=== PATIENT | male | born 1965 | race Two or more races ===

== ENCOUNTER → 2017-02-18 | Outpatient (CLI) | payer BC ==
--- NOTE | 2017-02-18 15:11 | RAD ---
Indication right anterior shoulder pain no known injury. Internally and externally rotated views of the right shoulder as well as a Y view were obtained. No bony abnormality is seen
== END | disposition home or self-care (01) ==
LOC: RAD 14:39
PROVIDERS: ATTEND Family Medicine
DX: M25.511 Pain in right shoulder (principal)
CPT/HCPCS: 73030

== ENCOUNTER 2017-05-27 19:50 | Inpatient (IN) | payer BC ==
[~2017-05-27] VITALS: Ht 170.2 cm; Wt 94.9 kg
--- NOTE | 2017-05-27 21:22 | PHYS DOC ---
Past Medical History Past Medical History: Diabetes-Type I, Hypertension, Other Additional Past Medical Histor: rheumatic fever Past Surgical History: Cholecystectomy Alcohol Use: Rarely Drug Use: None Adult General Chief Complaint Chief Complaint: MULTIPLE COMPLAINTS HPI HPI Patient is a 51 year old male who presents with complaint of abdominal pain and body aches. Patient states his symptoms have been present over the past 2-3 days. Patient states that he has been having fever off and on at home. Patient denies any associated nausea or vomiting and has denied any diarrhea. Patient states that the pain is generalized throughout his abdomen. Patient rates his pain currently as 5 out of 10. Patient denies any known exacerbating or alleviating factors at this time. Patient has history of hypertension and diabetes mellitus. The patient states that he has not been taking any medications for several weeks. Patient states that he followed previously with Dr. Maddox, however he is switching over to see Dr. Quezada. Patient states that he took ibuprofen earlier today at approximate 1400 for treatment of fever. Patient states that this does not help significantly with his abdominal pain. Review of Systems Review of Systems Constitutional: Fever, chills, bodyaches[] Eyes: Denies change in visual acuity, redness, or eye pain [] HENT: Denies nasal congestion or sore throat [] Respiratory: Denies cough or shortness of breath [] Cardiovascular: Denies chest pain or edema[] GI: Abdominal pain, denies nausea, vomiting, bloody stools or diarrhea [] : Denies dysuria or hematuria [] Musculoskeletal: Denies back pain or joint pain [] Integument: Denies rash or skin lesions [] Neurologic: Denies headache, focal weakness or sensory changes [] Current Medications Current Medications Current Medications Medications (Trade) Dose Ordered Sig/[facility] Start Time Stop Time Status Last Admin Dose Admin Fentanyl Citrate (Fentanyl 2ml Vial) 50 mcg PRN Q15MIN PRN 05/27/17 21:30 05/28/17 21:29 05/27/17 22:31 50 MCG Info (Do NOT chart on this entry -- for MONITORING) 1 each PRN DAILY PRN 05/27/17 21:45 05/29/17 21:44 Iohexol (Omnipaque 300 Mg/ml) 60 ml 1X ONCE 05/27/17 21:45 05/27/17 21:46 DC 05/27/17 22:40 60 ML Ondansetron HCl (Zofran) 4 mg 1X ONCE 05/27/17 21:30 05/27/17 21:31 DC 05/27/17 21:33 4 MG Sodium Chloride 1,000 ml @ 720 mls/hr Q1H24M 05/27/17 21:30 05/28/17 01:30 05/27/17 21:30 720 MLS/HR Allergies Allergies Allergies Coded Allergies Type Severity Reaction Last Updated Verified tetanus and diphtheria toxoids Allergy Unknown Anaphylaxis 05/27/17 Yes Physical Exam Physical Exam Constitutional: Alert, afebrile, hypertensive, appears in moderate discomfort. [ ] HENT: Normocephalic, atraumatic, bilateral external ears normal, oropharynx moist, no oral exudates, nose normal. [] Eyes: PERRLA, EOMI, conjunctiva normal, no discharge. [] Neck: Normal range of motion, no tenderness, supple, no stridor. [] Cardiovascular: Tachycardia, regular rhythm, no murmur [] Lungs & Thorax: Bilateral breath sounds clear to auscultation [] Abdomen: Bowel sounds normal, soft, diffusely tender in all 4 quadrants, minimal guarding, no rebound tenderness, no masses, no pulsatile masses. [] Skin: Warm, dry, no erythema, hyperpigmentation of the bilateral lower extremities. [] Back: No tenderness, no CVA tenderness. [] Extremities: No tenderness, no cyanosis, no clubbing, ROM intact, no edema. [] Neurologic: Alert and oriented X 3, normal motor function, normal sensory function, no focal deficits noted. [] Current Patient Data Vital Signs Vital Signs Date Time Temp Pulse Resp B/P (MAP) Pulse Ox O2 Delivery O2 Flow Rate FiO2 05/27/17 22:31 20 96 Room Air 05/27/17 20:20 98.2 110 209/105 (139) 98.2 Lab Values Laboratory Tests Test 05/27/17 20:36 05/27/17 20:45 05/27/17 22:00 White Blood Count 5.4 x10^3/uL (4.0-11.0) Red Blood Count 4.71 x10^6/uL (4.30-5.70) Hemoglobin 13.9 g/dL (13.0-17.5) Hematocrit 39.9 % (39.0-53.0) Mean Corpuscular Volume 85 fL (79-100) Mean Corpuscular Hemoglobin 30 pg (25-35) Mean Corpuscular Hemoglobin Concent 35 g/dL (31-37) Red Cell Distribution Width 12.8 % (11.5-14.5) Platelet Count 125 x10^3/uL (140-400) L Neutrophils (%) (Auto) 78 % (31-73) H Lymphocytes (%) (Auto) 13 % (24-48) L Monocytes (%) (Auto) 9 % (0-9) Eosinophils (%) (Auto) 0 % (0-3) Basophils (%) (Auto) 1 % (0-3) Neutrophils # (Auto) 4.2 x10^3uL (1.8-7.7) Lymphocytes # (Auto) 0.7 x10^3/uL (1.0-4.8) L Monocytes # (Auto) 0.5 x10^3/uL (0.0-1.1) Eosinophils # (Auto) 0.0 x10^3/uL (0.0-0.7) Basophils # (Auto) 0.0 x10^3/uL (0.0-0.2) Prothrombin Time 13.2 SEC (11.7-14.0) Prothrombin Time INR 1.1 (0.8-1.1) PTT 32 SEC (24-38) Sodium Level 134 mmol/L (136-145) L Potassium Level 4.5 mmol/L (3.5-5.1) Chloride Level 100 mmol/L (98-107) Carbon Dioxide Level 25 mmol/L (21-32) Anion Gap 9 (6-14) Blood Urea Nitrogen 18 mg/dL (8-26) Creatinine 1.4 mg/dL (0.7-1.3) H Estimated GFR (Cockcroft-Gault) 53.2 BUN/Creatinine Ratio 13 (6-20) Glucose Level 288 mg/dL (70-99) H Calcium Level 8.4 mg/dL (8.5-10.1) L Total Bilirubin 0.6 mg/dL (0.2-1.0) Aspartate Amino Transferase (AST) 67 U/L (15-37) H Alanine Aminotransferase (ALT) 87 U/L (16-63) H Alkaline Phosphatase 97 U/L (46-116) Creatine Kinase 166 U/L (39-308) Creatine Kinase MB (Mass) < 0.5 ng/mL (0.0-3.6) Creatine Kinase MB Relative Index 0.3 % (0-4) Troponin I Quantitative < 0.017 ng/mL (0.000-0.055) Total Protein 7.2 g/dL (6.4-8.2) Albumin 3.1 g/dL (3.4-5.0) L Albumin/Globulin Ratio 0.8 (1.0-1.7) L Lipase 180 U/L (73-393) Urine Collection Type Unknown Urine Color Yellow Urine Clarity Clear Urine pH 6.0 Urine Specific [place] >=1.030 Urine Protein >=300 mg/dL (NEG-TRACE) Urine Glucose (UA) >=1000 mg/dL (NEG) Urine Ketones (Stick) Trace mg/dL (NEG) Urine Blood Moderate (NEG) Urine Nitrite Negative (NEG) Urine Bilirubin Negative (NEG) Urine Urobilinogen Dipstick 1.0 mg/dL (0.2 mg/dL) Urine Leukocyte Esterase Negative (NEG) Urine RBC 6-10 /HPF (0-2) Urine WBC 0 /HPF (0-4) Urine Squamous Epithelial Cells Occ /LPF Urine Amorphous Sediment Present /HPF Urine Bacteria 0 /HPF (0-FEW) Urine Mucus Slight /LPF Lactic Acid Level 1.1 mmol/L (0.4-2.0) Laboratory Tests 05/27/17 20:36 Laboratory Tests 05/27/17 20:36 EKG EKG Interpreted by me: Heart rate 107, sinus tachycardia, leftward axis, ST elevations in V1 and V2, no contiguous reciprocal changes noted[] Radiology/Procedures Radiology/Procedures One view chest x-ray interpreted by me: No infiltrates, no effusions, normal cardiac silhouette [facility] [address] [place] [address] IMAGING REPORT Signed PATIENT: GAGAN ZARATE ACCOUNT: [id number] : 1965 LOCATION: ER AGE: 51 SEX: M EXAM STATUS: REG ER ORD. PHYSICIAN: ERIC PATEL MD REASON: abdominal pain, fever PROCEDURE: CT ABD PELV W/ IV CONTRST ONLY CT ABD PELV W/ IV CONTRST ONLY dated 05/27/2017 10:38 PM Indication: Generalized abdominal pain, pain for 2 daysGENERAL ABD PAIN X2DAYS
OMNI 300 60ML
PRIOR SENT, HX OF FELIPA SX. Comparison: 07/27/2008 Technique: Contiguous axial imaging of the abdomen and pelvis performed after the intravenous administration of 60 cc Omnipaque 300. One or more of the following individualized dose reduction techniques were utilized for this examination: 1. Automated exposure control 2. Adjustment of the mA and/or kV according to patient size 3. Use of iterative reconstruction technique Findings: Limited images of lung bases are clear. Heart size mildly enlarged. No pleural or pericardial effusion. Liver, spleen, pancreas, adrenal glands are unremarkable. The gallbladder is surgically absent. There is a 7 mm calcific stone at the left kidney midpole. No calcific stone on the right. Mild nonspecific inflammatory changes in the bilateral perinephric fat. No apparent ureteral stone or hydronephrosis. Unopacified GI tract normal in caliber and contour. No focal bowel wall thickening. No inflammatory stranding in the mesentery. The appendix is normal in caliber. No ascites or lymphadenopathy. Images of pelvis show nondistended urinary bladder. Prostate gland normal in size. No free pelvic fluid or pelvic lymphadenopathy. Bone windows show no acute findings. Mild multilevel spondylosis. IMPRESSION: 1. No acute abnormality of abdomen or pelvis. Normal appendix. 2. Left-sided nephrolithiasis, nonobstructive. 3. Nonspecific inflammatory stranding the bilateral perinephric fat. Consider pyelonephritis. 4. Status post cholecystectomy. Electronically signed by: Mundo Zarate MD (05/27/2017 10:58 PM) [facility] DICTATED and SIGNED BY: MUNDO ZARATE MD DATE: 05/27/17 5839 CC: ERIC PATEL MD; MUNDO QUEZADA MD ~ [] Course & Med Decision Making Course & Med Decision Making Pertinent Labs and Imaging studies reviewed. (See chart for details) The patient's EKG showed ST elevations in V1 and V2. I spoke with Dr. Lindquist who came and evaluated the patient and reviewed the patient's EKG in the emergency department. He stated that this did not appear consistent with acute STEMI but noted that it could be due to demand ischemia from patient's current illness. Patient was noted to be severely hypertensive. The patient will be started on labetalol and hydralazine for treatment. Patient's CT of the abdomen did not show acute abnormalities. Of note the patient had stranding around his kidneys which may not represent an acute process as patient does have history of rheumatic fever. The patient's urinalysis shows high glucose and protein representing a possible chronic nephropathy. Due to unclear etiology for patient 's symptoms, the patient will require admission to the hospital for further evaluation and treatment. I contacted Dr. Quezada at the request of the patient, however he states he has not seen the patient in clinic and stated that he would like the patient to be admitted to the hospitalist. I spoke with Dr. Cesar who accepted care patient in hospital. Dragon Disclaimer Dragon Disclaimer This electronic medical record was generated, in whole or in part, using a voice recognition dictation system. Departure Departure Impression: Primary Impression: Malignant hypertension Additional Impressions: SIRS (systemic inflammatory response syndrome) Uncontrolled diabetes mellitus Abdominal pain Abnormal EKG Disposition: ADMITTED INPATIENT Admitting Physician: Sravani Cesar Condition: GUARDED Referrals: MUNDO QUEZADA MD (PCP) Problem Qualifiers Additional Impressions: Uncontrolled diabetes mellitus Diabetes mellitus type: other specified (including IVETH) Diabetes mellitus complication status: with hyperglycemia Diabetes mellitus bed bug exterminator insulin use: unspecified alf insulin use status Qualified Codes: E13.65 - Other specified diabetes mellitus with hyperglycemia Abdominal pain Abdominal location: generalized Qualified Codes: R10.84 - Generalized abdominal pain ERIC PATEL MD May 27, 2017 21:22
[2017-05-27 21:28] LABS: BILIRUBIN,URINE NEGATIVE (NEG); GLUCOSE,URINE >=1000 mg/dL (NEG); NITRITE,URINE NEGATIVE (NEG); PROTEIN,URINE >=300 mg/dL (NEG-TRACE)
[2017-05-27 21:29] LABS: BASO % 1 % (0-3); EOS % 0 % (0-3); HEMATOCRIT 39.9 % (39.0-53.0); HEMOGLOBIN 13.9 g/dL (13.0-17.5); LYMPH # 0.7 x10^3/uL (1.0-4.8); LYMPH % 13 % (24-48); MEAN CORPUSCULAR HEMOGLOBIN 30 pg (25-35); MEAN CORPUSCULAR HGB CONC 35 g/dL (31-37); MEAN CORPUSCULAR VOLUME 85 fL (79-100); MONO % 9 % (0-9); NEUT % 78 % (31-73); PLATELET COUNT 125 x10^3/uL (140-400); RED BLOOD COUNT 4.71 x10^6/uL (4.30-5.70); RED CELL DISTRIBUTION WIDTH 12.8 % (11.5-14.5); WHITE BLOOD COUNT 5.4 x10^3/uL (4.0-11.0)
[2017-05-27] MEDS ORDERED: ONDANSETRON PF 4 MG/2 ML VIAL. IV ONE (21:30)
[2017-05-27] MEDS: IV NORMAL SALINE 1000ML BAG 1,000 ML IV SCH ×2 (21:30→22:54)
[2017-05-27] MEDS: fentaNYL PF VIAL 100 MCG/2 ML VIAL IV PRN ×3 (21:34→23:58)
[2017-05-27 21:36] LABS: BACTERIA,URINE 0 /HPF (0-FEW); SQUAMOUS EPITHELIAL CELL,UR OCC /LPF; WBC,URINE 0 /HPF (0-4)
[2017-05-27 21:38] LABS: CALCIUM 8.4 mg/dL (8.5-10.1); CREATININE 1.4 mg/dL (0.7-1.3); GFR 53.2; POTASSIUM 4.5 mmol/L (3.5-5.1)
[2017-05-27 21:40] LABS: INR 1.1 (0.8-1.1); PROTHROMBIN TIME PATIENT 13.2 SEC (11.7-14.0)
[2017-05-27 21:44] LABS: ALBUMIN 3.1 g/dL (3.4-5.0); ALBUMIN/GLOBULIN RATIO 0.8 (1.0-1.7); TOTAL BILIRUBIN 0.6 mg/dL (0.2-1.0); TOTAL PROTEIN 7.2 g/dL (6.4-8.2)
[2017-05-27] MEDS ORDERED: CONTRAST GIVEN MC PRN (21:45)
[2017-05-27] MEDS ORDERED: IOHEXOL 300 MG/ML 75 ML VIAL IV ONE (21:45)
[2017-05-27 22:48] LABS: CREATINE KINASE 166 U/L (39-308)
[2017-05-27 22:49] LABS: CKMB MASS < 0.5 ng/mL (0.0-3.6)
--- NOTE | 2017-05-27 23:01 | RAD ---
CT ABD PELV W/ IV CONTRST ONLY dated 05/27/2017 10:38 PM Indication: Generalized abdominal pain, pain for 2 daysGENERAL ABD PAIN X2DAYS
OMNI 300 60ML
PRIOR SENT, HX OF FELIPA SX. Comparison: 07/27/2008 Technique: Contiguous axial imaging of the abdomen and pelvis performed after the intravenous administration of 60 cc Omnipaque 300. One or more of the following individualized dose reduction techniques were utilized for this examination: 1. Automated exposure control 2. Adjustment of the mA and/or kV according to patient size 3. Use of iterative reconstruction technique Findings: Limited images of lung bases are clear. Heart size mildly enlarged. No pleural or pericardial effusion. Liver, spleen, pancreas, adrenal glands are unremarkable. The gallbladder is surgically absent. There is a 7 mm calcific stone at the left kidney midpole. No calcific stone on the right. Mild nonspecific inflammatory changes in the bilateral perinephric fat. No apparent ureteral stone or hydronephrosis. Unopacified GI tract normal in caliber and contour. No focal bowel wall thickening. No inflammatory stranding in the mesentery. The appendix is normal in caliber. No ascites or lymphadenopathy. Images of pelvis show nondistended urinary bladder. Prostate gland normal in size. No free pelvic fluid or pelvic lymphadenopathy. Bone windows show no acute findings. Mild multilevel spondylosis. IMPRESSION: 1. No acute abnormality of abdomen or pelvis. Normal appendix. 2. Left-sided nephrolithiasis, nonobstructive. 3. Nonspecific inflammatory stranding the bilateral perinephric fat. Consider pyelonephritis. 4. Status post cholecystectomy. Electronically signed by: Mundo Zarate MD (05/27/2017 10:58 PM) [facility]
[2017-05-27 23:43] LABS: OBC FLU VALID
[2017-05-28] VITALS (8 sets, daily range): BP systolic 104–191; BP diastolic 51–94
[2017-05-28] MEDS ORDERED: ONDANSETRON PF 4 MG/2 ML VIAL. IV PRN (00:15)
[2017-05-28] MEDS: IV NORMAL SALINE 1000ML BAG 1,000 ML IV SCH ×3 (00:18→02:05)
[2017-05-28] MEDS: hydrALAZINE 20 MG/ML VIAL. IVP PRN ×2 (00:21→04:07)
[2017-05-28] MEDS ORDERED: AMLO1CAP15 PO (01:53)
[2017-05-28] MEDS ORDERED: ACET500T68 PO (01:53)
[2017-05-28] MEDS ORDERED: TERB250T8 PO (01:53)
[2017-05-28] MEDS ORDERED: BISO1TAB4 PO (01:53)
[2017-05-28] MEDS ORDERED: EMPA25TA PO (01:53)
[2017-05-28] MEDS ORDERED: GLIM4TAB2 PO (01:53)
[2017-05-28] MEDS ORDERED: METF100010 PO (01:53)
[2017-05-28] MEDS ORDERED: DIPH50CA PO (01:53)
[2017-05-28] MEDS ORDERED: INSU100I32 SQ (01:53)
[2017-05-28] MEDS ORDERED: IBUP-1027 PO (01:53)
[2017-05-28] MEDS ORDERED: HYDR25TA9 PO (01:53)
[2017-05-28] MEDS: fentaNYL PF VIAL 100 MCG/2 ML VIAL IV PRN ×3 (02:04→06:49)
--- NOTE | 2017-05-28 07:04 | EKG ---
[facility] [address] [place] [address] Test Date: 2017-05-27 Test Time: 21:57:26 Pat Name: GAGAN ZARATE Department: Room: 210 1 Gender: M Roaster Operator: : 1965 Requested By: ERIC PATEL Order Number: [id number] Reading MD: Addie Diane Measurements Intervals [place] Rate: 107 P: 22 NM: 168 QRS: -18 QRSD: 94 T: 11 QT: 308 QTc: 416 Interpretive Statements SINUS TACHYCARDIA LEFT ATRIAL ABNORMALITY ABNORMAL ECG Electronically Signed On 05-28-2017 19:56:33 CDT by Addie Diane
[2017-05-28] MEDS: ACETAMINOPHEN 325 MG TABLET. PO PRN ×2 (08:47→21:15)
[2017-05-28] MEDS: LABETALOL 20 MG/4 ML DISP.SYRIN. IVP PRN ×2 (08:48→21:31)
--- NOTE | 2017-05-28 08:49 | RAD ---
Chest radiograph 05/27/2017 11:18 PM Indication: Fever Comparison: Chest radiograph 07/20/2008 Technique: Single portable upright frontal view of the chest is provided. Findings: Cardiomediastinal silhouette is within normal limits. No pleural effusions, pulmonary vascular congestion or pneumothorax. There is a 14 mm nodular opacity in the left upper lobe. There is subsegmental atelectasis of the left lung base. Osseous structures are normal. Impression: There is a 14 mm nodular opacity in the left upper lobe. This finding appears stable dating back to 2007 and is favored to represent a benign granuloma. There is subsegmental atelectasis and/or scarring at the left lung base.
[2017-05-28] MEDS ORDERED: FLU VACC QS2017-18 (36MOS+)/PF 0.5 ML SYRINGE. VAX IM ONE (09:00)
[2017-05-28] MEDS ORDERED: PNEUMOC CONJ VACC 23-VALENT 0.5 ML VIAL. VAX IM ONE (09:00)
[2017-05-28] MEDS ORDERED: INFLUENZA VAX SCREEN BY RX. MC ONE (09:00)
[2017-05-28] MEDS ORDERED: PNEUMOCOCCAL VAX SCREEN BY RX. MC ONE (09:00)
--- NOTE | 2017-05-28 09:48 | PDOC2 ---
DANE BABCOCK STAFF WEAPONS OFFICER 05/28/17 0948: CARDIAC CONSULT DATE OF CONSULT Date of Consult DATE: 05/28/17 TIME: 09:23 REASON FOR CONSULT Reason for Consult: Malignant HTN, abnormal EKG REFERRING PHYSICIAN Referring Physician: Eliceo SOURCE Source: Chart review, Patient HISTORY OF PRESENT ILLNESS HISTORY OF PRESENT ILLNESS This is a 51 yo male admitted for complains of abdominal pain and malaise. Reports of 3 days not taking meds due to not feeling good and tends to become hypoglycemic when sick. reports of some some nausea and VALLE mainly due to pain when taking deep breaths. No PND, orthopnea. . Positive for fever and chills and body aches mainly diffuse then localized to right side. Denies any CAD, VTE, falls or any injury or syncope. Denies CP, palpitations. PAST MEDICAL HISTORY Cardiovascular: HTN Pulmonary: No pertinent hx CENTRAL NERVOUS SYSTEM: Other (No pertinent history) GI: No pertinent hx Heme/Onc: No pertinent hx Hepatobiliary: No pertinent hx Psych: No pertinent hx Musculoskeletal: Osteoarthritis Rheumatologic: No pertinent hx Infectious disease: No pertinent hx ENT: Sincusitis, Allergic Rhinitis Renal/: Other (nephrolithiasis 10 yrs ago) Endocrine: Diabetes (2) Dermatology: Other (toe fungal infection) PAST SURGICAL HISTORY Past Surgical History: Cholecystectomy, Other (nasal surgery) FAMILY HISTORY Family History noncontributory to CV SOCIAL HISTORY Smoke: No (3 times a week cigar) ALCOHOL: none Drugs: None Lives: with Family CURRENT MEDICATIONS CURRENT MEDICATIONS Current Medications Medications (Trade) Dose Ordered Sig/Zeyad Route PRN Reason Start Time Stop Time Status Last Admin Dose Admin Sodium Chloride 1,000 ml @ 720 mls/hr Q1H24M IV 05/27/17 21:30 05/28/17 01:30 DC 05/27/17 21:30 Fentanyl Citrate (Fentanyl 2ml Vial) 50 mcg PRN Q15MIN PRN IV PAIN GREATER THAN 3/10 05/27/17 21:30 05/28/17 21:29 05/28/17 02:04 Ondansetron HCl (Zofran) 4 mg 1X ONCE IV 05/27/17 21:30 05/27/17 21:31 DC 05/27/17 21:33 Iohexol (Omnipaque 300 Mg/ml) 60 ml 1X ONCE IV 05/27/17 21:45 05/27/17 21:46 DC 05/27/17 22:40 Ondansetron HCl (Zofran) 4 mg PRN Q8HRS PRN IV NAUSEA/VOMITING 05/28/17 00:15 05/29/17 00:14 05/28/17 02:04 Fentanyl Citrate (Fentanyl 2ml Vial) 50 mcg PRN Q2HR PRN IV PAIN 05/28/17 00:15 05/29/17 00:14 05/28/17 06:49 Sodium Chloride 1,000 ml @ 75 mls/hr [id number] IV 05/28/17 00:15 05/29/17 00:14 05/28/17 02:05 Acetaminophen (Tylenol) 650 mg PRN Q4HRS PRN PO FEVER 05/28/17 00:15 05/29/17 00:14 05/28/17 08:47 Labetalol HCl (Normodyne) 20 mg PRN Q2HR PRN IVP HYPERTENSION, SEE COMMENTS 05/28/17 00:15 05/28/17 08:48 Hydralazine HCl (Apresoline Inj) 10 mg PRN Q4HRS PRN IVP ELEVATED BP, SEE COMMENTS 05/28/17 00:15 05/28/17 04:07 ALLERGIES ALLERGIES: Coded Allergies: tetanus and diphtheria toxoids (Verified Allergy, Unknown, Anaphylaxis, ) ROS Review of System 14 point ROS evaluated with pertinent positives noted per HPI PHYSICAL EXAM General: Alert, Oriented X3, Cooperative, No acute distress HEENT: Atraumatic, Mucous membr. moist/pink Lungs: Normal air movement, Other (faint basilar crackles) Abdomen: Soft, No tenderness Extremities: No cyanosis, No edema Skin: No breakdown, No significant lesion Neuro: Normal speech, Sensation intact Psych/Mental Status: Mental status NL, Mood NL MUSCULOSKELETAL: Osteoarthritic changes both hands VITALS VITALS Vital Signs Date Time Temp Pulse Resp B/P (MAP) Pulse Ox O2 Delivery O2 Flow Rate FiO2 05/28/17 08:48 118 187/88 05/28/17 07:00 101.2 20 93 Room Air 101.2 LABS Lab: Laboratory Tests Test 05/27/17 20:36 05/27/17 20:45 05/27/17 22:00 05/27/17 23:17 White Blood Count 5.4 x10^3/uL (4.0-11.0) Red Blood Count 4.71 x10^6/uL (4.30-5.70) Hemoglobin 13.9 g/dL (13.0-17.5) Hematocrit 39.9 % (39.0-53.0) Mean Corpuscular Volume 85 fL (79-100) Mean Corpuscular Hemoglobin 30 pg (25-35) Mean Corpuscular Hemoglobin Concent 35 g/dL (31-37) Red Cell Distribution Width 12.8 % (11.5-14.5) Platelet Count 125 x10^3/uL (140-400) Neutrophils (%) (Auto) 78 % (31-73) Lymphocytes (%) (Auto) 13 % (24-48) Monocytes (%) (Auto) 9 % (0-9) Eosinophils (%) (Auto) 0 % (0-3) Basophils (%) (Auto) 1 % (0-3) Neutrophils # (Auto) 4.2 x10^3uL (1.8-7.7) Lymphocytes # (Auto) 0.7 x10^3/uL (1.0-4.8) Monocytes # (Auto) 0.5 x10^3/uL (0.0-1.1) Eosinophils # (Auto) 0.0 x10^3/uL (0.0-0.7) Basophils # (Auto) 0.0 x10^3/uL (0.0-0.2) Prothrombin Time 13.2 SEC (11.7-14.0) Prothromb Time International Ratio 1.1 (0.8-1.1) Activated Partial Thromboplast Time 32 SEC (24-38) Sodium Level 134 mmol/L (136-145) Potassium Level 4.5 mmol/L (3.5-5.1) Chloride Level 100 mmol/L (98-107) Carbon Dioxide Level 25 mmol/L (21-32) Anion Gap 9 (6-14) Blood Urea Nitrogen 18 mg/dL (8-26) Creatinine 1.4 mg/dL (0.7-1.3) Estimated GFR (Cockcroft-Gault) 53.2 BUN/Creatinine Ratio 13 (6-20) Glucose Level 288 mg/dL (70-99) Calcium Level 8.4 mg/dL (8.5-10.1) Total Bilirubin 0.6 mg/dL (0.2-1.0) Aspartate Amino Transf (AST/SGOT) 67 U/L (15-37) Alanine Aminotransferase (ALT/SGPT) 87 U/L (16-63) Alkaline Phosphatase 97 U/L (46-116) Creatine Kinase 166 U/L (39-308) Creatine Kinase MB (Mass) < 0.5 ng/mL (0.0-3.6) Creatine Kinase MB Relative Index 0.3 % (0-4) Troponin I Quantitative < 0.017 ng/mL (0.000-0.055) Total Protein 7.2 g/dL (6.4-8.2) Albumin 3.1 g/dL (3.4-5.0) Albumin/Globulin Ratio 0.8 (1.0-1.7) Lipase 180 U/L (73-393) Urine Collection Type Unknown Urine Color Yellow Urine Clarity Clear Urine pH 6.0 Urine Specific [place] >=1.030 Urine Protein >=300 mg/dL (NEG-TRACE) Urine Glucose (UA) >=1000 mg/dL (NEG) Urine Ketones (Stick) Trace mg/dL (NEG) Urine Blood Moderate (NEG) Urine Nitrite Negative (NEG) Urine Bilirubin Negative (NEG) Urine Urobilinogen Dipstick 1.0 mg/dL (0.2 mg/dL) Urine Leukocyte Esterase Negative (NEG) Urine RBC 6-10 /HPF (0-2) Urine WBC 0 /HPF (0-4) Urine Squamous Epithelial Cells Occ /LPF Urine Amorphous Sediment Present /HPF Urine Bacteria 0 /HPF (0-FEW) Urine Mucus Slight /LPF Lactic Acid Level 1.1 mmol/L (0.4-2.0) Influenza Type A Antigen Negative (NEGATIVE) Influenza Type B Antigen Negative (NEGATIVE) Test 05/28/17 05:50 05/28/17 08:25 Troponin I Quantitative < 0.017 ng/mL (0.000-0.055) Lactic Acid Level 1.0 mmol/L (0.4-2.0) ASSESSMENT/PLAN ASSESSMENT/PLAN 1. Abdominal pain with fever: Tmax overnight 101.2. Possible pyelonephritis/ nephrolithiasis based on CT. Defer to PCP 2. Accelerated HTN: due to noncompliance, has not been taking BP meds for 3 days. 3. DM2: uncontrolled, has not taken meds for 3 days due to #1. 4. Suspecting CKD: unknown baseline with macroalbuminuria 5. Abnormal EKG: Nonspecific ST changes likely from uncontrolled HTN. Troponin series normal and no CP. Recommendations 1. TTE today 2. TSH, lipids. Will need to get started on statin per level with noted DM 3. Antibiotic coverage per PCP. 4. Resume home BP meds. Hold HCTZ for now since pt has not been hydrating self well. Problems: JUAN MANUEL OLGUIN MD 05/28/17 1034: CARDIAC CONSULT ALLERGIES ALLERGIES: Coded Allergies: tetanus and diphtheria toxoids (Verified Allergy, Unknown, Anaphylaxis, ) ASSESSMENT/PLAN ASSESSMENT/PLAN Pt. seen and examined. Agree with above [address]RE[address] REPORTER note. Recs as above. Will f/u on TTE and determine need for any further testing. Thanks for consultation. Problems: DANE BABCOCK APRN May 28, 2017 09:48 JUAN MANUEL OLGUIN MD May 28, 2017 10:34
[2017-05-28] MEDS ORDERED: amLODIPine BESYLATE 10 MG TABLET PO SCH ×2 (10:00→17:00)
[2017-05-28 10:19] LABS: CALCIUM 7.8 mg/dL (8.5-10.1); CREATININE 1.3 mg/dL (0.7-1.3); MAGNESIUM 1.8 mg/dL (1.8-2.4)
[2017-05-28 10:20] LABS: CHOLESTEROL/HDL RATIO 5.6
[2017-05-28] MEDS: CARVEDILOL 6.25 MG TABLET. PO SCH ×2 (10:41→17:10)
[2017-05-28] MEDS: LOSARTAN POTASSIUM 50 MG TABLET. PO SCH (10:42)
--- NOTE | 2017-05-28 11:09 | CARD ---
APPROVED REPORT EXAM: Two-dimensional and M-mode echocardiogram with Doppler and color Doppler. Other Information Quality : Good INDICATION Hypertension/HCVD 2D DIMENSIONS RVDd2.4 (2.9-3.5cm)Left Atrium(2D)4.4 (1.6-4.0cm) IVSd1.6 (0.7-1.1cm)Aortic Root(2D)3.1 (2.0-3.7cm) LVDd4.6 (3.9-5.9cm)LVOT Diameter2.1 (1.8-2.4cm) PWd1.2 (0.7-1.1cm)LVDs2.8 (2.5-4.0cm) FS (%) 30.0 %SV68.0 ml LVEF(%)60.0 (>50%) Aortic Valve AoV Peak Tu.150.2cm/sAoV VTI22.9cm AO Peak GR.9.0mmHgLVOT VTI 18.32cm AO Mean GR.5mmHgAVA (VTI)2.80cm2 Mitral Valve MV E Rgnikqhi228.6cm/sMV DECEL [id number] MV A Oubpwuhs575.9cm/sE/A Ratio0.9 Pulmonary Vein S1 Pbbphngn92.7cm/sS2 Eqnlafvr51.22cm/s D2 Korphbpr69.2cm/s LEFT VENTRICLE The left ventricle is normal size. There is mild to moderate concentric left ventricular hypertrophy. The left ventricular systolic function is normal and the ejection fraction is within normal range. T he Ejection Fraction is 60-65%. There is normal LV segmental wall motion. The left ventricular diasto lic function and filling is normal for age. RIGHT VENTRICLE The right ventricle is normal size. The right ventricular systolic function is normal. ATRIA The left atrium is mildly dilated. The right atrium size is normal. The interatrial septum is intact with no evidence for an atrial septal defect or patent foramen ovale as noted on 2-D or Doppler imagi ng. AORTIC VALVE The aortic valve is normal in structure and function. Doppler and Color Flow revealed no significant aortic regurgitation. There is no significant aortic valvular stenosis. MITRAL VALVE The mitral valve is normal in structure and function. There is no evidence of mitral valve prolapse. There is no mitral valve stenosis. Doppler and Color-flow revealed trace mitral regurgitation. TRICUSPID VALVE The tricuspid valve is normal in structure and function. Doppler and Color Flow revealed no tricuspid valve regurgitation noted. There is no tricuspid valve stenosis. PULMONIC VALVE Doppler and Color Flow revealed trace to mild pulmonic valvular regurgitation. There is no pulmonic v alvular stenosis. GREAT VESSELS The aortic root is normal in size. The ascending aorta is normal in size. The IVC was not visualized. PERICARDIAL EFFUSION There is no evidence of significant pericardial effusion. Critical Notification Critical Value: No <Conclusion> The left ventricular systolic function is normal and the ejection fraction is within normal range. Th e Ejection Fraction is 60-65%. There is normal LV segmental wall motion. There is mild to moderate concentric left ventricular hypertrophy.
--- NOTE | 2017-05-28 14:24 | PDOC2 ---
GI CONSULT Reason For Consult: RUQ pain HPI: HPI: 51 y/o male who has been ill w/ myalgias and fever since 05/25/17. Generally when he gets sick, he has hypoglycemia and doesn't take his regular medications because it makes him feel worse. Admitted w/ accelerated HTN w/ EKG changes, has seen cardiology. We were asked to see re: RUQ pain which has been bothersome for a day or so. Currently feeling much better. No similar pain previously. No n/v, reflux/heartburn, dysphagia/odynophagia, diarrhea, constipation, hematochezia, melena, or weight loss. Decreased appetite since has been ill, tolerating clear liquids today. No previous EGD or colonoscopy. S/p cholecystectomy. No liver or pancreas history. FH significant for pancreatic and stomach cancer, however. H/o IDDM, says last A1c 8.4. PMH: PMH: HTN, IDDM, rheumatic fever, OA, nephrolithiasis, cholecystectomy, nasal surgery (as a baby) FH: Family History: Cancer (father - pancreatic cancer, brother - stomach cancer) Social History: Smoke: <1 pack per day (cigars when golfing) ALCOHOL: occassional (golfing) Drugs: None ROS: GEN: +fever HEENT: Denies blurred vision, sore throat CV: Denies chest pain RESP: Denies shortness of air, cough GI: Per HPI : Denies hematuria, dysuria ENDO: Denies weight changes NEURO: Denies confusion, dizziness MSK: right shoulder pain occasionally, bodyaches SKIN: Denies jaundice, pruritus Vitals: Vitals: Vital Signs Date Time Temp Pulse Resp B/P (MAP) Pulse Ox O2 Delivery O2 Flow Rate FiO2 05/28/17 11:00 98.7 94 18 147/83 (104) 97 Room Air 98.7 Labs: Labs: Laboratory Tests Test 05/27/17 20:36 05/27/17 20:45 05/27/17 22:00 05/27/17 23:17 White Blood Count 5.4 x10^3/uL (4.0-11.0) Red Blood Count 4.71 x10^6/uL (4.30-5.70) Hemoglobin 13.9 g/dL (13.0-17.5) Hematocrit 39.9 % (39.0-53.0) Mean Corpuscular Volume 85 fL (79-100) Mean Corpuscular Hemoglobin 30 pg (25-35) Mean Corpuscular Hemoglobin Concent 35 g/dL (31-37) Red Cell Distribution Width 12.8 % (11.5-14.5) Platelet Count 125 x10^3/uL (140-400) Neutrophils (%) (Auto) 78 % (31-73) Lymphocytes (%) (Auto) 13 % (24-48) Monocytes (%) (Auto) 9 % (0-9) Eosinophils (%) (Auto) 0 % (0-3) Basophils (%) (Auto) 1 % (0-3) Neutrophils # (Auto) 4.2 x10^3uL (1.8-7.7) Lymphocytes # (Auto) 0.7 x10^3/uL (1.0-4.8) Monocytes # (Auto) 0.5 x10^3/uL (0.0-1.1) Eosinophils # (Auto) 0.0 x10^3/uL (0.0-0.7) Basophils # (Auto) 0.0 x10^3/uL (0.0-0.2) Prothrombin Time 13.2 SEC (11.7-14.0) Prothromb Time International Ratio 1.1 (0.8-1.1) Activated Partial Thromboplast Time 32 SEC (24-38) Sodium Level 134 mmol/L (136-145) Potassium Level 4.5 mmol/L (3.5-5.1) Chloride Level 100 mmol/L (98-107) Carbon Dioxide Level 25 mmol/L (21-32) Anion Gap 9 (6-14) Blood Urea Nitrogen 18 mg/dL (8-26) Creatinine 1.4 mg/dL (0.7-1.3) Estimated GFR (Cockcroft-Gault) 53.2 BUN/Creatinine Ratio 13 (6-20) Glucose Level 288 mg/dL (70-99) Calcium Level 8.4 mg/dL (8.5-10.1) Total Bilirubin 0.6 mg/dL (0.2-1.0) Aspartate Amino Transf (AST/SGOT) 67 U/L (15-37) Alanine Aminotransferase (ALT/SGPT) 87 U/L (16-63) Alkaline Phosphatase 97 U/L (46-116) Creatine Kinase 166 U/L (39-308) Creatine Kinase MB (Mass) < 0.5 ng/mL (0.0-3.6) Creatine Kinase MB Relative Index 0.3 % (0-4) Troponin I Quantitative < 0.017 ng/mL (0.000-0.055) Total Protein 7.2 g/dL (6.4-8.2) Albumin 3.1 g/dL (3.4-5.0) Albumin/Globulin Ratio 0.8 (1.0-1.7) Lipase 180 U/L (73-393) Urine Collection Type Unknown Urine Color Yellow Urine Clarity Clear Urine pH 6.0 Urine Specific [place] >=1.030 Urine Protein >=300 mg/dL (NEG-TRACE) Urine Glucose (UA) >=1000 mg/dL (NEG) Urine Ketones (Stick) Trace mg/dL (NEG) Urine Blood Moderate (NEG) Urine Nitrite Negative (NEG) Urine Bilirubin Negative (NEG) Urine Urobilinogen Dipstick 1.0 mg/dL (0.2 mg/dL) Urine Leukocyte Esterase Negative (NEG) Urine RBC 6-10 /HPF (0-2) Urine WBC 0 /HPF (0-4) Urine Squamous Epithelial Cells Occ /LPF Urine Amorphous Sediment Present /HPF Urine Bacteria 0 /HPF (0-FEW) Urine Mucus Slight /LPF Lactic Acid Level 1.1 mmol/L (0.4-2.0) Influenza Type A Antigen Negative (NEGATIVE) Influenza Type B Antigen Negative (NEGATIVE) Test 05/28/17 05:50 05/28/17 08:25 05/28/17 12:05 Sodium Level 134 mmol/L (136-145) Potassium Level 4.0 mmol/L (3.5-5.1) Chloride Level 101 mmol/L (98-107) Carbon Dioxide Level 23 mmol/L (21-32) Anion Gap 10 (6-14) Blood Urea Nitrogen 16 mg/dL (8-26) Creatinine 1.3 mg/dL (0.7-1.3) Estimated GFR (Cockcroft-Gault) 58.0 Glucose Level 246 mg/dL (70-99) Calcium Level 7.8 mg/dL (8.5-10.1) Magnesium Level 1.8 mg/dL (1.8-2.4) Troponin I Quantitative < 0.017 ng/mL (0.000-0.055) < 0.017 ng/mL (0.000-0.055) Triglycerides Level 130 mg/dL (0-150) Cholesterol Level 123 mg/dL (0-200) LDL Cholesterol, Calculated 75 mg/dL (0-100) VLDL Cholesterol, Calculated 26 mg/dL (0-40) Non-HDL Cholesterol Calculated 101 mg/dL (0-129) HDL Cholesterol 22 mg/dL (40-60) Cholesterol/HDL Ratio 5.6 Thyroid Stimulating Hormone (TSH) 0.731 uIU/mL (0.358-3.74) Lactic Acid Level 1.0 mmol/L (0.4-2.0) Allergies: Coded Allergies: tetanus and diphtheria toxoids (Verified Allergy, Unknown, Anaphylaxis, ) Medications: Current Medications Medications (Trade) Dose Ordered Sig/Zeyad Route PRN Reason Start Time Stop Time Status Last Admin Dose Admin Sodium Chloride 1,000 ml @ 720 mls/hr Q1H24M IV 05/27/17 21:30 05/28/17 01:30 DC 05/27/17 21:30 Fentanyl Citrate (Fentanyl 2ml Vial) 50 mcg PRN Q15MIN PRN IV PAIN GREATER THAN 3/10 05/27/17 21:30 05/28/17 11:26 DC 05/28/17 02:04 Ondansetron HCl (Zofran) 4 mg 1X ONCE IV 05/27/17 21:30 05/27/17 21:31 DC 05/27/17 21:33 Iohexol (Omnipaque 300 Mg/ml) 60 ml 1X ONCE IV 05/27/17 21:45 05/27/17 21:46 DC 05/27/17 22:40 Ondansetron HCl (Zofran) 4 mg PRN Q8HRS PRN IV NAUSEA/VOMITING 05/28/17 00:15 05/29/17 00:14 05/28/17 02:04 Fentanyl Citrate (Fentanyl 2ml Vial) 50 mcg PRN Q2HR PRN IV PAIN 05/28/17 00:15 05/29/17 00:14 05/28/17 06:49 Sodium Chloride 1,000 ml @ 75 mls/hr [id number] IV 05/28/17 00:15 05/29/17 00:14 05/28/17 02:05 Acetaminophen (Tylenol) 650 mg PRN Q4HRS PRN PO FEVER 05/28/17 00:15 05/29/17 00:14 05/28/17 08:47 Labetalol HCl (Normodyne) 20 mg PRN Q2HR PRN IVP HYPERTENSION, SEE COMMENTS 05/28/17 00:15 05/28/17 08:48 Hydralazine HCl (Apresoline Inj) 10 mg PRN Q4HRS PRN IVP ELEVATED BP, SEE COMMENTS 05/28/17 00:15 05/28/17 04:07 Amlodipine Besylate (Norvasc) 10 mg DAILY PO 05/28/17 10:00 05/28/17 10:40 Carvedilol (Coreg) 6.25 mg BIDWMEALS PO 05/28/17 10:00 05/28/17 10:41 Losartan Potassium (Cozaar) 50 mg DAILY PO 05/28/17 10:00 05/28/17 10:42 Imaging: Imaging: CXR Impression: There is a 14 mm nodular opacity in the left upper lobe. This finding appears stable dating back to 2007 and is favored to represent a benign granuloma. There is subsegmental atelectasis and/or scarring at the left lung base. CT A/P Findings: Limited images of lung bases are clear. Heart size mildly enlarged. No pleural or pericardial effusion. Liver, spleen, pancreas, adrenal glands are unremarkable. The gallbladder is surgically absent. There is a 7 mm calcific stone at the left kidney midpole. No calcific stone on the right. Mild nonspecific inflammatory changes in the bilateral perinephric fat. No apparent ureteral stone or hydronephrosis. Unopacified GI tract normal in caliber and contour. No focal bowel wall thickening. No inflammatory stranding in the mesentery. The appendix is normal in caliber. No ascites or lymphadenopathy. Images of pelvis show nondistended urinary bladder. Prostate gland normal in size. No free pelvic fluid or pelvic lymphadenopathy. Bone windows show no acute findings. Mild multilevel spondylosis. IMPRESSION: 1. No acute abnormality of abdomen or pelvis. Normal appendix. 2. Left-sided nephrolithiasis, nonobstructive. 3. Nonspecific inflammatory stranding the bilateral perinephric fat. Consider pyelonephritis. 4. Status post cholecystectomy. Echocardiogram <Conclusion> The left ventricular systolic function is normal and the ejection fraction is within normal range. The Ejection Fraction is 60-65%. There is normal LV segmental wall motion. There is mild to moderate concentric left ventricular hypertrophy. PE: GEN: NAD HEENT: Atraumatic, PERRL LUNGS: CTAB anteriorly HEART: RRR ABD: NABS, S/ND, RUQ pain under ribs EXTREMITY: No edema SKIN: No rashes, no jaundice NEURO/PSYCH: A & O 3 A/P: A/P: Myalgias, fever HTN -per cardiology RUQ pain - improved -associated w/ bodyaches Nephrolithiasis ADRIENNE, thrombocytopenia, mild transaminitis IDDM CRC screen -no previous colonoscopy FH pancreatic and stomach cancer -- ?viral syndrome Check H. pylori stool antigen (unable to order serology). GAIL WALSH May 28, 2017 14:24
[2017-05-28] MEDS ORDERED: IBUPROFEN 400 MG TABLET. PO PRN (15:45)
[2017-05-28] MEDS ORDERED: hydroCHLOROthiazide 25 MG TABLET PO SCH (16:00)
--- NOTE | 2017-05-28 16:13 | HP ---
ADMIT DATE: 05/28/2017 CHIEF COMPLAINT: Right upper quadrant pain. HISTORY OF PRESENT ILLNESS: The patient is a 51-year-old gentleman with history of diabetes mellitus, hypertension, cholecystectomy, who presented to the Emergency Room with right-sided upper quadrant pain, worse with deep breathing. He relates that it has been going on for a day or so. Never had any symptoms like this before. Denies any recent fevers or chills. Denies any upper respiratory symptoms or cough. Denies nausea, vomiting, reflux or other symptoms. He did have a gallbladder removed several years ago and has been doing fine since. He has been feeling ill for a couple of days just in general without any specific local findings other than his right-sided pain. In the Emergency Room, CT showed empty gallbladder fossa. Both kidneys had mild fat stranding, raising the possibility of pyelonephritis, urine, however, was completely negative. He did have a nonobstructing stone in the right renal pelvis. He was therefore admitted for further workup. PAST MEDICAL HISTORY: Diabetes mellitus, hypertension, hyperlipidemia, rheumatic fever, osteoarthritis. PAST SURGICAL HISTORY: He is status post cholecystectomy. FAMILY HISTORY: Positive for pancreatic cancer in father, stomach cancer in brother. SOCIAL HISTORY: Lives with his family, smokes cigars only when golfing. Denies significant alcohol use, typically only when golfing and no other drugs. ALLERGIES: TETANUS AND DIPHTHERIA TOXOIDS. MEDICATIONS: MAR reconciled with home medications. REVIEW OF SYSTEMS: Positive as per HPI. Rest of organ system review is negative. PHYSICAL EXAMINATION: VITAL SIGNS: From today show blood pressure of 147/83, heart rate of 96, respiratory rate at 18. He is afebrile. GENERAL: This is an obese 51-year-old , who is alert and oriented, in no acute distress. HEENT: Shows no scleral icterus. NECK: Supple, without any lymphadenopathy. LUNGS: Clear to auscultation bilaterally. HEART: Has regular rate and rhythm. ABDOMEN: Has positive bowel sounds, soft, moderate tenderness to palpation right after the rib margin, mainly on the right, some on the left as well. Mild pain with compression of ribs on the right. EXTREMITIES: Show no edema. SKIN: Warm, soft and dry without any rash. LABORATORY DATA: CBC with a WBC of 5.4, hemoglobin 13.9, platelets of 125, percent neutrophils of 78, lymphs 13. Chemistries with a BUN and creatinine of 16 and 1.3, essentially normal electrolytes, glucose at 246, calcium at 7.8, with an albumin of 3.1. ASSESSMENT AND PLAN: 1. The patient is a 51-year-old gentleman with right-sided rib pain. I doubt that this is related to anything going on his kidneys. The stone is currently not obstructing. There is no sign of passed stone or stone in the ureter. The pain is located too high. His liver function tests, however, are negative as well, and the gallbladder has been removed already. We will obtain consult from Gastroenterology. Hopefully, we can rule out any issues from that standpoint. On the differential also is a potential subclinical viral infection with pleuritis, costochondritis. This should be treated with nonsteroidal antiinflammatory drugs. We will await Gastroenterology input. 2. On his other medical issues including diabetes, we will continue home medications at insulin sliding scale. Value so far has been fairly high, but he did not get this morning meds, although he is n.p.o. at this time. We will obtain hemoglobin A1c as well. Blood pressures are borderline, but once again did not get his a.m. meds. We will restart those TR[place]. MARY DONALD MD DR: KALEIGH/nts JOB#: [id number] / [id number] BALWINDER
[2017-05-28] MEDS ORDERED: LISINOPRIL 40 MG TABLET. PO SCH (17:00)
[2017-05-28] MEDS: GLIMEPIRIDE 2 MG TABLET. PO SCH (17:07)
[2017-05-28] MEDS: ACETAMINOPHEN 500 MG TABLET PO PRN (17:11)
[2017-05-28] MEDS ORDERED: DEXTROSE 50% 25 GM / 50ML DISP.SYRIN. IV PRN (17:45)
[2017-05-28] MEDS: diphenhydrAMINE HCL 25 MG CAPSULE PO PRN (20:38)
[2017-05-29] MEDS: ACETAMINOPHEN 500 MG TABLET PO PRN ×3 (02:43→20:16)
[2017-05-29 02:47] VITALS: BP 143/53
[2017-05-29 05:13] LABS: BASO % 0 % (0-3); EOS % 0 % (0-3); HEMATOCRIT 35.3 % (39.0-53.0); HEMOGLOBIN 12.3 g/dL (13.0-17.5); LYMPH # 1.3 x10^3/uL (1.0-4.8); LYMPH % 15 % (24-48); MEAN CORPUSCULAR HEMOGLOBIN 29 pg (25-35); MEAN CORPUSCULAR HGB CONC 35 g/dL (31-37); MEAN CORPUSCULAR VOLUME 84 fL (79-100); MONO % 11 % (0-9); NEUT % 73 % (31-73); PLATELET COUNT 121 x10^3/uL (140-400); RED BLOOD COUNT 4.19 x10^6/uL (4.30-5.70); RED CELL DISTRIBUTION WIDTH 12.6 % (11.5-14.5); WHITE BLOOD COUNT 8.2 x10^3/uL (4.0-11.0)
[2017-05-29 05:31] LABS: CREATININE 1.5 mg/dL (0.7-1.3); GFR 49.1; POTASSIUM 3.9 mmol/L (3.5-5.1)
[2017-05-29 07:00] VITALS: BP 148/80
[2017-05-29] MEDS: CARVEDILOL 6.25 MG TABLET. PO SCH (08:00)
[2017-05-29] MEDS: ATENOLOL 50 MG TABLET. PO SCH (08:47)
[2017-05-29] MEDS: GLIMEPIRIDE 2 MG TABLET. PO SCH (08:47)
[2017-05-29] MEDS: LOSARTAN POTASSIUM 50 MG TABLET. PO SCH (08:48)
[2017-05-29] MEDS: TERBINAFINE 250 MG TABLET. PO SCH (08:48)
[2017-05-29] MEDS: JARDIANCE 25 MG PO SCH (08:49)
[2017-05-29] MEDS ORDERED: INSULIN DETEMIR 300 UNITS/3 ML INSULN.PEN. SQ SCH (09:00)
[2017-05-29] MEDS ORDERED: hydroCHLOROthiazide 25 MG TABLET PO SCH (09:00)
[2017-05-29] MEDS: INSULIN ASPART 300 UNITS/3 ML INSULN.PEN SQ SCH ×3 (09:04→17:00)
--- NOTE | 2017-05-29 09:46 | PDOC ---
Objective: Vital Signs: Vital Signs Date Time Temp Pulse Resp B/P (MAP) Pulse Ox O2 Delivery O2 Flow Rate FiO2 05/29/17 08:48 87 147/80 05/29/17 07:00 98.0 21 96 Room Air 98.0 Labs: Laboratory Tests Test 05/28/17 12:05 05/28/17 17:27 05/28/17 20:33 05/29/17 04:35 Troponin I Quantitative < 0.017 ng/mL Glucose (Fingerstick) 239 mg/dL 258 mg/dL White Blood Count 8.2 x10^3/uL Red Blood Count 4.19 x10^6/uL Hemoglobin 12.3 g/dL Hematocrit 35.3 % Mean Corpuscular Volume 84 fL Mean Corpuscular Hemoglobin 29 pg Mean Corpuscular Hemoglobin Concent 35 g/dL Red Cell Distribution Width 12.6 % Platelet Count 121 x10^3/uL Neutrophils (%) (Auto) 73 % Lymphocytes (%) (Auto) 15 % Monocytes (%) (Auto) 11 % Eosinophils (%) (Auto) 0 % Basophils (%) (Auto) 0 % Neutrophils # (Auto) 5.9 x10^3uL Lymphocytes # (Auto) 1.3 x10^3/uL Monocytes # (Auto) 0.9 x10^3/uL Eosinophils # (Auto) 0.0 x10^3/uL Basophils # (Auto) 0.0 x10^3/uL Sodium Level 134 mmol/L Potassium Level 3.9 mmol/L Chloride Level 100 mmol/L Carbon Dioxide Level 26 mmol/L Anion Gap 8 Blood Urea Nitrogen 22 mg/dL Creatinine 1.5 mg/dL Estimated GFR (Cockcroft-Gault) 49.1 Glucose Level 199 mg/dL Calcium Level 8.0 mg/dL Test 05/29/17 08:16 Glucose (Fingerstick) 192 mg/dL PE: GEN: NAD LUNGS: CTAB HEART: RRR ABD: S/ND/NT NEURO/PSYCH: A & O 3 A/P: HTN, IDDM RUQ pain - resolved -associated w/ viral prodrome CRC screen -no previous colonoscopy FH pancreatic and stomach cancer -H. pylori stool antigen ordered -- DC per primary. Needs outpt screening colonoscopy +/- EGD. GAIL WALSH May 29, 2017 09:46
[2017-05-29 10:18] VITALS: BP 129/72
--- NOTE | 2017-05-29 10:49 | PDOC ---
PROGRESS NOTES Chief Complaint Chief Complaint Atypical CP/ RUQ pain ASSESSMENT AND PLAN: 1. R rib pain: ruled out for ACS. echo pending. 2. appreciate Dr Cain's input as well; most consistent with viral pleuritis, n[place] with significant fevers O/N. flu serologies neg 2. accelerated HTN: resolved with restarting home meds 3. DM2: not optimally controlled on metformin, amaryl and levemir. increase insulin dose 4. HLD: lipid profile pending 5. Dispo: 24h w/o fevers required for D/C History of Present Illness History of Present Illness subjective fevers and rigors o/n, worsening gen malaise/myalgias/arthralgias Vitals Vitals Vital Signs Date Time Temp Pulse Resp B/P (MAP) Pulse Ox O2 Delivery O2 Flow Rate FiO2 05/29/17 10:18 98.4 77 20 129/72 (91) 93 Room Air 98.4 Physical Exam General: Alert, Oriented X3, Cooperative, No acute distress Heart: Regular rate Lungs: Clear Abdomen: Soft, No tenderness Extremities: No cyanosis, No edema Skin: No breakdown, No significant lesion Labs LABS Laboratory Tests Test 05/28/17 12:05 05/28/17 17:27 05/28/17 20:33 05/29/17 04:35 Troponin I Quantitative < 0.017 ng/mL (0.000-0.055) Glucose (Fingerstick) 239 mg/dL (70-99) 258 mg/dL (70-99) White Blood Count 8.2 x10^3/uL (4.0-11.0) Red Blood Count 4.19 x10^6/uL (4.30-5.70) Hemoglobin 12.3 g/dL (13.0-17.5) Hematocrit 35.3 % (39.0-53.0) Mean Corpuscular Volume 84 fL (79-100) Mean Corpuscular Hemoglobin 29 pg (25-35) Mean Corpuscular Hemoglobin Concent 35 g/dL (31-37) Red Cell Distribution Width 12.6 % (11.5-14.5) Platelet Count 121 x10^3/uL (140-400) Neutrophils (%) (Auto) 73 % (31-73) Lymphocytes (%) (Auto) 15 % (24-48) Monocytes (%) (Auto) 11 % (0-9) Eosinophils (%) (Auto) 0 % (0-3) Basophils (%) (Auto) 0 % (0-3) Neutrophils # (Auto) 5.9 x10^3uL (1.8-7.7) Lymphocytes # (Auto) 1.3 x10^3/uL (1.0-4.8) Monocytes # (Auto) 0.9 x10^3/uL (0.0-1.1) Eosinophils # (Auto) 0.0 x10^3/uL (0.0-0.7) Basophils # (Auto) 0.0 x10^3/uL (0.0-0.2) Sodium Level 134 mmol/L (136-145) Potassium Level 3.9 mmol/L (3.5-5.1) Chloride Level 100 mmol/L (98-107) Carbon Dioxide Level 26 mmol/L (21-32) Anion Gap 8 (6-14) Blood Urea Nitrogen 22 mg/dL (8-26) Creatinine 1.5 mg/dL (0.7-1.3) Estimated GFR (Cockcroft-Gault) 49.1 Glucose Level 199 mg/dL (70-99) Calcium Level 8.0 mg/dL (8.5-10.1) Test 05/29/17 08:16 Glucose (Fingerstick) 192 mg/dL (70-99) MARY DONALD MD May 29, 2017 10:49
[2017-05-29 14:31] VITALS: BP 130/76
[2017-05-29 19:58] VITALS: BP 172/95
[2017-05-29] MEDS: hydrALAZINE 20 MG/ML VIAL. IVP PRN (20:16)
[2017-05-29] MEDS: diphenhydrAMINE HCL 25 MG CAPSULE PO PRN (20:16)
[2017-05-29 22:54] VITALS: BP 163/75
[2017-05-30 03:55] VITALS: BP 149/74
[2017-05-30 07:25] VITALS: BP 151/81
[2017-05-30] MEDS ORDERED: metFORMIN XR 500 MG TAB.ER.24H PO SCH (07:30)
[2017-05-30] MEDS: INSULIN ASPART 300 UNITS/3 ML INSULN.PEN SQ SCH ×2 (08:00→12:00)
[2017-05-30] MEDS: GLIMEPIRIDE 2 MG TABLET. PO SCH (08:54)
[2017-05-30] MEDS: TERBINAFINE 250 MG TABLET. PO SCH (08:54)
[2017-05-30] MEDS: ATENOLOL 50 MG TABLET. PO SCH (08:55)
[2017-05-30] MEDS: LOSARTAN POTASSIUM 50 MG TABLET. PO SCH (08:55)
[2017-05-30] MEDS: JARDIANCE 25 MG PO SCH (08:55)
[2017-05-30] MEDS ORDERED: INSULIN DETEMIR 300 UNITS/3 ML INSULN.PEN. SQ SCH (09:00)
[2017-05-30 10:12] VITALS: BP 155/79
--- NOTE | 2017-05-30 11:11 | PDOC ---
Objective: Objective: D/w RN - DC held for fever. No GI complaints - had a loose-sharita stool yesterday, H. pylori specimen sent. Tmax 100.9 Vital Signs: Vital Signs Date Time Temp Pulse Resp B/P (MAP) Pulse Ox O2 Delivery O2 Flow Rate FiO2 05/30/17 10:12 98.5 67 19 155/79 (104) 95 Room Air 98.5 Labs: Laboratory Tests Test 05/29/17 11:27 05/29/17 16:35 05/29/17 22:42 05/30/17 07:26 Glucose (Fingerstick) 240 mg/dL (70-99) 111 mg/dL (70-99) 97 mg/dL (70-99) 97 mg/dL (70-99) PE: GEN: NAD NEURO/PSYCH: sleeping, not awakened A/P: Fever RUQ pain - resolved -associated w/ viral prodrome -- DC per primary. Plan for outpt screening colonoscopy +/- EGD, also follow-up re: H. pylori test. GAIL WALSH May 30, 2017 11:11
[2017-05-30 14:23] VITALS: BP 141/82
[2017-05-30] MEDS ORDERED: INSU100I32 SQ (14:42)
[2017-05-30] MEDS ORDERED: LOSA100T2 PO (15:10)
[2017-05-30] MEDS ORDERED: ATEN50TA PO (15:12)
--- NOTE | 2017-05-31 23:22 | DS ---
DATE OF DISCHARGE: 05/30/2017 CHIEF COMPLAINT: Right-sided chest pain. HOSPITAL COURSE: The patient is a 51-year-old gentleman who presented with right-sided rib pain in the lung/abdominal area. He was admitted for chest pain rule out, which indeed was negative. Echo was within normal limits. Because of right upper quadrant involvement, Gastroenterology was involved as well. He was status post cholecystectomy and symptoms were most consistent with viral pleuritis. In the following night, the patient actually developed fever and overall generalized malaise and myalgias. Flu serologies were negative. Nevertheless, this was attributed to a viral syndrome. When he defervesced, he was discharged to home. PHYSICAL EXAMINATION: VITAL SIGNS: Show a blood pressure of 155/79, heart rate of 67, respiratory rate of 19. He is afebrile. GENERAL: This is an overweight 51-year-old gentleman, alert and oriented, in no acute distress. LUNGS: Clear. HEART: Regular rate and rhythm. ABDOMEN: Has positive bowel sounds, soft, nontender. EXTREMITIES: Show no edema. DISCHARGE DIAGNOSIS: Viral syndrome. DISCHARGE DISPOSITION: To home. DISCHARGE CONDITION: Improved. DISCHARGE MEDICATIONS: Please refer to MAR. DISCHARGE INSTRUCTIONS: The patient will follow up with PCP in 1-2 weeks. MARY DONALD MD DR: KALEIGH/nts JOB#: [id number] / [id number] AYSHA Varghese MD
== END 2017-05-30 17:30 | disposition home or self-care (01) | DRG 866 ==
LOC: ER 19:50 → 2 NORTH 23:46
PROVIDERS: ADMIT Internal Medicine Hematology & Oncology; ATTEND Internal Medicine Hematology & Oncology
DX: B34.9 Viral infection, unspecified (principal); R65.10 Systemic inflammatory response syndrome (SIRS) of non-infectious origin without acute organ dysfunction; I15.8 Other secondary hypertension; E11.65 Type 2 diabetes mellitus with hyperglycemia; D72.810 Lymphocytopenia; E78.5 Hyperlipidemia, unspecified; F17.210 Nicotine dependence, cigarettes, uncomplicated; F17.290 Nicotine dependence, other tobacco product, uncomplicated; I51.7 Cardiomegaly; N20.0 Calculus of kidney; Z85.028 Personal history of other malignant neoplasm of stomach; Z79.4 Long term (current) use of insulin; Z87.442 Personal history of urinary calculi; Z80.0 Family history of malignant neoplasm of digestive organs; Z90.49 Acquired absence of other specified parts of digestive tract; Z91.19 Patient's noncompliance with other medical treatment and regimen; Z88.7 Allergy status to serum and vaccine
CPT/HCPCS: 36415; 71010; 74177; 80048; 80053; 80061; 81001; 82553; 82962; 83605; 83690; 83735; 84443; 84484; 85025; 85610; 85730; 87040; 87338; 87804; 90686; 90732; 93005; 93306; 96374; J0360; J1815; J2405; J3010; J3490; J7030; Q0163; Q9967; 99285-25

== ENCOUNTER 2018-01-07 09:11 | Observation (INO) | payer BC ==
[2018-01-07 09:27] LABS: POC GLUCOSE 284 mg/dL (70-99)
[2018-01-07 09:40] LABS: ADD MAN DIFF? YES; BASO % 0 % (0-3); EOS % 0 % (0-3); HEMATOCRIT 41.2 % (39.0-53.0); HEMOGLOBIN 14.4 g/dL (13.0-17.5); LYMPH # 0.7 x10^3/uL (1.0-4.8); LYMPH % 7 % (24-48); MEAN CORPUSCULAR HEMOGLOBIN 30 pg (25-35); MEAN CORPUSCULAR HGB CONC 35 g/dL (31-37); MEAN CORPUSCULAR VOLUME 85 fL (79-100); MONO # 0.4 x10^3/uL (0.0-1.1); MONO % 3 % (0-9); NEUT # 9.5 x10^3uL (1.8-7.7); NEUT % 89 % (31-73); PLATELET COUNT 171 x10^3/uL (140-400); RED BLOOD COUNT 4.88 x10^6/uL (4.30-5.70); RED CELL DISTRIBUTION WIDTH 13.6 % (11.5-14.5); WHITE BLOOD COUNT 10.7 x10^3/uL (4.0-11.0)
[2018-01-07 09:47] LABS: ANION GAP 15 (6-14); BLOOD UREA NITROGEN 36 mg/dL (8-26); BUN/CREATININE RATIO 28 (6-20); CALCIUM 9.5 mg/dL (8.5-10.1); CARBON DIOXIDE 21 mmol/L (21-32); CHLORIDE 104 mmol/L (98-107); CREATININE 1.3 mg/dL (0.7-1.3); GFR 57.7; GLUCOSE 282 mg/dL (70-99); POTASSIUM 4.3 mmol/L (3.5-5.1); SODIUM 140 mmol/L (136-145)
[2018-01-07 09:53] LABS: PARTIAL THROMBOPLASTIN TIME 25 SEC (24-38); PROTHROMBIN TIME PATIENT 12.5 SEC (11.7-14.0)
[2018-01-07 09:54] LABS: ALBUMIN 3.7 g/dL (3.4-5.0); ALBUMIN/GLOBULIN RATIO 1.2 (1.0-1.7); ALK PHOS 108 U/L (46-116); ALT (SGPT) 41 U/L (16-63); AST (SGOT) 24 U/L (15-37); MAGNESIUM 2.3 mg/dL (1.8-2.4); TOTAL BILIRUBIN 0.4 mg/dL (0.2-1.0); TOTAL PROTEIN 6.9 g/dL (6.4-8.2)
[2018-01-07 09:56] LABS: TROPONINI < 0.017 ng/mL (0.000-0.055)
[2018-01-07] MEDS: ASPIRIN CHEWABLE 81 MG TABLET. PO (11:01)
[2018-01-07 11:25] LABS: BILIRUBIN,URINE NEGATIVE (NEG); CLARITY,URINE CLEAR; COLOR,URINE YELLOW; GLUCOSE,URINE >=1000 mg/dL (NEG); NITRITE,URINE NEGATIVE (NEG); PROTEIN,URINE 100 mg/dL (NEG-TRACE); UROBILINOGEN,URINE 0.2 mg/dL (0.2 mg/dL)
[2018-01-07 11:30] LABS: % BANDS 1 % (0-9); % LYMPHS 9 % (24-48); % MONOS 2 % (0-10); % SEGS 88 % (35-66)
[2018-01-07 11:31] LABS: PLT ESTIMATE ADEQUATE (ADEQUATE)
[2018-01-07 11:39] LABS: BACTERIA,URINE FEW /HPF (0-FEW); RBC,URINE 0 /HPF (0-2); SQUAMOUS EPITHELIAL CELL,UR OCC /LPF; WBC,URINE OCC /HPF (0-4)
[2018-01-07 11:49] LABS: POC GLUCOSE 267 mg/dL (70-99)
[2018-01-07] MEDS ORDERED: ACETAMINOPHEN 500 MG TABLET PO (13:15)
[2018-01-07] MEDS ORDERED: IBUPROFEN 400 MG TABLET. PO (13:15)
[2018-01-07] MEDS: INSULIN GLARGINE 300 UNITS/3 ML INSULN.PEN. SQ (15:17)
[2018-01-07] MEDS: LISINOPRIL 20 MG TABLET PO (15:23)
[2018-01-07] MEDS: amLODIPine BESYLATE 10 MG TABLET PO (15:24)
[2018-01-07] MEDS: GLIMEPIRIDE 2 MG TABLET. PO (15:24)
[2018-01-07] MEDS: hydroCHLOROthiazide 25 MG TABLET PO (15:24)
[2018-01-07] MEDS: ATENOLOL 50 MG TABLET. PO (15:24)
[2018-01-07] MEDS ORDERED: ENOXAPARIN 40 MG/0.4 ML SYRINGE. SQ (16:30)
[2018-01-07] MEDS ORDERED: ACETAMINOPHEN 325 MG TABLET. PO (16:30)
[2018-01-07] MEDS ORDERED: ASPIRIN 300 MG SUPP.RECT PR (16:30)
[2018-01-07] MEDS ORDERED: ACETAMINOPHEN 650 MG SUPP.RECT. PR (16:30)
[2018-01-07 16:52] LABS: POC GLUCOSE 239 mg/dL (70-99)
[2018-01-07] MEDS: ENOXAPARIN 40 MG/0.4 ML SYRINGE. SQ (18:24)
[2018-01-07] MEDS: IV NORMAL SALINE 1000ML BAG 1,000 ML IV (18:24)
[2018-01-07] MEDS: INSULIN LISPRO 300 UNITS/3 ML INSULN.PEN. SQ ×2 (18:31→21:29)
[2018-01-07 21:15] LABS: POC GLUCOSE 228 mg/dL (70-99)
[2018-01-07] MEDS: ATORVASTATIN CALCIUM 40 MG TABLET. PO (21:28)
[2018-01-08] MEDS: IV NORMAL SALINE 1000ML BAG 1,000 ML IV (03:31)
[2018-01-08 04:37] LABS: ADD MAN DIFF? NO
[2018-01-08 04:46] LABS: BASO % 0 % (0-3); EOS # 0.3 x10^3/uL (0.0-0.7); EOS % 3 % (0-3); HEMATOCRIT 38.9 % (39.0-53.0); HEMOGLOBIN 13.6 g/dL (13.0-17.5); LYMPH # 3.1 x10^3/uL (1.0-4.8); LYMPH % 31 % (24-48); MEAN CORPUSCULAR HEMOGLOBIN 30 pg (25-35); MEAN CORPUSCULAR HGB CONC 35 g/dL (31-37); MEAN CORPUSCULAR VOLUME 85 fL (79-100); MONO # 0.7 x10^3/uL (0.0-1.1); MONO % 7 % (0-9); NEUT # 5.8 x10^3uL (1.8-7.7); NEUT % 59 % (31-73); PLATELET COUNT 159 x10^3/uL (140-400); RED BLOOD COUNT 4.56 x10^6/uL (4.30-5.70); RED CELL DISTRIBUTION WIDTH 13.7 % (11.5-14.5); WHITE BLOOD COUNT 9.9 x10^3/uL (4.0-11.0)
[2018-01-08 05:15] LABS: ANION GAP 10 (6-14); BLOOD UREA NITROGEN 32 mg/dL (8-26); CALCIUM 9.2 mg/dL (8.5-10.1); CARBON DIOXIDE 25 mmol/L (21-32); CHLORIDE 106 mmol/L (98-107); CHOLESTEROL 141 mg/dL (0-200); CREATININE 1.2 mg/dL (0.7-1.3); GFR 63.3; GLUCOSE 90 mg/dL (70-99); HDLC 28 mg/dL (40-60); LDLC 54 mg/dL (0-100); NON-HDL CHOLESTEROL 113 mg/dL (0-129); POTASSIUM 3.1 mmol/L (3.5-5.1); SODIUM 141 mmol/L (136-145); TRIGLYCERIDES 297 mg/dL (0-150); VLDLC 59 mg/dL (0-40)
[2018-01-08] MEDS: INSULIN LISPRO 300 UNITS/3 ML INSULN.PEN. SQ ×2 (07:30→12:16)
[2018-01-08 07:34] LABS: POC GLUCOSE 119 mg/dL (70-99)
[2018-01-08] MEDS: ASPIRIN ENTERIC COATED 325 MG TABLET.DR. PO (08:12)
[2018-01-08] MEDS: LISINOPRIL 20 MG TABLET PO (08:13)
[2018-01-08] MEDS: amLODIPine BESYLATE 10 MG TABLET PO (08:13)
[2018-01-08] MEDS: GLIMEPIRIDE 2 MG TABLET. PO (08:14)
[2018-01-08] MEDS: ATENOLOL 50 MG TABLET. PO (08:14)
[2018-01-08] MEDS: hydroCHLOROthiazide 25 MG TABLET PO (08:14)
[2018-01-08] MEDS: INSULIN GLARGINE 300 UNITS/3 ML INSULN.PEN. SQ (08:15)
[2018-01-08] MEDS: NON FORMULARY ITEM (Empagliflozin (Jardiance) 25 MG) PO (08:16)
[2018-01-08] MEDS: hydrALAZINE 25 MG TABLET PO (11:08)
[2018-01-08] MEDS: CEPHALEXIN 250 MG CAPSULE. PO (11:08)
[2018-01-08] MEDS: AZITHROMYCIN 250 MG TABLET. PO (11:08)
[2018-01-08 11:38] LABS: POC GLUCOSE 173 mg/dL (70-99)
[2018-01-08] MEDS: ALBUTEROL SULFATE 2.5 MG/3 ML NEBU. NEB (13:18)
[2018-01-08] MEDS ORDERED: LACTOBACILLUS RHAMNOSUS GG 1 CAPSULE. PO (21:00)
== END 2018-01-08 14:26 | disposition home or self-care (01) ==
LOC: ER 09:11 → 6 SOUTH 10:20
PROVIDERS: Family Medicine
DX: I63.9 Cerebral infarction, unspecified (principal); E11.9 Type 2 diabetes mellitus without complications; I10 Essential (primary) hypertension; G89.0 Central pain syndrome; J45.909 Unspecified asthma, uncomplicated; E78.1 Pure hyperglyceridemia; E78.5 Hyperlipidemia, unspecified; F17.290 Nicotine dependence, other tobacco product, uncomplicated; Z83.3 Family history of diabetes mellitus
CPT/HCPCS: 36415; 70450; 70551; 71045; 80048; 80053; 80061; 81001; 82962; 83735; 84484; 85007; 85025; 85610; 85730; 92610-GN; 93005; 93306; 93880; 96360; 96361; 96372; 97161-GP; 97165-GO; 99285; G0378; G0379; J1650; J1815; J7030; J7613; Q0144

== ENCOUNTER → 2020-12-28 | Outpatient (CLI) | payer BC ==
[2020-12-26 11:00] VITALS: BP 152/70
[~2020-12-28] MED LIST: ACET500T68 PO; AMLO-187 PO; AMLO1CAP54 PO; ASPI325T11 PO; ATEN50TA PO; ATOR40TA59 PO; BISO1TAB4 PO; CEPH500T PO; DIPH50CA PO; EMPA25TA PO; FURO-68 PO; GLIM4TAB8 PO; HYDR-2145 PO; HYDR-2868 PO; HYDR100T24 PO; IBUP-1027 PO; INSU100I32 SQ; LISI1TAB37 PO; LOSA100T2 PO; METF100010 PO; REGADENOSON 0.4 MG/5 ML DISP.SYRIN. IV ONE; TERB250T84 PO
--- NOTE | 2020-12-28 18:38 | RAD ---
MR#: [id number] Date of Study: 12/28/2020 Ordering Physician: DAVID OSBORNE, Referring Physician: ETIENNE JIMENEZ Tech: RT Jasbir (R) (N) APPROVED REPORT Test Type: Pharmacological Stress Nurse/Tech: Vijay Henry RN Test Indications: Chronic Heart Failure, SOB Cardiac History: "hole in heart" dx as a child, HTN, See EMR. Medications: See EMR. Medical History: DM, See EMR. Resting ECG: SR Resting Heart Rate: 82 bpm Resting Blood Pressure: 161/77mmHg Pretest Chest Pain: No chest pain Nurse/Tech Notes Lungs CTA, heart tones regular. Pt attempted a treadmill, though was unable to reach target heart ra te; and needed to stop due to "tired legs" and "no energy to keep going". Pt helped to chair. And jose wanda started. Consent: The procedure was explained to the patient in lay terms. Informed consent was witnessed. Mehdi eout was entered into [employer]. History and Stress Test performed by RT Funmilayo (R) (N) Pharm. Details Pharmacologic stress testing was performed using 0.4mg per 5ml of regadenoson given intravenously ove r 7-10 seconds. Stress Symptoms Dyspnea POST EXERCISE Reason for Termination: Infusion complete Max HR: 85 bpm Max Blood Pressure: 131/57mmHg Blood Pressure response to exercise: Normal blood pressure response during stress. Heart Rate response to exercise: WNL Chest Pain: No. Arrhythmia: No. ST Change: No. INTERPRETATION Stress EKG Conclusion: No evidence of stress induced EKG changes. Imaging Protocol IMAGE PROTOCOL: Rest Tc-99m/stress Tc-99m 1 day Rest: Stress: Viability: Radiopharm.Tc99m [id number] Sestamibi Dose10.5mCi 32.3mCi Duration 13min. 13min. Img Date 12/28/2020 12/28/2020 Inj-Img [id number]. 60min. Rest Admin Site:IV - Left AntecubitalAdministrator:NABILA Tidwell, ARRT (R)(N) Stress Admin Site: IV - Left AntecubitalAdministrator: Paul Dotson, RT (R)(N) STRESS DATA End Diast. Vol.150.0mlLVEDV index BSA72.0ml End Syst. Vol.57.0mlLVESV index BSA27.0ml Myocardial Rdqh176.0gEject. Tbshmjmg03.0% Stress Scores Regional WT2.00Summed WT16.00 Regional WM0.00Summed WM2.00 The rest and stress images show normal perfusion, normal contraction and thickening. LV Perf. Quant 17 Seg. SSS0.00 17 Seg. SRS2.00 17 Seg. SDS0.00 Stress Defect Extent (% LAD)0.00Rest Defect Extent (% LAD)0.00Rev. Defect Extent (% LAD)0.00 Stress Defect Extent (% LCX) 0.00Rest Defect Extent (% LCX)16.30Rev. Defect Extent (% LCX)0.00 Stress Defect Extent (% RCA)0.00Rest Defect Extent (% RCA)0.00Rev. Defect Extent (% RCA)0.00 Stress Defect Extent (% TRISTAN)0.00Rest Defect Extent (% TRISTAN)3.50Rev. Defect Extent (% TRISTAN)0.00 Other Information Quality:Good Risk Assessment: Low Risk Conclusion 1. No evidence of EKG changes with stress testing. 2. Normal perfusion at stress/rest. 3. Low risk study. 4. EF > 60%. Signed by : Gurinder Ohara, Electronically Approved : 12/28/2020 18:37:55
== END ==
LOC: NM 07:58
PROVIDERS: ATTEND Internal Medicine Cardiovascular Disease
DX: I50.9 Heart failure, unspecified (principal); R06.02 Shortness of breath
CPT/HCPCS: 78452; 93017; A9500; J2785

== ENCOUNTER → 2020-12-28 | Outpatient (CLI) | payer BC ==
[2020-12-26 11:00] VITALS: BP 152/70
[~2020-12-28] MED LIST changes: -REGADENOSON 0.4 MG/5 ML DISP.SYRIN. IV ONE
--- NOTE | 2020-12-28 09:16 | RAD ---
EXAM: Bilateral lower extremity venous Doppler sonogram. HISTORY: Pain and swelling. TECHNIQUE: Terry scale and color Doppler sonographic evaluation of the bilateral lower extremity veins with spectral waveform analysis was performed. FINDINGS: There is normal color flow, normal compressibility and there are normal spectral waveforms in the common femoral, superficial femoral, popliteal, posterior tibial and greater saphenous veins. IMPRESSION: No Doppler evidence of lower extremity deep venous thrombosis. Electronically signed by: Heather Stevens MD (12/28/2020 9:14 AM) [id number]
== END ==
LOC: US 07:56
PROVIDERS: ATTEND Family Medicine
DX: M79.89 Other specified soft tissue disorders (principal); I50.9 Heart failure, unspecified
CPT/HCPCS: 93970

== ENCOUNTER 2021-11-28 13:20 | Inpatient (IN) | payer BC ==
[~2021-11-28] VITALS: Ht 170.2 cm; Wt 94.7 kg
[~2021-11-28 13:20] MED LIST changes: +AMLO-54 PO; -AMLO1CAP54 PO; -BISO1TAB4 PO; +BISO1TAB83 PO; -DIPH50CA PO; +DIPH50CA16 PO; -EMPA25TA PO; +EMPA25TA3 PO; +TERB250T72 PO; -TERB250T84 PO
--- NOTE | 2021-11-28 14:33 | PHYS DOC ---
Past Medical History Past Medical History: CHF, CVA, Diabetes-Type II, Hypertension, Other Additional Past Medical Histor: rheumatic fever, COVID-19, STROKE 3 YEARS AGO (KAMILA GREENBERG GENERAL II FARMWORKER) Past Surgical History: No Surgical History Additional Past Surgical Histo: septal surgery (KAMILA GREENBERG GENERAL II FARMWORKER) Smoking Status: Current Some Day Smoker Alcohol Use: Rarely Drug Use: None (KAMILA GREENBERG APRN) General Adult EDM: Chief Complaint: SHORTNESS OF BREATH HPI: HPI: Patient is a 56 year old male with history of CHF, diabetes type 2, hypertension, CVA with no significant deficits, presenting to the ED today comp laining of shortness of breath and bilateral lower extremity swelling, patient states symptoms have been going on for 2 weeks. He states he is currently on furosemide with no improvement. Denies any chest pain. Denies any lower extremity pain. (KAMILA GREENBERG APRN) Review of Systems: Review of Systems: Constitutional: Denies fever or chills. [] Eyes: Denies change in visual acuity. [] HENT: Denies nasal congestion or sore throat. [] Respiratory: Reports shortness of breath Cardiovascular: Denies chest pain or edema. [] GI: Denies abdominal pain, nausea, vomiting, bloody stools or diarrhea. [] : Denies dysuria. [] Musculoskeletal: Reports bilateral lower extremity swelling. Denies back pain Integument: Denies rash. [] Neurologic: Denies headache, focal weakness or sensory changes. [] [] Psychiatric: Denies depression or anxiety. [] (KAMILA GREENBERG GENERAL II FARMWORKER) Heart Score: C/O Chest Pain: N/A Risk Factors: Risk Factors: DM, Current or recent (<one month) smoker, HTN, HLP, family history of CAD, obesity. Risk Scores: Score 0 - 3: 2.5% MACE over next 6 weeks - Discharge Home Score 4 - 6: 20.3% MACE over next 6 weeks - Admit for Clinical Observation Score 7 - 10: 72.7% MACE over next 6 weeks - Early Invasive Strategies (KAMILA GREENBERG GENERAL II FARMWORKER) Allergies: Allergies: Allergies Coded Allergies Type Severity Reaction Last Updated Verified tetanus and diphtheria toxoids Allergy Severe Anaphylaxis 11/28/21 Yes (KAMILA GREENBERG APRN) Physical Exam: PE: Constitutional: Well developed, well nourished, no acute distress, non-toxic appearance. [] HENT: Normocephalic, atraumatic, bilateral external ears normal, oropharynx moist, no oral exudates, nose normal. [] Eyes: PERRLA, EOMI, conjunctiva normal, no discharge. [] Neck: Normal range of motion, no tenderness, supple, no stridor. [] Cardiovascular:Heart rate regular rhythm, no murmur [] Lungs & Thorax: Crackles to posterior lung bases Abdomen: Bowel sounds normal, soft, no tenderness, no masses, no pulsatile masses. [] Skin: Warm, dry, no erythema, no rash. [] Back: No tenderness, no CVA tenderness. [] Extremities: No tenderness, no cyanosis, no clubbing, ROM intact, +3 pitting edema to bilateral lower extremities, negative Homans' sign bilaterally Neurologic: Alert and oriented X 3, normal motor function, normal sensory function, no focal deficits noted. [] Psychologic: Affect normal, judgement normal, mood normal. [] (KAMILA GREENBERG GENERAL II FARMWORKER) Current Patient Data: Vital Signs: Vital Signs Date Time Temp Pulse Resp B/P (MAP) Pulse Ox O2 Delivery O2 Flow Rate FiO2 11/28/21 13:28 97.8 62 26 168/72 (104) 97 97.8 (KAMILA GREENBERG GENERAL II FARMWORKER) EKG: EK interpreted by Dr. Boyd sinus rhythm heart rate 59 no STEMI [] [address] Boyd sinus rhythm heart rate 59 no STEMI [] (KAMILA GREENBERG GENERAL II FARMWORKER) Radiology/Procedures: Radiology/Procedures: []PROCEDURE: PORTABLE CHEST 1V XR CHEST 1V 11/28/2021 2:03 PM INDICATION: Shortness of air COMPARISON: 12/24/2020 TECHNIQUE: Portable frontal view of the chest is provided. FINDINGS: The cardiomediastinal silhouette is similar in appearance. Moderate left pleural effusion with adjacent compressive atelectasis versus infiltrate. Probably calcified nodular opacity is identified within the left upper lobe, stable measuring 1.3 cm. There are no significant pleural effusions. There is no pulmonary vascular congestion. No pneumothorax. No suspicious osseous abnormality. IMPRESSION: Increase in small to moderate left pleural effusion with adjacent compressive atelectasis versus infiltrate. Electronically signed by: Jyoti Lilly MD (11/28/2021 2:43 PM) [id number] DICTATED and SIGNED BY: JYOTI LILLY MD DATE: 11/28/21 1443 (KAMILA GREENBERG APRN) Course & Med Decision Making: Course & Med Decision Making Pertinent Labs and Imaging studies reviewed. (See chart for details) This a 56-year-old male patient with history of CHF presenting today complaining of bilateral lower extremity swelling and shortness of breath for 3 weeks. Vitals on arrival to the ED temperature was 97.8, heart rate 62, respiration 26 but went down to 20 on room air. O2 sats 97%, blood pressure 168/72. Chest x-ray interpreted by radiologist was noted for increase in small to moderate left pleural effusion with adjacent compressive atelectasis versus infiltrate. CBC with a normal WBC, hemoglobin 9.5 with hematocrit of 28.2, BUN 54, creatinine 4.4, patient states he has been following up with a cable wirer but does not remember the previous creatinine, he states he was told his kidney performances are at 15% potassium is normal BNP [address] Johnson she requested we give patient furosemide 80 mg IV Spoke to Dr. Billy who accepted patient for admission (KAMILA GREENBERG APRN) Dragon Disclaimer: Dragon Disclaimer: This electronic medical record was generated, in whole or in part, using a voice recognition dictation system. (KAMILA GREENBERG APRN) Departure Departure Impression: Primary Impression: CHF exacerbation Qualified Codes: I50.9 - Heart failure, unspecified Additional Impressions: Acute on chronic renal failure Qualified Codes: N17.9 - Acute kidney failure, unspecified; N18.9 - Chronic kidney disease, unspecified Shortness of breath Disposition: ADMITTED INPATIENT Condition: STABLE Referrals: AYSHA LALA MD (PCP) Attending Signature I have participated in the care of this patient and I have reviewed and agree with all pertinent clinical information above including history, exam, and recommendations. (TYE BOYD DO) KAMILA GREENBERG APRN Nov 28, 2021 14:33 TYE BOYD DO Nov 30, 2021 14:01
[2021-11-28 14:40] LABS: BASO # 0.1 x10^3/uL (0.0-0.2); BASO % 1 % (0-3); EOS # 0.2 x10^3/uL (0.0-0.7); EOS % 3 % (0-3); HEMATOCRIT 28.2 % (39.0-53.0); HEMOGLOBIN 9.5 g/dL (13.0-17.5); LYMPH # 0.6 x10^3/uL (1.0-4.8); LYMPH % 9 % (24-48); MEAN CORPUSCULAR HEMOGLOBIN 28 pg (25-35); MEAN CORPUSCULAR HGB CONC 34 g/dL (31-37); MEAN CORPUSCULAR VOLUME 84 fL (79-100); MONO # 0.6 x10^3/uL (0.0-1.1); MONO % 8 % (0-9); NEUT # 5.8 x10^3/uL (1.8-7.7); NEUT % 80 % (31-73); PLATELET COUNT 149 x10^3/uL (140-400); RED BLOOD COUNT 3.37 x10^6/uL (4.30-5.70); RED CELL DISTRIBUTION WIDTH 16.3 % (11.5-14.5); WHITE BLOOD COUNT 7.3 x10^3/uL (4.0-11.0)
--- NOTE | 2021-11-28 14:46 | RAD ---
XR CHEST 1V 11/28/2021 2:03 PM INDICATION: Shortness of air COMPARISON: 12/24/2020 TECHNIQUE: Portable frontal view of the chest is provided. FINDINGS: The cardiomediastinal silhouette is similar in appearance. Moderate left pleural effusion with adjace nt compressive atelectasis versus infiltrate. Probably calcified nodular opacity is identified within the left upper lobe, stable measuring 1.3 cm. There are no significant pleural effusions. There is no pulmonary vascular congestion. No pneumothora x. No suspicious osseous abnormality. IMPRESSION: Increase in small to moderate left pleural effusion with adjacent compressive atelectasis versus infi ltrate. Electronically signed by: Gabbi Manrique MD (11/28/2021 2:43 PM) [id number]
[2021-11-28 15:10] LABS: CALCIUM 8.3 mg/dL (8.5-10.1); CREATININE 4.4 mg/dL (0.7-1.3); GFR 13.9; POTASSIUM 3.8 mmol/L (3.5-5.1)
--- NOTE | 2021-11-28 15:13 | EKG ---
[facility] [address] [place] [address] Test Date: 2021-11-28 Test Time: 14:13:47 Pat Name: GAGAN ZARATE Department: Room: Gender: M Making Line Worker: : 1965 Requested By: KAMILA GREENBERG Order Number: [id number] Reading MD: Juan Carlos Spivey Measurements Intervals [place] Rate: 59 P: 27 [place]: 166 QRS: 3 QRSD: 100 T: 33 QT: 416 QTc: 416 Interpretive Statements SINUS RHYTHM LOW LIMB LEAD VOLTAGE Electronically Signed On 11-29-2021 16:28:18 CDT by Juan Carlos Spivey
[2021-11-28] MEDS ORDERED: FUROSEMIDE 40 MG/4 ML VIAL. IVP ONE (17:30)
--- NOTE | 2021-11-28 18:00 | PDOC1 ---
History and Physical Date of Admission Date of Admission DATE: 11/28/21 TIME: 17:54 Identification/Chief Complaint Chief Complaint Shortness of breath Source Source: Patient History of Present Illness History of Present Illness Patient is a 56-year-old male with past medical history CHF, presents to the ED with complaints of worsening shortness of breath over the past 2 weeks. He notes associated bilateral feet swelling. States he has taken his home Lasix with improvement. He was told recently by his machine tech only take his Lasix as needed. States last time he took Lasix was one day ago. Denies any chest pa in. Labs on admission showed hemoglobin 9.5, hematocrit 28.2, BUN 54, creatinine 4.4, CBG 188, proBNP 8324. Chest x-ray on admission showed increase in small to moderate left pleural effusion with adjacent compressive atelectasis versus infiltrate. Will admit patient for further medical management. Past Medical History Cardiovascular: HTN Pulmonary: No pertinent hx CENTRAL NERVOUS SYSTEM: Other GI: No pertinent hx, GERD Heme/Onc: No pertinent hx Hepatobiliary: No pertinent hx Psych: No pertinent hx Musculoskeletal: Osteoarthritis Rheumatologic: No pertinent hx Infectious disease: Other Renal/: Chronic renal insuff, Other Endocrine: Diabetes Past Surgical History Past Surgical History: Cholecystectomy Family History Family History: Coronary Artery Disease, High Cholestrol, Hypertension Social History Smoke: <1 pack per day ALCOHOL: none Drugs: None Current Medications Current Medications Current Medications Furosemide (Lasix) 80 mg 1X ONCE IVP ; Start 11/28/21 at 17:30; Stop 11/28/21 at 17:31; Status DC Active Scripts Active Lasix (Furosemide) 40 Mg Tablet 40 Mg PO BID Amlodipine Besylate 10 Mg Tablet 10 Mg PO DAILY 30 Days Atenolol 50 Mg Tablet 50 Mg PO DAILY Reported Hydralazine Hcl 100 Mg Tablet 1 Tab PO BID Lisinopril-Hctz 20-12.5 Mg Tab (Lisinopril/Hydrochlorothiazide) 1 Each Tablet 2 Tab PO DAILY Glimepiride 4 Mg Tablet 1 Tab PO DAILY Allergies Allergies: Coded Allergies: tetanus and diphtheria toxoids (Verified Allergy, Severe, Anaphylaxis, 11/28/21) ROS Review of System GENERAL: No history of weight change, weakness or fevers. SKIN: No bruising, hair changes or rashes. EYES: No blurred, double or loss of vision. NOSE AND THROAT: No history of nosebleeds, hoarseness or sore throat. HEART: Denies chest pain, denies palpitations. LUNGS: Dyspnea on exertion. Denies cough, hemoptysis or wheezing. GASTROINTESTINAL: Denies nausea, vomiting, abdominal pain. GENITOURINARY: Denies dysuria, frequency, urgency, hematuria. NEUROLOGIC: Denies history of numbness, tingling, tremor or weakness. PSYCHIATRIC: Denies anxiety, denies depression. ENDOCRINE: No history of heat or cold intolerance, polyuria or polydipsia. EXTREMITIES: Bilateral leg swelling. Denies muscle weakness, joint pain, pain on walking or stiffness. Physical Exam Physical Exam General: Alert, Oriented X3, Cooperative, mild distress HEENT: Atraumatic, EOMI Lungs: Faint bibasilar Rales, normal air movement Heart: RRR, no rubs Cardiovascular: S1, S2, S3 Abdomen: Normal bowel sounds, Soft, No tenderness Extremities: 2+ bilateral leg edema Skin: No breakdown, No significant lesion Neuro: Normal speech, Sensation intact Psych/Mental Status: Mental status NL, Mood NL Vitals Vitals Vital Signs Date Time Temp Pulse Resp B/P (MAP) Pulse Ox O2 Delivery O2 Flow Rate FiO2 11/28/21 13:28 97.8 62 26 168/72 (104) 97 97.8 Labs Labs Laboratory Tests Test 11/28/21 14:20 White Blood Count 7.3 x10^3/uL (4.0-11.0) Red Blood Count 3.37 x10^6/uL (4.30-5.70) Hemoglobin 9.5 g/dL (13.0-17.5) Hematocrit 28.2 % (39.0-53.0) Mean Corpuscular Volume 84 fL (79-100) Mean Corpuscular Hemoglobin 28 pg (25-35) Mean Corpuscular Hemoglobin Concent 34 g/dL (31-37) Red Cell Distribution Width 16.3 % (11.5-14.5) Platelet Count 149 x10^3/uL (140-400) Neutrophils (%) (Auto) 80 % (31-73) Lymphocytes (%) (Auto) 9 % (24-48) Monocytes (%) (Auto) 8 % (0-9) Eosinophils (%) (Auto) 3 % (0-3) Basophils (%) (Auto) 1 % (0-3) Neutrophils # (Auto) 5.8 x10^3/uL (1.8-7.7) Lymphocytes # (Auto) 0.6 x10^3/uL (1.0-4.8) Monocytes # (Auto) 0.6 x10^3/uL (0.0-1.1) Eosinophils # (Auto) 0.2 x10^3/uL (0.0-0.7) Basophils # (Auto) 0.1 x10^3/uL (0.0-0.2) Sodium Level 143 mmol/L (136-145) Potassium Level 3.8 mmol/L (3.5-5.1) Chloride Level 109 mmol/L (98-107) Carbon Dioxide Level 23 mmol/L (21-32) Anion Gap 11 (6-14) Blood Urea Nitrogen 54 mg/dL (8-26) Creatinine 4.4 mg/dL (0.7-1.3) Estimated GFR (Cockcroft-Gault) 13.9 BUN/Creatinine Ratio 12 (6-20) Glucose Level 183 mg/dL (70-99) Calcium Level 8.3 mg/dL (8.5-10.1) Troponin I High Sensitivity 23 ng/L (4-75) LC-Wpf-F-Type Natriuretic Peptide 8324 pg/mL (0-124) Laboratory Tests Test 11/28/21 14:20 White Blood Count 7.3 x10^3/uL (4.0-11.0) Red Blood Count 3.37 x10^6/uL (4.30-5.70) Hemoglobin 9.5 g/dL (13.0-17.5) Hematocrit 28.2 % (39.0-53.0) Mean Corpuscular Volume 84 fL (79-100) Mean Corpuscular Hemoglobin 28 pg (25-35) Mean Corpuscular Hemoglobin Concent 34 g/dL (31-37) Red Cell Distribution Width 16.3 % (11.5-14.5) Platelet Count 149 x10^3/uL (140-400) Neutrophils (%) (Auto) 80 % (31-73) Lymphocytes (%) (Auto) 9 % (24-48) Monocytes (%) (Auto) 8 % (0-9) Eosinophils (%) (Auto) 3 % (0-3) Basophils (%) (Auto) 1 % (0-3) Neutrophils # (Auto) 5.8 x10^3/uL (1.8-7.7) Lymphocytes # (Auto) 0.6 x10^3/uL (1.0-4.8) Monocytes # (Auto) 0.6 x10^3/uL (0.0-1.1) Eosinophils # (Auto) 0.2 x10^3/uL (0.0-0.7) Basophils # (Auto) 0.1 x10^3/uL (0.0-0.2) Sodium Level 143 mmol/L (136-145) Potassium Level 3.8 mmol/L (3.5-5.1) Chloride Level 109 mmol/L (98-107) Carbon Dioxide Level 23 mmol/L (21-32) Anion Gap 11 (6-14) Blood Urea Nitrogen 54 mg/dL (8-26) Creatinine 4.4 mg/dL (0.7-1.3) Estimated GFR (Cockcroft-Gault) 13.9 BUN/Creatinine Ratio 12 (6-20) Glucose Level 183 mg/dL (70-99) Calcium Level 8.3 mg/dL (8.5-10.1) Troponin I High Sensitivity 23 ng/L (4-75) HW-Zuh-U-Type Natriuretic Peptide 8324 pg/mL (0-124) Images Images PATIENT: GAGAN ZARATE LACCOUNT: [id number] : 1965 LOCATION: ER AGE: 56 SEX: M EXAM STATUS: REG ER ORD. PHYSICIAN: KAMILA GREENBERG APRN REASON: SOA PROCEDURE: PORTABLE CHEST 1V XR CHEST 1V 11/28/2021 2:03 PM INDICATION: Shortness of air COMPARISON: 12/24/2020 TECHNIQUE: Portable frontal view of the chest is provided. FINDINGS: The cardiomediastinal silhouette is similar in appearance. Moderate left pleural effusion with adjacent compressive atelectasis versus infiltrate. Probably calcified nodular opacity is identified within the left upper lobe, stable measuring 1.3 cm. There are no significant pleural effusions. There is no pulmonary vascular congestion. No pneumothorax. No suspicious osseous abnormality. IMPRESSION: Increase in small to moderate left pleural effusion with adjacent compressive atelectasis versus infiltrate. VTE Prophylaxis Ordered VTE Prophylaxis Devices: No VTE Pharmacological Prophylaxi: Yes Assessment/Plan Assessment/Plan Acute diastolic CHF exacerbation Acute on chronic renal failure DM2 HTN Plan: Consultation to cardiology At home patient taking Lasix 40 mg p.o. twice daily as needed Continue IV Lasix daily Echocardiogram from 12/2020 showed mild concentric left ventricular hypertrophy, PAP 25 mmHg, EF 55-60% Limited echocardiogram pending Fluid restriction to 2L daily, monitor urine output. Patient encouraged to elevate legs at night Consultation to nephrology Hold lisinopril IV hydralazine Resume home medications FEN - Cardiac diet PPX - Lovenox FULL CODE/patient surrogate decision-maker is his (Yenni Zarate) Dispo - inpatient for above Justifications for Admission Other Justification Hypertensive emergency SADE ALVARENGA MD Nov 28, 2021 18:00
[2021-11-28] MEDS ORDERED: hydrALAZINE 20 MG/ML VIAL. IVP PRN ×2 (18:15→19:00)
[2021-11-28 18:21] LABS: ALBUMIN 2.7 g/dL (3.4-5.0); ALBUMIN/GLOBULIN RATIO 0.7 (1.0-1.7); MAGNESIUM 1.9 mg/dL (1.8-2.4); TOTAL BILIRUBIN 0.6 mg/dL (0.2-1.0); TOTAL PROTEIN 6.7 g/dL (6.4-8.2)
[2021-11-28] MEDS: ATENOLOL 50 MG TABLET. PO SCH (18:21)
[2021-11-28] MEDS ORDERED: MAGNESIUM HYDROXIDE 2,400 MG/30 ML ORAL.SUSP. PO PRN (18:45)
[2021-11-28] MEDS ORDERED: ONDANSETRON PF 4 MG/2 ML VIAL. IVP PRN ×2 (18:45→20:15)
[2021-11-28] MEDS ORDERED: ZOLPIDEM 5 MG TABLET. PO PRN (18:45)
[2021-11-28] MEDS ORDERED: ACETAMINOPHEN 325 MG TABLET. PO PRN ×2 (18:45→20:15)
[2021-11-28] MEDS ORDERED: HYDROcodone/APAP 5/325MG 1 TAB TABLET PO PRN (18:45)
[2021-11-28] MEDS ORDERED: MAG HYDROX/ALUMINUM HYD/SIMETH 30 ML ORAL.SUSP PO PRN (18:45)
[2021-11-28 18:56] LABS: BACTERIA,URINE 0 /HPF (0-FEW); RBC,URINE 0 /HPF (0-2)
[2021-11-28 18:57] LABS: HYALINE CASTS, URINE OCCASIONAL /HPF
[2021-11-28] MEDS ORDERED: DEXTROSE 50% 25 GM / 50ML DISP.SYRIN. IV PRN (19:00)
[2021-11-28] MEDS ORDERED: IV DEXTROSE 5% 250 ML BAG. IV PRN (19:00)
[2021-11-28] MEDS ORDERED: MORPHINE SULFATE 4 MG/ML INJ. IVP PRN (20:15)
[2021-11-28] MEDS: ENOXAPARIN 30 MG/0.3 ML SYRINGE. SQ SCH (21:02)
[2021-11-28 21:05] VITALS: BP 170/81
[2021-11-28 23:06] VITALS: BP 148/73
[2021-11-29 03:17] VITALS: BP 157/74
[2021-11-29 06:03] LABS: HEMATOCRIT 27.8 % (39.0-53.0); HEMOGLOBIN 9.4 g/dL (13.0-17.5); RED BLOOD COUNT 3.29 x10^6/uL (4.30-5.70); RED CELL DISTRIBUTION WIDTH 16.2 % (11.5-14.5)
[2021-11-29 07:00] VITALS: BP 164/78
[2021-11-29 07:20] LABS: CALCIUM 8.5 mg/dL (8.5-10.1); CREATININE 4.4 mg/dL (0.7-1.3); GFR 13.9; POTASSIUM 4.1 mmol/L (3.5-5.1)
[2021-11-29] MEDS: INSULIN LISPRO 300 UNITS/3 ML VIAL. SQ SCH ×3 (07:58→17:00)
[2021-11-29] MEDS: FUROSEMIDE 40 MG/4 ML VIAL. IVP SCH (08:27)
[2021-11-29] MEDS: ATENOLOL 50 MG TABLET. PO SCH (08:27)
[2021-11-29] MEDS ORDERED: GLIMEPIRIDE 2 MG TABLET. PO SCH (09:00)
--- NOTE | 2021-11-29 09:35 | PDOC2 ---
CONSULT Date of Consult Date of Consult DATE: 11/29/21 TIME: 09:35 Reason for Consult Reason for Consult: adrienne ON ckd Identification/Chief Complaint Chief Complaint I noticed increased swelling in my leg Source Source: Chart review, Patient History of Present Illness Reason for Visit: Patient is a 56-year-old male with past medical history CHF, presents to the ED with complaints of increased bilateral feet swelling for approx 2 weeks with Mild increase in SOb from his baseline . He reports hios wt has been up as well He takes Lasix at home and recently was taking prn as recommended by DIGESTER COOK at his recent visit to our office - was advised to check his wt and BP and adjust dose accordingly Denies any chest pain. Denies any fevers, chills. No N/V diarrhea. History of CVA, CHF, poorly controlled hypertension and diabetes. He states his BP are fair with intermittent Increase . He denies any NSAID use Denies any urinary symptoms , No Dx of BPH . Denies any OTC supplement s Past Medical History Cardiovascular: HTN Pulmonary: No pertinent hx CENTRAL NERVOUS SYSTEM: Other GI: No pertinent hx, GERD Heme/Onc: No pertinent hx Hepatobiliary: No pertinent hx Psych: No pertinent hx Musculoskeletal: Osteoarthritis Rheumatologic: No pertinent hx Infectious disease: Other Renal/: Chronic renal insuff, Other Endocrine: Diabetes Past Surgical History Past Surgical History: Cholecystectomy Family History Family History: Coronary Artery Disease, High Cholestrol, Hypertension Social History <1 pack per day ALCOHOL: none Drugs: None Lives: with Family Current Problem List Problem List Problems Medical Problems: (1) Shortness of breath Status: Acute Current Medications Current Medications Current Medications Furosemide (Lasix) 80 mg 1X ONCE IVP Last administered on 11/28/21at 18:05; Start 11/28/21 at 17:30; Stop 11/28/21 at 17:31; Status DC Amlodipine Besylate (Norvasc) 10 mg DAILY PO Last administered on 11/29/21at 08:27; Start 11/28/21 at 18:30 Atenolol (Tenormin) 50 mg DAILY PO Last administered on 11/29/21at 08:27; Start 11/28/21 at 18:30 Hydralazine HCl (Apresoline Inj) 10 mg PRN Q4HRS PRN IVP HYPERTENSION; Start 11/28/21 at 18:15; Status Cancel Furosemide (Lasix) 40 mg DAILY IVP Last administered on 11/29/21at 08:27; Start 11/29/21 at 09:00 Ondansetron HCl (Zofran) 4 mg PRN Q6HRS PRN IVP NAUSEA/VOMITING; Start 11/28/21 at 18:45 Al Hydroxide/Mg Hydroxide (Mylanta Plus Xs) 30 ml PRN Q3HRS PRN PO HEARTBURN / GAS; Start 11/28/21 at 18:45 Zolpidem Tartrate (Ambien) 5 mg PRN QHS PRN PO INSOMNIA, MAY REPEAT IN 1HR; Start 11/28/21 at 18:45 Acetaminophen/ Hydrocodone Bitart (Lortab 5/325) 1 tab PRN Q4HRS PRN PO MILD PAIN 1-3; Start 11/28/21 at 18:45 Acetaminophen (Tylenol) 650 mg PRN Q6HRS PRN PO Headaches, Temp > 101.5F; Start 11/28/21 at 18:45 Magnesium Hydroxide (Milk Of Magnesia) 2,400 mg PRN Q12HR PRN PO CONSTIPATION; Start 11/28/21 at 18:45 Enoxaparin Sodium (Lovenox 30mg Syringe) 30 mg Q24H SQ Last administered on 11/28/21at 21:02; Start 11/28/21 at 21:00 Glimepiride (Amaryl) 4 mg DAILY PO Last administered on 11/29/21at 08:27; Start 11/29/21 at 09:00 Hydralazine HCl (Apresoline) 100 mg BID PO Last administered on 11/29/21at 08:27; Start 11/28/21 at 21:00 Insulin Human Lispro (HumaLOG) 0-7 UNITS TIDWMEALS SQ ; Start 11/29/21 at 08:00 Dextrose (Dextrose 50%-Water Syringe) 12.5 gm PRN Q15MIN PRN IV SEE COMMENTS; Start 11/28/21 at 19:00; Status UNV Dextrose (Iv Dextrose 5%) 250 ml PRN Q15MIN PRN IV SEE COMMENTS; Start 11/28/21 at 19:00 Hydralazine HCl (Apresoline Inj) 10 mg PRN Q4HRS PRN IVP HYPERTENSION; Start 11/28/21 at 19:00 Ondansetron HCl (Zofran) 4 mg PRN Q8HRS PRN IVP NAUSEA/VOMITING; Start 11/28/21 at 20:15; Stop 11/28/21 at 20:18; Status DC Morphine Sulfate (Morphine Sulfate) 4 mg PRN Q2HR PRN IVP PAIN; Start 11/28/21 at 20:15; Stop 11/29/21 at 20:14 Acetaminophen (Tylenol) 650 mg PRN Q4HRS PRN PO FEVER > 100.3'F; Start 11/28/21 at 20:15; Stop 11/28/21 at 20:18; Status DC Active Scripts Active Lasix (Furosemide) 40 Mg Tablet 40 Mg PO BID Amlodipine Besylate 10 Mg Tablet 10 Mg PO DAILY 30 Days Atenolol 50 Mg Tablet 50 Mg PO DAILY Reported Hydralazine Hcl 100 Mg Tablet 1 Tab PO BID Lisinopril-Hctz 20-12.5 Mg Tab (Lisinopril/Hydrochlorothiazide) 1 Each Tablet 2 Tab PO DAILY Glimepiride 4 Mg Tablet 1 Tab PO DAILY Allergies Allergies: Coded Allergies: tetanus and diphtheria toxoids (Verified Allergy, Severe, Anaphylaxis, 11/28/21) ROS Review of System As per HPI, rest of the ROS is negative Physical Exam Physical Exam General: No acute distress HEENT: Atraumatic, Mucous membr. moist/pink, On RA Neck supple Lungs: Clear to auscultation, non labored Heart: Regular rate Abdomen: Soft, No tenderness Extremities: Bilat LE edema +, Skin: No significant lesion, No rash Neuro: grossly normal Psych/Mental Status: Mental status NL, Mood NL No Mercado Vital Signs Vital Signs Date Time Temp Pulse Resp B/P (MAP) Pulse Ox O2 Delivery O2 Flow Rate FiO2 11/29/21 08:27 61 164/78 11/29/21 07:00 98.5 18 92 Room Air 98.5 Assessment & Plan ADRIENNE on CKD - vs Progression ,IV diuretics as indicted. No emergent indication for dialysis. Monitor , supportive care. 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 Strict I/O, daily standing weight CKD stage 3b/4 -Reviewed records from Office . Seen by DIGESTER COOK on 10/31/2021 Baseline Cr 1.8-1.9 went up to 2.2 since hospitalization i December 2020 with I ncrease to 3.53 in Sep 2021 . Plan for Renal Bx- Not scheduled yet. Will get it at [facility] , Dr Torres, probably tomorrow Dyspnea with acute on chronic diastolic CHF and pleural effusion; Echo 12/23 with preserved LV systolic function. Stress test 12/23 without normal perfusion Proteinuria 2/2 DM and HTN. Pr/Cr 3584 , repeat was 24 Hr Ur Pr 7.7 gms . Renal Bx ordered HTN - Uncontrolled HTN , BP's in 200's systolic / Diastolic also significantly elevated Renal Doppler no e/o SHEFALI . During his recent office visit he reported that he has been taking his meds sporadically . Edema - chronic with worsening Renal Calculus- per pt report x 1 approx 10 years ago,, CT in 2017 . Left-sided nephrolithiasis, nonobstructive. diabetes mellitus type 2- Uncontrolled in past, recent A1C 7.2 per pt, pt reports PCP titrating down Diabetes meds Labs Labs Laboratory Tests Test 11/28/21 14:20 11/28/21 18:00 11/28/21 18:25 11/28/21 20:30 White Blood Count 7.3 x10^3/uL (4.0-11.0) Red Blood Count 3.37 x10^6/uL (4.30-5.70) Hemoglobin 9.5 g/dL (13.0-17.5) Hematocrit 28.2 % (39.0-53.0) Mean Corpuscular Volume 84 fL (79-100) Mean Corpuscular Hemoglobin 28 pg (25-35) Mean Corpuscular Hemoglobin Concent 34 g/dL (31-37) Red Cell Distribution Width 16.3 % (11.5-14.5) Platelet Count 149 x10^3/uL (140-400) Neutrophils (%) (Auto) 80 % (31-73) Lymphocytes (%) (Auto) 9 % (24-48) Monocytes (%) (Auto) 8 % (0-9) Eosinophils (%) (Auto) 3 % (0-3) Basophils (%) (Auto) 1 % (0-3) Neutrophils # (Auto) 5.8 x10^3/uL (1.8-7.7) Lymphocytes # (Auto) 0.6 x10^3/uL (1.0-4.8) Monocytes # (Auto) 0.6 x10^3/uL (0.0-1.1) Eosinophils # (Auto) 0.2 x10^3/uL (0.0-0.7) Basophils # (Auto) 0.1 x10^3/uL (0.0-0.2) Sodium Level 143 mmol/L (136-145) Potassium Level 3.8 mmol/L (3.5-5.1) Chloride Level 109 mmol/L (98-107) Carbon Dioxide Level 23 mmol/L (21-32) Anion Gap 11 (6-14) Blood Urea Nitrogen 54 mg/dL (8-26) Creatinine 4.4 mg/dL (0.7-1.3) Estimated GFR (Cockcroft-Gault) 13.9 BUN/Creatinine Ratio 12 (6-20) Glucose Level 183 mg/dL (70-99) Calcium Level 8.3 mg/dL (8.5-10.1) Magnesium Level 1.9 mg/dL (1.8-2.4) Total Bilirubin 0.6 mg/dL (0.2-1.0) Aspartate Amino Transf (AST/SGOT) 25 U/L (15-37) Alanine Aminotransferase (ALT/SGPT) 31 U/L (16-63) Alkaline Phosphatase 112 U/L (46-116) Troponin I High Sensitivity 23 ng/L (4-75) 20 ng/L (4-75) 24 ng/L (4-75) KV-Lyc-E-Type Natriuretic Peptide 8324 pg/mL (0-124) Total Protein 6.7 g/dL (6.4-8.2) Albumin 2.7 g/dL (3.4-5.0) Albumin/Globulin Ratio 0.7 (1.0-1.7) Urine Collection Type Unknown Urine Color (Auto) Light yellow Urine Turbidity Clear Urine pH (Auto) 6.0 (<5.0-8.0) Urine Specific [place] 1.016 (1.000-1.030) Urine Protein (Auto) 300 mg/dL (Negative) Urine Glucose (Auto)(UA) 100 mg/dL (Negative) Urine Ketones (Auto) Negative mg/dL (Negative) Urine Blood (Auto) Negative (Negative) Urine Nitrite Negative (Negative) Urine Bilirubin (Auto) Negative (Negative) Urine Urobilinogen (Auto) Normal mg/dL (Normal) Urine Leukocyte Esterase (Auto) Negative (Negative) Urine RBC 0 /HPF (0-2) Urine WBC 1-4 /HPF (0-4) Urine Squamous Epithelial Cells Few /LPF Urine Bacteria 0 /HPF (0-FEW) Urine Hyaline Casts Occasional /HPF Urine Mucus Slight /LPF Test 11/29/21 04:45 11/29/21 07:41 White Blood Count 8.0 x10^3/uL (4.0-11.0) Red Blood Count 3.29 x10^6/uL (4.30-5.70) Hemoglobin 9.4 g/dL (13.0-17.5) Hematocrit 27.8 % (39.0-53.0) Mean Corpuscular Volume 85 fL (79-100) Mean Corpuscular Hemoglobin 29 pg (25-35) Mean Corpuscular Hemoglobin Concent 34 g/dL (31-37) Red Cell Distribution Width 16.2 % (11.5-14.5) Platelet Count 148 x10^3/uL (140-400) Sodium Level 144 mmol/L (136-145) Potassium Level 4.1 mmol/L (3.5-5.1) Chloride Level 110 mmol/L (98-107) Carbon Dioxide Level 23 mmol/L (21-32) Anion Gap 11 (6-14) Blood Urea Nitrogen 53 mg/dL (8-26) Creatinine 4.4 mg/dL (0.7-1.3) Estimated GFR (Cockcroft-Gault) 13.9 Glucose Level 92 mg/dL (70-99) Calcium Level 8.5 mg/dL (8.5-10.1) Glucose (Fingerstick) 99 mg/dL (70-99) Laboratory Tests Test 11/28/21 14:20 11/28/21 18:00 11/28/21 18:25 11/28/21 20:30 White Blood Count 7.3 x10^3/uL (4.0-11.0) Red Blood Count 3.37 x10^6/uL (4.30-5.70) Hemoglobin 9.5 g/dL (13.0-17.5) Hematocrit 28.2 % (39.0-53.0) Mean Corpuscular Volume 84 fL (79-100) Mean Corpuscular Hemoglobin 28 pg (25-35) Mean Corpuscular Hemoglobin Concent 34 g/dL (31-37) Red Cell Distribution Width 16.3 % (11.5-14.5) Platelet Count 149 x10^3/uL (140-400) Neutrophils (%) (Auto) 80 % (31-73) Lymphocytes (%) (Auto) 9 % (24-48) Monocytes (%) (Auto) 8 % (0-9) Eosinophils (%) (Auto) 3 % (0-3) Basophils (%) (Auto) 1 % (0-3) Neutrophils # (Auto) 5.8 x10^3/uL (1.8-7.7) Lymphocytes # (Auto) 0.6 x10^3/uL (1.0-4.8) Monocytes # (Auto) 0.6 x10^3/uL (0.0-1.1) Eosinophils # (Auto) 0.2 x10^3/uL (0.0-0.7) Basophils # (Auto) 0.1 x10^3/uL (0.0-0.2) Sodium Level 143 mmol/L (136-145) Potassium Level 3.8 mmol/L (3.5-5.1) Chloride Level 109 mmol/L (98-107) Carbon Dioxide Level 23 mmol/L (21-32) Anion Gap 11 (6-14) Blood Urea Nitrogen 54 mg/dL (8-26) Creatinine 4.4 mg/dL (0.7-1.3) Estimated GFR (Cockcroft-Gault) 13.9 BUN/Creatinine Ratio 12 (6-20) Glucose Level 183 mg/dL (70-99) Calcium Level 8.3 mg/dL (8.5-10.1) Magnesium Level 1.9 mg/dL (1.8-2.4) Total Bilirubin 0.6 mg/dL (0.2-1.0) Aspartate Amino Transf (AST/SGOT) 25 U/L (15-37) Alanine Aminotransferase (ALT/SGPT) 31 U/L (16-63) Alkaline Phosphatase 112 U/L (46-116) Troponin I High Sensitivity 23 ng/L (4-75) 20 ng/L (4-75) 24 ng/L (4-75) LR-Vhg-R-Type Natriuretic Peptide 8324 pg/mL (0-124) Total Protein 6.7 g/dL (6.4-8.2) Albumin 2.7 g/dL (3.4-5.0) Albumin/Globulin Ratio 0.7 (1.0-1.7) Urine Collection Type Unknown Urine Color (Auto) Light yellow Urine Turbidity Clear Urine pH (Auto) 6.0 (<5.0-8.0) Urine Specific [place] 1.016 (1.000-1.030) Urine Protein (Auto) 300 mg/dL (Negative) Urine Glucose (Auto)(UA) 100 mg/dL (Negative) Urine Ketones (Auto) Negative mg/dL (Negative) Urine Blood (Auto) Negative (Negative) Urine Nitrite Negative (Negative) Urine Bilirubin (Auto) Negative (Negative) Urine Urobilinogen (Auto) Normal mg/dL (Normal) Urine Leukocyte Esterase (Auto) Negative (Negative) Urine RBC 0 /HPF (0-2) Urine WBC 1-4 /HPF (0-4) Urine Squamous Epithelial Cells Few /LPF Urine Bacteria 0 /HPF (0-FEW) Urine Hyaline Casts Occasional /HPF Urine Mucus Slight /LPF Test 11/29/21 04:45 11/29/21 07:41 White Blood Count 8.0 x10^3/uL (4.0-11.0) Red Blood Count 3.29 x10^6/uL (4.30-5.70) Hemoglobin 9.4 g/dL (13.0-17.5) Hematocrit 27.8 % (39.0-53.0) Mean Corpuscular Volume 85 fL (79-100) Mean Corpuscular Hemoglobin 29 pg (25-35) Mean Corpuscular Hemoglobin Concent 34 g/dL (31-37) Red Cell Distribution Width 16.2 % (11.5-14.5) Platelet Count 148 x10^3/uL (140-400) Sodium Level 144 mmol/L (136-145) Potassium Level 4.1 mmol/L (3.5-5.1) Chloride Level 110 mmol/L (98-107) Carbon Dioxide Level 23 mmol/L (21-32) Anion Gap 11 (6-14) Blood Urea Nitrogen 53 mg/dL (8-26) Creatinine 4.4 mg/dL (0.7-1.3) Estimated GFR (Cockcroft-Gault) 13.9 Glucose Level 92 mg/dL (70-99) Calcium Level 8.5 mg/dL (8.5-10.1) Glucose (Fingerstick) 99 mg/dL (70-99) Review All relevant outside records, renal labs, imaging studies, telemetry/EKG's were reviewed. Images Images : Portable frontal view of the chest is provided. FINDINGS: The cardiomediastinal silhouette is similar in appearance. Moderate left pleural effusion with adjacent compressive atelectasis versus infiltrate. Probably calcified nodular opacity is identified within the left upper lobe, stable measuring 1.3 cm. There are no significant pleural effusions. There is no pulmonary vascular congestion. No pneumothorax. No suspicious osseous abnormality. IMPRESSION: Increase in small to moderate left pleural effusion with adjacent compressive atelectasis versus infiltrate. CARSON HAWKINS MD Nov 29, 2021 09:35
[2021-11-29 11:00] VITALS: BP 160/73
--- NOTE | 2021-11-29 11:36 | PDOC ---
[employer] PROGRESS NOTE Date of Service DOS: DATE: 11/29/21 TIME: 11:10 Chief Complaint Chief Complaint Acute diastolic CHF exacerbation Acute on chronic renal failure DM2 HTN Plan: Consultation to cardiology At home patient taking Lasix 40 mg p.o. twice daily as needed Continue IV Lasix daily Echocardiogram from 12/2020 showed mild concentric left ventricular hypertrophy, PAP 25 mmHg, EF 55-60% Limited echocardiogram pending Fluid restriction to 2L daily, monitor urine output. Patient encouraged to elevate legs at night Consultation to nephrology Hold lisinopril IV hydralazine Resume home medications FEN - Cardiac diet PPX - Lovenox FULL CODE/patient surrogate decision-maker is his (Yenni Bates) Dispo - inpatient for above History of Present Illness History of Present Illness Patient is a 56-year-old male with past medical history CHF, presents to the ED with complaints of worsening shortness of breath over the past 2 weeks. He notes associated bilateral feet swelling. States he has taken his home Lasix with improvement. 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 States last time he took Lasix was one day ago. Denies any chest pain. Labs on admission showed hemoglobin 9.5, hematocrit 28.2, BUN 54, creatinine 4.4, CBG 188, proBNP 8324. Chest x-ray on admission showed increase in small to moderate left pleural effusion with adjacent compressive atelectasis versus infiltrate. Will admit patient for further medical management. 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 Still with shortness of breath on exertion and significant lower extremity swelling on IV Lasix. Vitals/I&O Vitals/I&O: Vital Signs Date Time Temp Pulse Resp B/P (MAP) Pulse Ox O2 Delivery O2 Flow Rate FiO2 11/29/21 11:00 98.6 62 18 160/73 (102) Room Air 98.6 11/29/21 07:00 92 I & O 11/28/21 11/28/21 11/29/21 15:00 23:00 07:00 Intake Total 100 ml Balance 100 ml Physical Exam Lungs: Clear Labs Labs: Laboratory Tests Test 11/28/21 14:20 11/28/21 18:00 11/28/21 18:25 11/28/21 20:30 White Blood Count 7.3 x10^3/uL (4.0-11.0) Red Blood Count 3.37 x10^6/uL (4.30-5.70) Hemoglobin 9.5 g/dL (13.0-17.5) Hematocrit 28.2 % (39.0-53.0) Mean Corpuscular Volume 84 fL (79-100) Mean Corpuscular Hemoglobin 28 pg (25-35) Mean Corpuscular Hemoglobin Concent 34 g/dL (31-37) Red Cell Distribution Width 16.3 % (11.5-14.5) Platelet Count 149 x10^3/uL (140-400) Neutrophils (%) (Auto) 80 % (31-73) Lymphocytes (%) (Auto) 9 % (24-48) Monocytes (%) (Auto) 8 % (0-9) Eosinophils (%) (Auto) 3 % (0-3) Basophils (%) (Auto) 1 % (0-3) Neutrophils # (Auto) 5.8 x10^3/uL (1.8-7.7) Lymphocytes # (Auto) 0.6 x10^3/uL (1.0-4.8) Monocytes # (Auto) 0.6 x10^3/uL (0.0-1.1) Eosinophils # (Auto) 0.2 x10^3/uL (0.0-0.7) Basophils # (Auto) 0.1 x10^3/uL (0.0-0.2) Sodium Level 143 mmol/L (136-145) Potassium Level 3.8 mmol/L (3.5-5.1) Chloride Level 109 mmol/L (98-107) Carbon Dioxide Level 23 mmol/L (21-32) Anion Gap 11 (6-14) Blood Urea Nitrogen 54 mg/dL (8-26) Creatinine 4.4 mg/dL (0.7-1.3) Estimated GFR (Cockcroft-Gault) 13.9 BUN/Creatinine Ratio 12 (6-20) Glucose Level 183 mg/dL (70-99) Calcium Level 8.3 mg/dL (8.5-10.1) Magnesium Level 1.9 mg/dL (1.8-2.4) Total Bilirubin 0.6 mg/dL (0.2-1.0) Aspartate Amino Transf (AST/SGOT) 25 U/L (15-37) Alanine Aminotransferase (ALT/SGPT) 31 U/L (16-63) Alkaline Phosphatase 112 U/L (46-116) Troponin I High Sensitivity 23 ng/L (4-75) 20 ng/L (4-75) 24 ng/L (4-75) WH-Aum-Y-Type Natriuretic Peptide 8324 pg/mL (0-124) Total Protein 6.7 g/dL (6.4-8.2) Albumin 2.7 g/dL (3.4-5.0) Albumin/Globulin Ratio 0.7 (1.0-1.7) Urine Collection Type Unknown Urine Color (Auto) Light yellow Urine Turbidity Clear Urine pH (Auto) 6.0 (<5.0-8.0) Urine Specific [place] 1.016 (1.000-1.030) Urine Protein (Auto) 300 mg/dL (Negative) Urine Glucose (Auto)(UA) 100 mg/dL (Negative) Urine Ketones (Auto) Negative mg/dL (Negative) Urine Blood (Auto) Negative (Negative) Urine Nitrite Negative (Negative) Urine Bilirubin (Auto) Negative (Negative) Urine Urobilinogen (Auto) Normal mg/dL (Normal) Urine Leukocyte Esterase (Auto) Negative (Negative) Urine RBC 0 /HPF (0-2) Urine WBC 1-4 /HPF (0-4) Urine Squamous Epithelial Cells Few /LPF Urine Bacteria 0 /HPF (0-FEW) Urine Hyaline Casts Occasional /HPF Urine Mucus Slight /LPF Test 11/29/21 04:45 11/29/21 07:41 White Blood Count 8.0 x10^3/uL (4.0-11.0) Red Blood Count 3.29 x10^6/uL (4.30-5.70) Hemoglobin 9.4 g/dL (13.0-17.5) Hematocrit 27.8 % (39.0-53.0) Mean Corpuscular Volume 85 fL (79-100) Mean Corpuscular Hemoglobin 29 pg (25-35) Mean Corpuscular Hemoglobin Concent 34 g/dL (31-37) Red Cell Distribution Width 16.2 % (11.5-14.5) Platelet Count 148 x10^3/uL (140-400) Sodium Level 144 mmol/L (136-145) Potassium Level 4.1 mmol/L (3.5-5.1) Chloride Level 110 mmol/L (98-107) Carbon Dioxide Level 23 mmol/L (21-32) Anion Gap 11 (6-14) Blood Urea Nitrogen 53 mg/dL (8-26) Creatinine 4.4 mg/dL (0.7-1.3) Estimated GFR (Cockcroft-Gault) 13.9 Glucose Level 92 mg/dL (70-99) Calcium Level 8.5 mg/dL (8.5-10.1) Glucose (Fingerstick) 99 mg/dL (70-99) Assessment and Plan Assessmemt and Plan Problems Medical Problems: (1) Shortness of breath Status: Acute Comment Review of Relevant I have reviewed the following items rosanne (where applicable) has been applied. Medications: Current Medications Medications (Trade) Dose Ordered Sig/Zeyad Route PRN Reason Start Time Stop Time Status Last Admin Dose Admin Furosemide (Lasix) 80 mg 1X ONCE IVP 11/28/21 17:30 11/28/21 17:31 DC 11/28/21 18:05 Amlodipine Besylate (Norvasc) 10 mg DAILY PO 11/28/21 18:30 11/29/21 08:27 Atenolol (Tenormin) 50 mg DAILY PO 11/28/21 18:30 11/29/21 08:27 Furosemide (Lasix) 40 mg DAILY IVP 11/29/21 09:00 11/29/21 08:27 Enoxaparin Sodium (Lovenox 30mg Syringe) 30 mg Q24H SQ 11/28/21 21:00 11/28/21 21:02 Glimepiride (Amaryl) 4 mg DAILY PO 11/29/21 09:00 11/29/21 08:27 Hydralazine HCl (Apresoline) 100 mg BID PO 11/28/21 21:00 11/29/21 08:27 Justifications for Admission Other Justification Hypertensive emergency OC GUNTER MD Nov 29, 2021 11:36
--- NOTE | 2021-11-29 11:42 | EKG ---
[facility] [address] [place] [address] Test Date: 2021-11-28 Test Time: 00:00:00 Pat Name: GAGAN ZARATE Department: Room: 203 1 Gender: M Personnel Associate: : [id number] Requested By: KAMILA GREENBERG Order Number: [id number] Reading MD: Juan Carlos Spivey Measurements Intervals [place] Rate: 59 P: 36 OR: 172 QRS: 6 QRSD: 96 T: 37 QT: 416 QTc: 416 Interpretive Statements SINUS RHYTHM LOW LIMB LEAD VOLTAGE Electronically Signed On 11-29-2021 16:46:08 CDT by Juan Carlos Spivey
--- NOTE | 2021-11-29 13:05 | PDOC2 ---
MAKAYLASWAPNIL STARK SARA 11/29/21 1305: CARDIAC CONSULT DATE OF CONSULT Date of Consult DATE: 11/29/21 TIME: 12:59 REASON FOR CONSULT Reason for Consult: CHF REFERRING PHYSICIAN Referring Physician: Brigida Tse APRN SOURCE Source: Chart review, Patient HISTORY OF PRESENT ILLNESS HISTORY OF PRESENT ILLNESS This is a 56 yo male who presented secondary to shortness of breath and bilateral LE edema. Reports chronic LE edema, although has been increasing over the last couple of weeks. Has been more short of breath for the last couple of weeks as well. Noted with CHF and ADRIENNE on CKD with Cr. Reports compliance with Lasix therapy. PAST MEDICAL HISTORY Cardiovascular: CHF, HTN GI: GERD Renal/: Chronic renal insuff Endocrine: Diabetes PAST SURGICAL HISTORY Past Surgical History: Cholecystectomy FAMILY HISTORY Family History Coronary Artery Disease (brother ) SOCIAL HISTORY Smoke: No ALCOHOL: occassional Drugs: None Lives: with Family CURRENT MEDICATIONS CURRENT MEDICATIONS Current Medications Medications (Trade) Dose Ordered Sig/Zeyad Route PRN Reason Start Time Stop Time Status Last Admin Dose Admin Furosemide (Lasix) 80 mg 1X ONCE IVP 11/28/21 17:30 11/28/21 17:31 DC 11/28/21 18:05 Amlodipine Besylate (Norvasc) 10 mg DAILY PO 11/28/21 18:30 11/29/21 08:27 Atenolol (Tenormin) 50 mg DAILY PO 11/28/21 18:30 11/29/21 12:51 DC 11/29/21 08:27 Furosemide (Lasix) 40 mg DAILY IVP 11/29/21 09:00 11/29/21 08:27 Enoxaparin Sodium (Lovenox 30mg Syringe) 30 mg Q24H SQ 11/28/21 21:00 11/28/21 21:02 Glimepiride (Amaryl) 4 mg DAILY PO 11/29/21 09:00 11/29/21 12:51 DC 11/29/21 08:27 Hydralazine HCl (Apresoline) 100 mg BID PO 11/28/21 21:00 11/29/21 08:27 Insulin Human Lispro (HumaLOG) 0-7 UNITS TIDWMEALS SQ 11/29/21 08:00 11/29/21 11:51 ALLERGIES ALLERGIES: Coded Allergies: tetanus and diphtheria toxoids (Verified Allergy, Severe, Anaphylaxis, 11/28/21) ROS Review of System 14 point ROS conducted with pertinent positives noted above in hPI PHYSICAL EXAM PHYSICAL EXAM General: Alert, Oriented X3, Cooperative, No acute distress HEENT: Atraumatic, Mucous membr. moist/pink Lungs: Diminished bases Heart: Regular rate Abdomen: Soft, No tenderness Extremities: 2-3+ bilateral LE edema Skin: No significant lesion Neuro: Normal speech, Sensation intact Psych/Mental Status: Mental status NL, Mood NL MUSCULOSKELETAL: No deformity VITALS/I&O VITALS/I&O: Vital Signs Date Time Temp Pulse Resp B/P (MAP) Pulse Ox O2 Delivery O2 Flow Rate FiO2 11/29/21 11:00 98.6 62 18 160/73 (102) Room Air 98.6 11/29/21 07:00 92 I & O 11/28/21 11/28/21 11/29/21 15:00 23:00 07:00 Intake Total 100 ml Balance 100 ml LABS Lab: Laboratory Tests Test 11/28/21 14:20 11/28/21 18:00 11/28/21 18:25 11/28/21 20:30 White Blood Count 7.3 x10^3/uL (4.0-11.0) Red Blood Count 3.37 x10^6/uL (4.30-5.70) L Hemoglobin 9.5 g/dL (13.0-17.5) L Hematocrit 28.2 % (39.0-53.0) L Mean Corpuscular Volume 84 fL (79-100) Mean Corpuscular Hemoglobin 28 pg (25-35) Mean Corpuscular Hemoglobin Concent 34 g/dL (31-37) Red Cell Distribution Width 16.3 % (11.5-14.5) H Platelet Count 149 x10^3/uL (140-400) Neutrophils (%) (Auto) 80 % (31-73) H Lymphocytes (%) (Auto) 9 % (24-48) L Monocytes (%) (Auto) 8 % (0-9) Eosinophils (%) (Auto) 3 % (0-3) Basophils (%) (Auto) 1 % (0-3) Neutrophils # (Auto) 5.8 x10^3/uL (1.8-7.7) Lymphocytes # (Auto) 0.6 x10^3/uL (1.0-4.8) L Monocytes # (Auto) 0.6 x10^3/uL (0.0-1.1) Eosinophils # (Auto) 0.2 x10^3/uL (0.0-0.7) Basophils # (Auto) 0.1 x10^3/uL (0.0-0.2) Sodium Level 143 mmol/L (136-145) Potassium Level 3.8 mmol/L (3.5-5.1) Chloride Level 109 mmol/L (98-107) H Carbon Dioxide Level 23 mmol/L (21-32) Anion Gap 11 (6-14) Blood Urea Nitrogen 54 mg/dL (8-26) H Creatinine 4.4 mg/dL (0.7-1.3) H Estimated GFR (Cockcroft-Gault) 13.9 BUN/Creatinine Ratio 12 (6-20) Glucose Level 183 mg/dL (70-99) H Calcium Level 8.3 mg/dL (8.5-10.1) L Magnesium Level 1.9 mg/dL (1.8-2.4) Total Bilirubin 0.6 mg/dL (0.2-1.0) Aspartate Amino Transferase (AST) 25 U/L (15-37) Alanine Aminotransferase (ALT) 31 U/L (16-63) Alkaline Phosphatase 112 U/L (46-116) Troponin I High Sensitivity 23 ng/L (4-75) 20 ng/L (4-75) 24 ng/L (4-75) IV-Pdr-Q-Type Natriuretic Peptide 8324 pg/mL (0-124) H Total Protein 6.7 g/dL (6.4-8.2) Albumin 2.7 g/dL (3.4-5.0) L Albumin/Globulin Ratio 0.7 (1.0-1.7) L Urine Collection Type Unknown Urine Color (Auto) Light yellow Urine Turbidity Clear Urine pH (Auto) 6.0 (<5.0-8.0) Urine Specific Preston 1.016 (1.000-1.030) Urine Protein (Auto) 300 mg/dL (Negative) Urine Glucose (Auto)(UA) 100 mg/dL (Negative) Urine Ketones (Auto) Negative mg/dL (Negative) Urine Blood (Auto) Negative (Negative) Urine Nitrite Negative (Negative) Urine Bilirubin (Auto) Negative (Negative) Urine Urobilinogen (Auto) Normal mg/dL (Normal) Urine Leukocyte Esterase (Auto) Negative (Negative) Urine RBC 0 /HPF (0-2) Urine WBC 1-4 /HPF (0-4) Urine Squamous Epithelial Cells Few /LPF Urine Bacteria 0 /HPF (0-FEW) Urine Hyaline Casts Occasional /HPF Urine Mucus Slight /LPF Test 11/29/21 04:45 11/29/21 07:41 11/29/21 11:34 White Blood Count 8.0 x10^3/uL (4.0-11.0) Red Blood Count 3.29 x10^6/uL (4.30-5.70) L Hemoglobin 9.4 g/dL (13.0-17.5) L Hematocrit 27.8 % (39.0-53.0) L Mean Corpuscular Volume 85 fL (79-100) Mean Corpuscular Hemoglobin 29 pg (25-35) Mean Corpuscular Hemoglobin Concent 34 g/dL (31-37) Red Cell Distribution Width 16.2 % (11.5-14.5) H Platelet Count 148 x10^3/uL (140-400) Sodium Level 144 mmol/L (136-145) Potassium Level 4.1 mmol/L (3.5-5.1) Chloride Level 110 mmol/L (98-107) H Carbon Dioxide Level 23 mmol/L (21-32) Anion Gap 11 (6-14) Blood Urea Nitrogen 53 mg/dL (8-26) H Creatinine 4.4 mg/dL (0.7-1.3) H Estimated GFR (Cockcroft-Gault) 13.9 Glucose Level 92 mg/dL (70-99) Calcium Level 8.5 mg/dL (8.5-10.1) Glucose (Fingerstick) 99 mg/dL (70-99) 199 mg/dL (70-99) H Laboratory Tests 11/28/21 14:20 11/29/21 04:45 Laboratory Tests 11/28/21 14:20 11/29/21 04:45 ECHOCARDIOGRAM ECHOCARDIOGRAM <Conclusion> The left ventricle is normal size. The left ventricular systolic function is normal and the ejection fraction is within normal range. The Ejection Fraction is 55-60%. There is mild concentric left ventricular hypertrophy. Doppler and Color Flow revealed no significant aortic regurgitation. There is no significant aortic valvular stenosis. Doppler and Color-flow revealed trace mitral regurgitation. Doppler and Color Flow revealed trace tricuspid regurgitation with an estimated PAP of 25 mmHg. DATE: 12/05/20 [id number] STRESS TEST STRESS TEST Conclusion 1. No evidence of EKG changes with stress testing. 2. Normal perfusion at stress/rest. 3. Low risk study. 4. EF > 60%. DATE: 12/28/20 [id number] ASSESSMENT/PLAN ASSESSMENT/PLAN 1. Dyspnea with acute on chronic diastolic CHF and pleural effusion; Echo 12/23 with preserved LV systolic function. Stress test 12/23 without normal perfusion 2. Accelerated hypertensive; remains mildly elevated 3. ADRIENNE on CKD; Cr ^ 4.4. Renal biopsy planned 4. Diabetes, II 5. Hyperlipidemia 6. GERD Recommendations Avoid nephrotoxins Diuresis as per renal Continue metoprolol, amlodipine, hydralazine Add Imdur No ACEi/ARB with RI Limited echo Supportive care DAVID OSBORNE MD 11/29/21 1533: CARDIAC CONSULT ASSESSMENT/PLAN ASSESSMENT/PLAN Patient seen and examined He reports feeling better this morning. I agree with our nurse practitioners assessment and plan. Dyspnea with acute on chronic diastolic CHF and pleural effusion; Echo 12/23 with preserved LV systolic function. Stress test 12/23 without normal perfusion Accelerated hypertensive; remains mildly elevated. Continue baseline medicati ons and add Imdur. ADRIENNE on CKD; Cr ^ 4.4. Renal biopsy planned. Fluid management as per renal. Diabetes, II Hyperlipidemia GERD SWAPNIL BENAVIDES APRN Nov 29, 2021 13:05 DAVID OSBORNE MD Nov 29, 2021 15:33
[2021-11-29 13:20] LABS: PROTHROMBIN TIME PATIENT 14.1 SEC (11.7-14.0)
[2021-11-29] MEDS ORDERED: ISOSORBIDE MONONITRATE ER 30 MG TAB.ER.24H PO SCH (14:30)
[2021-11-29 15:00] VITALS: BP 148/73
[2021-11-29] MEDS: ISOSORBIDE MONONITRATE ER 30 MG TAB.ER.24H PO SCH (15:48)
[2021-11-29] MEDS: METOPROLOL SUCC 24HR ER 25 MG TAB.ER.24H. PO SCH (15:49)
--- NOTE | 2021-11-29 16:11 | CARD ---
MR#: [id number] Date of Study: 11/29/2021 Ordering Physician: SADE ALVARENGA, Referring Physician: SADE ALVARENGA Tech: Mitra Bosch SHANTA APPROVED REPORT EXAM: Two-dimensional and M-mode echocardiogram with Doppler and color Doppler. Other Information Quality : AverageHR: 67bpm Rhythm : NSR INDICATION Dyspnea RISK FACTORS Hypertension Obesity Diabetes 2D DIMENSIONS Left Atrium(2D)5.3 (1.6-4.0cm)IVSd1.8 (0.7-1.1cm) Aortic Root(2D)3.2 (2.0-3.7cm)LVDd5.0 (3.9-5.9cm) LVOT Diameter2.5 (1.8-2.4cm)PWd1.5 (0.7-1.1cm) LVDs2.9 (2.5-4.0cm)FS (%) 42.6 % SV86.1 mlLVEF(%)73.4 (>50%) LEFT VENTRICLE The left ventricle is normal size. There is moderate concentric left ventricular hypertrophy. The lef t ventricular systolic function is normal. There is normal LV segmental wall motion. The ejection fra ction is estimated at 60%. The left ventricular diastolic function and filling is normal for age. RIGHT VENTRICLE The right ventricle is normal size. There is normal right ventricular wall thickness. The right ventr icular systolic function is normal. ATRIA The left atrium size is normal. The right atrium size is normal. The interatrial septum is intact wit h no evidence for an atrial septal defect or patent foramen ovale as noted on 2-D or Doppler imaging. AORTIC VALVE The aortic valve is normal in structure and function. There is no significant aortic valvular stenosi s. MITRAL VALVE The mitral valve is normal in structure and function. There is no evidence of mitral valve prolapse. There is no mitral valve stenosis. TRICUSPID VALVE The tricuspid valve is normal in structure and function. Doppler and Color Flow revealed trace tricus pid regurgitation. There is no tricuspid valve stenosis. PULMONIC VALVE The pulmonary valve is normal in structure and function. GREAT VESSELS The aortic root is normal in size. The ascending aorta is normal in size. The IVC is normal in size a nd collapses >50% with inspiration. PERICARDIAL EFFUSION There is no evidence of significant pericardial effusion. Critical Notification Critical Value: No <Conclusion> There is normal LV segmental wall motion. The ejection fraction is estimated at 60%. No regional wall motion abnormalities. Tace tricuspid regurgitation. There is no evidence of significant pericardial effusion. Signed by : Wayne Hensley, Electronically Approved : 11/29/2021 16:11:02
[2021-11-29 19:00] VITALS: BP 159/77
[2021-11-29] MEDS: ENOXAPARIN 30 MG/0.3 ML SYRINGE. SQ SCH (19:11)
[2021-11-29 23:00] VITALS: BP 158/72
[2021-11-30] VITALS (15 sets, daily range): BP systolic 133–176; BP diastolic 63–84
[2021-11-30] MEDS: INSULIN LISPRO 300 UNITS/3 ML VIAL. SQ SCH ×3 (07:38→17:00)
[2021-11-30 08:11] LABS: CALCIUM 8.5 mg/dL (8.5-10.1); CREATININE 4.5 mg/dL (0.7-1.3); GFR 13.6; POTASSIUM 3.8 mmol/L (3.5-5.1)
--- NOTE | 2021-11-30 08:47 | PDOC ---
SWAPNIL BENAVIDES [employer]APH[employer] ARTIST 11/30/21 0847: CARDIO Progress Notes Date and Time Date of Service 11/30/21 Time of Evaluation 1100 Subjective Subjective: No Chest Pain, No Palpitations, Other (SOA better, LE still very swollen ) Vitals Vitals Vital Signs Date Time Temp Pulse Resp B/P (MAP) Pulse Ox O2 Delivery O2 Flow Rate FiO2 11/30/21 03:00 98.0 60 20 156/68 (97) 96 Room Air 98.0 Weight Weight [ ] Input and Output Intake and Output Intake and Output 11/30/21 07:00 Output Total 1200 ml Balance -1200 ml Output Urine Total 1200 ml # Voids 1 Laboratory Labs Laboratory Tests Test 11/29/21 11:34 11/29/21 12:56 11/29/21 16:48 11/29/21 19:32 Glucose (Fingerstick) 199 mg/dL (70-99) 120 mg/dL (70-99) 181 mg/dL (70-99) Prothrombin Time 14.1 SEC (11.7-14.0) Prothromb Time International Ratio 1.1 (0.8-1.1) Activated Partial Thromboplast Time 53 SEC (24-38) Test 11/30/21 07:21 11/30/21 07:25 11/30/21 07:51 Glucose (Fingerstick) 95 mg/dL (70-99) Sodium Level 145 mmol/L (136-145) Potassium Level 3.8 mmol/L (3.5-5.1) Chloride Level 110 mmol/L (98-107) Carbon Dioxide Level 24 mmol/L (21-32) Anion Gap 11 (6-14) Blood Urea Nitrogen 56 mg/dL (8-26) Creatinine 4.5 mg/dL (0.7-1.3) Estimated GFR (Cockcroft-Gault) 13.6 Glucose Level 96 mg/dL (70-99) Calcium Level 8.5 mg/dL (8.5-10.1) SARS-CoV-2 Antigen (Rapid) Negative (NEGATIVE) Physical Exam HEENT: Neck Supple W Full Motion Chest: Symmetric LUNGS: Clear to Auscultation Heart: RRR Abdomen: Soft N/T Extremities: Other (2+ bilateral LE edema ) Neurology: alert, oriented, follow commands Assessment Assessment 1. Dyspnea with acute on chronic diastolic CHF and pleural effusion; Echo 12/23 with preserved LV systolic function. Stress test 12/23 without normal perfusion. Limited echo showed LVEF 60%, no WMA 2. Accelerated hypertensive; remains mildly elevated 3. ADRIENNE on CKD; Cr ^ 4.5. Renal biopsy planned. Temp HD cath to be placed 4. Diabetes, II 5. Hyperlipidemia 6. GERD Recommendations Avoid nephrotoxins Diuresis as per renal Continue metoprolol, amlodipine, hydralazine, and Imdur No ACEi/ARB with RI Supportive care Justicifation of Admission Dx: Justifications for Admission: Justification of Admission Dx: Yes DAVID OSBORNE MD 11/30/21 1610: CARDIO Progress Notes Assessment Assessment Patient seen and examined The patient is feeling better today. I agree with our nurse practitioners assessment and plan. Dyspnea with acute on chronic diastolic CHF and pleural effusion; Echo 12/23 with preserved LV systolic function. Stress test 12/23 without normal perfusion. Limited echo showed LVEF 60%, no WMA Accelerated hypertensive; mildly improved. ADRIENNE on CKD; Cr ^ 4.5. Renal biopsy planned. Temp HD cath to be placed Diabetes, II Hyperlipidemia GERD SWAPNIL BENAVIDES APRN Nov 30, 2021 08:47 DAVID OSBORNE MD Nov 30, 2021 16:10
--- NOTE | 2021-11-30 09:38 | PDOC ---
DATE OF SERVICE DATE: 11/30/21 TIME: 09:38 SUBJECTIVE ROS Denies SOB NPO for Kidney Bx and Possible placement of Temp HDC OBJECTIVE Vital Signs Vital Signs Date Time Temp Pulse Resp B/P (MAP) Pulse Ox O2 Delivery O2 Flow Rate FiO2 11/30/21 07:00 98.1 57 18 167/76 (106) 92 Room Air 98.1 I & 0 Intake and Output 11/30/21 07:00 Output Total 1200 ml Balance -1200 ml Output Urine Total 1200 ml # Voids 1 PHYSICAL EXAM Physical Exam General: No acute distress HEENT: Atraumatic, Mucous membr. moist/pink, On RA Neck supple Lungs: Clear to auscultation, non labored Heart: Regular rate Abdomen: Soft, No tenderness Extremities: Bilat LE edema +, Skin: No significant lesion, No rash Neuro: grossly normal Psych/Mental Status: Mental status NL, Mood NL No Mercado Vital Signs Vital Signs Date Time Temp Pulse Resp B/P (MAP) Pulse Ox O2 Delivery O2 Flow Rate FiO2 11/29/21 08:27 61 164/78 11/29/21 07:00 98.5 18 92 Room Air 98.5 Assessment & Plan DIAGNOSIS/ASSESSMENT Assessment & Plan ADRIENNE on CKD - vs Progression ,IV diuretics No emergent indication for dialysis.Will get a Temp HDC -may need to start dialysis if no improvemet in renal function and Edema Monitor , supportive care. Renal Bx Strict I/O, daily standing weight CKD stage 3b/4 -Reviewed records from Office . 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 Plan for Renal Bx- Not scheduled yet. Will get it at [facility] , dw Dr Torres, probably tomorrow Dyspnea with acute on chronic diastolic CHF and pleural effusion; Echo 12/23 with preserved LV systolic function. Stress test 12/23 without normal perfusion Proteinuria 2/2 DM and HTN. Pr/Cr 3584 , repeat was 24 Hr Ur Pr 7.7 gms . Renal Bx ordered HTN - Uncontrolled HTN , BP's in 200's systolic / Diastolic also significantly elevated Renal Doppler no e/o SHEFALI . During his recent office visit he reported that he has been taking his meds sporadically . Edema - chronic with worsening Renal Calculus- per pt report x 1 approx 10 years ago,, CT in 2017 . Left-sided nephrolithiasis, nonobstructive. diabetes mellitus type 2- Uncontrolled in past, recent A1C 7.2 per pt, pt reports PCP titrating down Diabetes meds COMMENT/RELEVANT DATA Meds Current Medications Medications (Trade) Dose Ordered Sig/Zeyad Start Time Stop Time Status Last Admin Dose Admin Acetaminophen (Tylenol) 650 mg PRN Q4HRS PRN 11/28/21 20:15 11/28/21 20:18 DC Acetaminophen/ Hydrocodone Bitart (Lortab 5/325) 1 tab PRN Q4HRS PRN 11/28/21 18:45 Al Hydroxide/Mg Hydroxide (Mylanta Plus Xs) 30 ml PRN Q3HRS PRN 11/28/21 18:45 Amlodipine Besylate (Norvasc) 10 mg DAILY 11/28/21 18:30 11/29/21 08:27 10 MG Atenolol (Tenormin) 50 mg DAILY 11/28/21 18:30 11/29/21 12:51 DC 11/29/21 08:27 50 MG Dextrose (Dextrose 50%-Water Syringe) 12.5 gm PRN Q15MIN PRN 11/28/21 19:00 UNV Dextrose (Iv Dextrose 5%) 250 ml PRN Q15MIN PRN 11/28/21 19:00 Enoxaparin Sodium (Lovenox 30mg Syringe) 30 mg Q24H 11/28/21 21:00 11/28/21 21:02 30 MG Furosemide (Lasix) 40 mg DAILY 11/29/21 09:00 11/29/21 08:27 40 MG Glimepiride (Amaryl) 2 mg DAILY 11/30/21 09:00 Hydralazine HCl (Apresoline Inj) 10 mg PRN Q4HRS PRN 11/28/21 19:00 Hydralazine HCl (Apresoline) 50 mg BID 11/29/21 21:00 11/29/21 14:20 DC Insulin Human Lispro (HumaLOG) 0-7 UNITS TIDWMEALS 11/29/21 08:00 11/29/21 11:51 3 UNITS Isosorbide Mononitrate (Imdur) 30 mg DAILY 11/29/21 14:30 UNV Magnesium Hydroxide (Milk Of Magnesia) 2,400 mg PRN Q12HR PRN 11/28/21 18:45 Metoprolol Succinate (Toprol Xl) 25 mg DAILY 11/29/21 13:30 11/29/21 15:49 25 MG Morphine Sulfate (Morphine Sulfate) 4 mg PRN Q2HR PRN 11/28/21 20:15 11/29/21 11:09 DC Ondansetron HCl (Zofran) 4 mg PRN Q8HRS PRN 11/28/21 20:15 11/28/21 20:18 DC Zolpidem Tartrate (Ambien) 5 mg PRN QHS PRN 11/28/21 18:45 Lab Laboratory Tests Test 11/29/21 11:34 11/29/21 12:56 11/29/21 16:48 11/29/21 19:32 Glucose (Fingerstick) 199 mg/dL (70-99) 120 mg/dL (70-99) 181 mg/dL (70-99) Prothrombin Time 14.1 SEC (11.7-14.0) Prothromb Time International Ratio 1.1 (0.8-1.1) Activated Partial Thromboplast Time 53 SEC (24-38) Test 11/30/21 07:21 11/30/21 07:25 11/30/21 07:51 Glucose (Fingerstick) 95 mg/dL (70-99) Sodium Level 145 mmol/L (136-145) Potassium Level 3.8 mmol/L (3.5-5.1) Chloride Level 110 mmol/L (98-107) Carbon Dioxide Level 24 mmol/L (21-32) Anion Gap 11 (6-14) Blood Urea Nitrogen 56 mg/dL (8-26) Creatinine 4.5 mg/dL (0.7-1.3) Estimated GFR (Cockcroft-Gault) 13.6 Glucose Level 96 mg/dL (70-99) Calcium Level 8.5 mg/dL (8.5-10.1) SARS-CoV-2 Antigen (Rapid) Negative (NEGATIVE) Results All relevant outside records, renal labs, imaging studies, telemetry/EKG's were reviewed. Justicifation of Admission Dx: Justifications for Admission: Justification of Admission Dx: Yes CARSON HAWKINS MD Nov 30, 2021 09:38
[2021-11-30] MEDS ORDERED: MIDAZOLAM HCL/PF 5 MG/5 ML VIAL. ONE (12:32)
[2021-11-30] MEDS ORDERED: fentaNYL PF VIAL 250 MCG/5 ML VIAL ONE (12:32)
[2021-11-30] MEDS ORDERED: LIDOCAINE WITH 8.4% SOD BICARB 3 ML DISP.SYRIN. ONE ×2 (12:52→12:59)
--- NOTE | 2021-11-30 12:55 | PDOC ---
[facility] PROGRESS NOTE Date of Service DOS: DATE: 11/30/21 TIME: 12:54 Chief Complaint Chief Complaint Acute diastolic CHF exacerbation Acute on chronic renal failure DM2 HTN Plan: Consultation to cardiology At home patient taking Lasix 40 mg p.o. twice daily as needed Continue IV Lasix daily Echocardiogram from 12/2020 showed mild concentric left ventricular hypertrophy, PAP 25 mmHg, EF 55-60% Limited echocardiogram pending Fluid restriction to 2L daily, monitor urine output. Patient encouraged to elevate legs at night Consultation to nephrology Hold lisinopril IV hydralazine Resume home medications FEN - Cardiac diet PPX - Lovenox FULL CODE/patient surrogate decision-maker is his (Yenni Bates) Dispo - inpatient for above History of Present Illness History of Present Illness Patient is a 56-year-old male with past medical history CHF, presents to the ED with complaints of worsening shortness of breath over the past 2 weeks. He notes associated bilateral feet swelling. States he has taken his home Lasix with improvement. He was told recently by his electrical instrumentation technician only take his Lasix as needed. States last time he took Lasix was one day ago. Denies any chest pain. Labs on admission showed hemoglobin 9.5, hematocrit 28.2, BUN 54, creatinine 4.4, CBG 188, proBNP 8324. Chest x-ray on admission showed increase in small to moderate left pleural effusion with adjacent compressive atelectasis versus infiltrate. Will admit patient for further medical management. 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 Still with shortness of breath on exertion and significant lower extremity swelling on IV Lasix. 11/30: Swelling the same. N.p.o. for renal biopsy this morning. Still short of breath with exertion. Labs not improved. Vitals/I&O Vitals/I&O: Vital Signs Date Time Temp Pulse Resp B/P (MAP) Pulse Ox O2 Delivery O2 Flow Rate FiO2 11/30/21 11:00 98.1 61 18 176/81 (112) 96 Room Air 98.1 I & O 11/29/21 11/29/21 11/30/21 14:59 22:59 06:59 Output Total 800 ml 400 ml Balance -800 ml -400 ml Physical Exam Lungs: Clear Labs Labs: Laboratory Tests Test 11/29/21 12:56 11/29/21 16:48 11/29/21 19:32 11/30/21 07:21 Prothrombin Time 14.1 SEC (11.7-14.0) Prothromb Time International Ratio 1.1 (0.8-1.1) Activated Partial Thromboplast Time 53 SEC (24-38) Glucose (Fingerstick) 120 mg/dL (70-99) 181 mg/dL (70-99) 95 mg/dL (70-99) Test 11/30/21 07:25 11/30/21 07:51 11/30/21 11:02 Sodium Level 145 mmol/L (136-145) Potassium Level 3.8 mmol/L (3.5-5.1) Chloride Level 110 mmol/L (98-107) Carbon Dioxide Level 24 mmol/L (21-32) Anion Gap 11 (6-14) Blood Urea Nitrogen 56 mg/dL (8-26) Creatinine 4.5 mg/dL (0.7-1.3) Estimated GFR (Cockcroft-Gault) 13.6 Glucose Level 96 mg/dL (70-99) Calcium Level 8.5 mg/dL (8.5-10.1) SARS-CoV-2 Antigen (Rapid) Negative (NEGATIVE) Glucose (Fingerstick) 111 mg/dL (70-99) Assessment and Plan Assessmemt and Plan Problems Medical Problems: (1) Shortness of breath Status: Acute Comment Review of Relevant I have reviewed the following items rosanne (where applicable) has been applied. Medications: Current Medications Medications (Trade) Dose Ordered Sig/Zeyad Route PRN Reason Start Time Stop Time Status Last Admin Dose Admin Metoprolol Succinate (Toprol Xl) 25 mg DAILY PO 11/29/21 13:30 11/29/21 15:49 Isosorbide Mononitrate (Imdur) 30 mg DAILY PO 11/29/21 14:30 11/29/21 15:48 Justifications for Admission Other Justification Hypertensive emergency OC GUNTER MD Nov 30, 2021 12:55
[2021-11-30] MEDS ORDERED: GELATIN SPONGE SIZE 12-7MM SPONGE. ONE (12:57)
[2021-11-30] MEDS ORDERED: LIDOCAINE WITH 8.4% SOD BICARB 3 ML DISP.SYRIN. IJ ONE (13:15)
[2021-11-30] MEDS ORDERED: MIDAZOLAM HCL/PF 5 MG/5 ML VIAL. IV ONE (13:15)
[2021-11-30] MEDS ORDERED: fentaNYL PF VIAL 250 MCG/5 ML VIAL IV ONE (13:15)
[2021-11-30] MEDS: ISOSORBIDE MONONITRATE ER 30 MG TAB.ER.24H PO SCH (13:57)
[2021-11-30] MEDS: GLIMEPIRIDE 2 MG TABLET. PO SCH (13:57)
[2021-11-30] MEDS: METOPROLOL SUCC 24HR ER 25 MG TAB.ER.24H. PO SCH (13:58)
[2021-11-30] MEDS: FUROSEMIDE 40 MG/4 ML VIAL. IVP SCH (13:59)
[2021-11-30] MEDS: HYDROmorphone 2 MG/ML INJ. IVP PRN ×2 (14:57→19:26)
--- NOTE | 2021-11-30 15:08 | RAD ---
11/30/2021 1.Ultrasound-guided right renal biopsy 2. Ultrasound and fluoroscopically guided placement of right internal jugular temporary hemodialysis catheter INDICATION: Rapidly worsening renal function Consent: The procedures were explained in its entirety to the patient or the patients designated repr esentative by a member of the treatment team, including a discussion of the risks, benefits and commo nly accepted alternatives to the procedure, as well as the expected consequences of no therapy whatso ever. Discussion of the risks included, but was not limited to, those that are most frequent and th ose that are rare but possibly severe or life-threatening, as well as the possibility of unforeseen c omplications. Ultrasound-guided right kidney biopsy: Timeout procedure was performed. The right flank was prepped and draped using sterile barrier technique. 1% lidocaine was administered for local anesthesia. Under direct ultrasound guidance a 17-gauge was advanced to the posterior late ral renal cortex no oblique orientation. 3 18-gauge core biopsies were obtained and divided amongst f ormalin and Juve's solution. Gelfoam embolization of the biopsy tract was performed as the needle w as removed. Manual pressure was held. A pressure dressing was applied. Ultrasound demonstrates no sig nificant hemorrhage or other immediate complication. The patient was then placed in the supine positi on. Temporary dialysis catheter: All elements of maximal sterile barrier technique including the use of a cap, mask, sterile gown, aury rile gloves, large sterile sheet, appropriate hand hygiene, and 2% chlorhexidine for cutaneous antise psis (or acceptable alternative antiseptic per current guidelines) were followed for this procedure. Following informed consent, the patient was prepped and draped in the usual sterile fashion. Ultraso und interrogation of the right neck revealed patency and compressibility of the right internal jugula r vein. A 21-gauge micropuncture was then used to gain access to this vein under ultrasound guidance . A hard copy ultrasound image was recorded. A guidewire was advanced centrally over which, followin g dilatation, a temporary dialysis catheter was placed. The new catheter was found to flush and asp irate normally. The catheter was secured in place. Sterile dressings were applied. No immediate compl ications were identified. Sedation: The procedure was performed under conscious sedation including continuous cardiopulmonary m onitoring via a dedicated sedation nurse. [id number] sedation time: 45 minutes Fluoroscopy time: 0.2 minutes Dose area product 2 Terry centimeter squared. IMPRESSION: 1. Ultrasound guided right renal biopsy 2. Ultrasound and fluoroscopically guided placement of a right internal jugular temporary dialysis ca theter Electronically signed by: Gibson Holguin MD (11/30/2021 3:06 PM) [id number]
--- NOTE | 2021-11-30 23:37 | NUR ---
Unable to get pt's oral/axillary temperature for 2300 VITALS... pt does not have any complaints, and all other vitals were WNL. Blankets were applied going to reassess around midnight. Dr. De Souza was notified at 2314 and no orders were given.
[2021-12-01 03:00] VITALS: BP 153/76
[2021-12-01] MEDS: HYDROmorphone 2 MG/ML INJ. IVP PRN ×4 (06:17→20:02)
[2021-12-01 07:00] VITALS: BP 150/78
[2021-12-01] MEDS: INSULIN LISPRO 300 UNITS/3 ML VIAL. SQ SCH ×3 (08:00→17:00)
[2021-12-01 08:24] LABS: CALCIUM 8.7 mg/dL (8.5-10.1); CREATININE 5.8 mg/dL (0.7-1.3); GFR 10.1; POTASSIUM 4.5 mmol/L (3.5-5.1)
[2021-12-01] MEDS: ISOSORBIDE MONONITRATE ER 30 MG TAB.ER.24H PO SCH (09:00)
[2021-12-01] MEDS: GLIMEPIRIDE 2 MG TABLET. PO SCH (09:00)
[2021-12-01] MEDS: METOPROLOL SUCC 24HR ER 25 MG TAB.ER.24H. PO SCH (09:00)
[2021-12-01] MEDS: FUROSEMIDE 40 MG/4 ML VIAL. IVP SCH (09:00)
--- NOTE | 2021-12-01 09:16 | PDOC ---
DATE OF SERVICE DATE: 12/01/21 TIME: 09:13 SUBJECTIVE ROS Denies SOB S/P Kidney Bx OBJECTIVE Vital Signs Vital Signs Date Time Temp Pulse Resp B/P (MAP) Pulse Ox O2 Delivery O2 Flow Rate FiO2 12/01/21 08:00 Room Air 12/01/21 07:00 98.3 62 16 150/78 (102) 91 98.3 11/30/21 13:33 2.0 I & 0 Intake and Output 12/01/21 07:00 Output Total 500 ml Balance -500 ml Output Urine Total 500 ml PHYSICAL EXAM Physical Exam General: No acute distress HEENT: Atraumatic, Mucous membr. moist/pink, On RA Neck supple Lungs: Clear to auscultation, non labored Heart: Regular rate Abdomen: Soft, No tenderness Extremities: Bilat LE edema +, Skin: No significant lesion, No rash Neuro: grossly normal Psych/Mental Status: Mental status NL, Mood NL No Mercado DIAGNOSIS/ASSESSMENT Assessment & Plan ADRIENNE on CKD - vs Progression ,worsening rnal function. Will start Dialysis today . Discussed orderes with KADEN Monitor , supportive care. Strict I/O, daily standing weight Bx will help to determine if any chance of recovery Access - Temp HDC . Will Need Permacath Next week and OP chair time at [place] CKD stage 3b/4 -Reviewed records from Office . Seen by LEPIDOPTERIST on 10/31/2021 Baseline Cr 1.8-1.9 went up to 2.2 since hospitalization i December 2020 with Increase to 3.53 in Sep 2021 . Renal Bx on 11/30, pending results Anemia- Hgb Ordered as Post Bx . Results back Hgb stable Monitor closely. Dyspnea with acute on chronic diastolic CHF and pleural effusion; Echo 12/23 with preserved LV systolic function. Stress test 12/23 without normal perfusion Proteinuria 2/2 DM and HTN. Pr/Cr 3584 , repeat was 24 Hr Ur Pr 7.7 gms . Renal Bx on 11/30, pending results HTN - Uncontrolled HTN , BP's in 200's systolic / Diastolic also significantly elevated Renal Doppler no e/o SHEFALI . During his recent office visit he reported that he has been taking his meds sporadically . Edema - chronic with worsening , start dialysis today Renal Calculus- per pt report x 1 approx 10 years ago,, CT in 2017 . Left-sided nephrolithiasis, nonobstructive. diabetes mellitus type 2- Uncontrolled in past, recent A1C 7.2 per pt, pt reports PCP titrating down Diabetes meds COMMENT/RELEVANT DATA Meds Current Medications Medications (Trade) Dose Ordered Sig/Zeyad Start Time Stop Time Status Last Admin Dose Admin Acetaminophen (Tylenol) 650 mg PRN Q4HRS PRN 11/28/21 20:15 11/28/21 20:18 DC Acetaminophen/ Hydrocodone Bitart (Lortab 5/325) 1 tab PRN Q4HRS PRN 11/28/21 18:45 11/30/21 13:57 1 TAB Al Hydroxide/Mg Hydroxide (Mylanta Plus Xs) 30 ml PRN Q3HRS PRN 11/28/21 18:45 Amlodipine Besylate (Norvasc) 10 mg DAILY 11/28/21 18:30 11/30/21 13:58 10 MG Atenolol (Tenormin) 50 mg DAILY 11/28/21 18:30 11/29/21 12:51 DC 11/29/21 08:27 50 MG Cefazolin Sodium/ Dextrose 50 ml @ As Directed STK-MED ONCE 11/30/21 12:35 11/30/21 15:51 DC Dextrose (Dextrose 50%-Water Syringe) 12.5 gm PRN Q15MIN PRN 11/28/21 19:00 UNV Dextrose (Iv Dextrose 5%) 250 ml PRN Q15MIN PRN 11/28/21 19:00 Enoxaparin Sodium (Lovenox 30mg Syringe) 30 mg Q24H 11/28/21 21:00 11/30/21 17:48 DC 11/28/21 21:02 30 MG Fentanyl Citrate (Fentanyl 5ml Vial) 250 mcg STK-MED ONCE 11/30/21 12:32 11/30/21 15:50 DC Furosemide (Lasix) 40 mg DAILY 11/29/21 09:00 11/30/21 13:59 40 MG Gelatin (Gelfoam Size 12-7mm) 1 each STK-MED ONCE 11/30/21 12:57 11/30/21 15:51 DC Glimepiride (Amaryl) 2 mg DAILY 11/30/21 09:00 11/30/21 13:57 2 MG Heparin Sodium (Porcine) (Heparin Sodium) 5,000 unit Q12HR 12/01/21 21:00 Hydralazine HCl (Apresoline Inj) 10 mg PRN Q4HRS PRN 11/28/21 19:00 Hydralazine HCl (Apresoline) 50 mg BID 11/29/21 21:00 11/29/21 14:20 DC Hydromorphone HCl (Dilaudid) 1 mg PRN Q3HRS PRN 11/30/21 14:30 12/01/21 06:17 1 MG Insulin Human Lispro (HumaLOG) 0-7 UNITS TIDWMEALS 11/29/21 08:00 11/29/21 11:51 3 UNITS Isosorbide Mononitrate (Imdur) 30 mg DAILY 11/29/21 14:30 UNV Lidocaine HCl (Buffered Lidocaine 1%) 3 ml STK-MED ONCE 11/30/21 12:59 11/30/21 15:51 DC Magnesium Hydroxide (Milk Of Magnesia) 2,400 mg PRN Q12HR PRN 11/28/21 18:45 Metoprolol Succinate (Toprol Xl) 25 mg DAILY 11/29/21 13:30 11/30/21 13:58 25 MG Midazolam HCl (Versed) 5 mg STK-MED ONCE 11/30/21 12:32 11/30/21 15:50 DC Morphine Sulfate (Morphine Sulfate) 4 mg PRN Q2HR PRN 11/28/21 20:15 11/29/21 11:09 DC Ondansetron HCl (Zofran) 4 mg PRN Q8HRS PRN 11/28/21 20:15 11/28/21 20:18 DC Zolpidem Tartrate (Ambien) 5 mg PRN QHS PRN 11/28/21 18:45 Lab Laboratory Tests Test 11/30/21 11:02 11/30/21 16:51 11/30/21 20:09 12/01/21 06:00 Glucose (Fingerstick) 111 mg/dL (70-99) 142 mg/dL (70-99) 164 mg/dL (70-99) Sodium Level 144 mmol/L (136-145) Potassium Level 4.5 mmol/L (3.5-5.1) Chloride Level 108 mmol/L (98-107) Carbon Dioxide Level 22 mmol/L (21-32) Anion Gap 14 (6-14) Blood Urea Nitrogen 63 mg/dL (8-26) Creatinine 5.8 mg/dL (0.7-1.3) Estimated GFR (Cockcroft-Gault) 10.1 Glucose Level 145 mg/dL (70-99) Calcium Level 8.7 mg/dL (8.5-10.1) Test 12/01/21 07:15 Glucose (Fingerstick) 152 mg/dL (70-99) Results All relevant outside records, renal labs, imaging studies, telemetry/EKG's were reviewed. Justicifation of Admission Dx: Justifications for Admission: Justification of Admission Dx: Yes CARSON HAWKINS MD Dec 01, 2021 09:16
[2021-12-01 09:57] LABS: HEMOGLOBIN 8.9 g/dL (13.0-17.5); RED BLOOD COUNT 3.21 x10^6/uL (4.30-5.70); WHITE BLOOD COUNT 11.4 x10^3/uL (4.0-11.0)
--- NOTE | 2021-12-01 10:14 | PDOC ---
CARDIO Progress Notes Date and Time Date of Service 12/01/2021 Time of Evaluation 0945 Subjective Subjective: No Chest Pain, No shortness of breath, No Palpitations Vitals Vitals Vital Signs Date Time Temp Pulse Resp B/P (MAP) Pulse Ox O2 Delivery O2 Flow Rate FiO2 12/01/21 08:00 Room Air 12/01/21 07:00 98.3 62 16 150/78 (102) 91 98.3 11/30/21 13:33 2.0 Weight Weight [ ] Input and Output Intake and Output Intake and Output 12/01/21 07:00 Output Total 500 ml Balance -500 ml Output Urine Total 500 ml Laboratory Labs Laboratory Tests Test 11/30/21 11:02 11/30/21 16:51 11/30/21 20:09 12/01/21 06:00 Glucose (Fingerstick) 111 mg/dL (70-99) 142 mg/dL (70-99) 164 mg/dL (70-99) White Blood Count 11.4 x10^3/uL (4.0-11.0) Red Blood Count 3.21 x10^6/uL (4.30-5.70) Hemoglobin 8.9 g/dL (13.0-17.5) Hematocrit 27.0 % (39.0-53.0) Mean Corpuscular Volume 84 fL (79-100) Mean Corpuscular Hemoglobin 28 pg (25-35) Mean Corpuscular Hemoglobin Concent 33 g/dL (31-37) Red Cell Distribution Width 16.0 % (11.5-14.5) Platelet Count 159 x10^3/uL (140-400) Sodium Level 144 mmol/L (136-145) Potassium Level 4.5 mmol/L (3.5-5.1) Chloride Level 108 mmol/L (98-107) Carbon Dioxide Level 22 mmol/L (21-32) Anion Gap 14 (6-14) Blood Urea Nitrogen 63 mg/dL (8-26) Creatinine 5.8 mg/dL (0.7-1.3) Estimated GFR (Cockcroft-Gault) 10.1 Glucose Level 145 mg/dL (70-99) Calcium Level 8.7 mg/dL (8.5-10.1) Test 12/01/21 07:15 Glucose (Fingerstick) 152 mg/dL (70-99) Physical Exam HEENT: Neck Supple W Full Motion Chest: Symmetric LUNGS: Other (left basilar crackles) Heart: RRR (SR) Abdomen: Soft N/T Extremities: Other (2+ bilateral LE edema ) Neurology: alert, oriented, follow commands Assessment Assessment 1. Acute on chronic diastolic CHF and pleural effusion; r/t renal failure. Echo 12/23 with preserved LV systolic function. Stress test 12/23 without normal perfusion. Limited echo showed LVEF 60%, no WMA 2. Accelerated hypertensive; better 3. ADREINNE on CKD; Cr ^ 5.8. Renal biopsy planned. Temp HD cath to be placed 4. Diabetes, II 5. Hyperlipidemia 6. GERD Recommendations Avoid nephrotoxins HD to start today per nephrology Continue metoprolol, amlodipine, hydralazine, and Imdur No ACEi/ARB with [place] Supportive care Justicifation of Admission Dx: Justifications for Admission: Justification of Admission Dx: Yes DANE BABCOCK APRN Dec 01, 2021 10:14
[2021-12-01 11:00] VITALS: BP 155/78
[2021-12-01] MEDS ORDERED: DIALYSIS PATIENT. MC PRN ×2 (12:00)
[2021-12-01] MEDS ORDERED: IV NORMAL SALINE 1000ML BAG 1,000 ML IV PRN ×2 (12:00)
--- NOTE | 2021-12-01 12:16 | NUR ---
Patient's 0900 meds held d/t dialysis.
--- NOTE | 2021-12-01 14:20 | PDOC ---
[facility] PROGRESS NOTE Date of Service DOS: DATE: 12/01/21 TIME: 14:19 Chief Complaint Chief Complaint Acute diastolic CHF exacerbation Acute on chronic renal failure DM2 HTN Plan: Consultation to cardiology At home patient taking Lasix 40 mg p.o. twice daily as needed Continue IV Lasix daily Echocardiogram from 12/2020 showed mild concentric left ventricular hypertrophy, PAP 25 mmHg, EF 55-60% Limited echocardiogram pending Fluid restriction to 2L daily, monitor urine output. Patient encouraged to elevate legs at night Consultation to nephrology Hold lisinopril IV hydralazine Resume home medications FEN - Cardiac diet PPX - Lovenox FULL CODE/patient surrogate decision-maker is his (Yenni Bates) Dispo - inpatient for above History of Present Illness History of Present Illness Patient is a 56-year-old male with past medical history CHF, presents to the ED with complaints of worsening shortness of breath over the past 2 weeks. He notes associated bilateral feet swelling. States he has taken his home Lasix with improvement. He was told recently by his drivers' cash clerk only take his Lasix as needed. States last time he took Lasix was one day ago. Denies any chest pain. Labs on admission showed hemoglobin 9.5, hematocrit 28.2, BUN 54, creatinine 4.4, CBG 188, proBNP 8324. Chest x-ray on admission showed increase in small to moderate left pleural effusion with adjacent compressive atelectasis versus infiltrate. Will admit patient for further medical management. 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 Still with shortness of breath on exertion and significant lower extremity swelling on IV Lasix. 11/30: Swelling the same. N.p.o. for renal biopsy this morning. Still short of breath with exertion. Labs not improved. 12/01: Having some back pain right renal biopsy site. States Dilaudid 1 mg is not cutting it for pain. Renal labs worsen. Temporary dialysis catheter had been placed and is going for dialysis today. Overall swelling has worsened a little bit shortness of breath is little worse as well. Vitals/I&O Vitals/I&O: Vital Signs Date Time Temp Pulse Resp B/P (MAP) Pulse Ox O2 Delivery O2 Flow Rate FiO2 12/01/21 12:35 18 Room Air 4/29/22 11:00 98.0 66 155/78 (103) 94 98.0 11/30/21 13:33 2.0 I & O 11/30/21 11/30/21 12/01/21 15:00 23:00 07:00 Output Total 0 ml 500 ml Balance 0 ml -500 ml Physical Exam Lungs: Clear Labs Labs: Laboratory Tests Test 11/30/21 16:51 11/30/21 20:09 12/01/21 06:00 12/01/21 07:15 Glucose (Fingerstick) 142 mg/dL (70-99) 164 mg/dL (70-99) 152 mg/dL (70-99) White Blood Count 11.4 x10^3/uL (4.0-11.0) Red Blood Count 3.21 x10^6/uL (4.30-5.70) Hemoglobin 8.9 g/dL (13.0-17.5) Hematocrit 27.0 % (39.0-53.0) Mean Corpuscular Volume 84 fL (79-100) Mean Corpuscular Hemoglobin 28 pg (25-35) Mean Corpuscular Hemoglobin Concent 33 g/dL (31-37) Red Cell Distribution Width 16.0 % (11.5-14.5) Platelet Count 159 x10^3/uL (140-400) Sodium Level 144 mmol/L (136-145) Potassium Level 4.5 mmol/L (3.5-5.1) Chloride Level 108 mmol/L (98-107) Carbon Dioxide Level 22 mmol/L (21-32) Anion Gap 14 (6-14) Blood Urea Nitrogen 63 mg/dL (8-26) Creatinine 5.8 mg/dL (0.7-1.3) Estimated GFR (Cockcroft-Gault) 10.1 Glucose Level 145 mg/dL (70-99) Calcium Level 8.7 mg/dL (8.5-10.1) Hepatitis B Surface Antigen Nonreactive (Nonreactive) Hepatitis B Surface Antibody Nonreactive Test 12/01/21 11:26 Glucose (Fingerstick) 177 mg/dL (70-99) Assessment and Plan Assessmemt and Plan Problems Medical Problems: (1) Shortness of breath Status: Acute Comment Review of Relevant I have reviewed the following items rosanne (where applicable) has been applied. Medications: Current Medications Medications (Trade) Dose Ordered Sig/Zeyad Route PRN Reason Start Time Stop Time Status Last Admin Dose Admin Hydromorphone HCl (Dilaudid) 1 mg PRN Q3HRS PRN IVP PAIN 11/30/21 14:30 12/01/21 13:43 DC 12/01/21 12:05 Justifications for Admission Other Justification Hypertensive emergency OC GUNTER MD Dec 01, 2021 14:20
[2021-12-01 17:00] VITALS: BP 159/79
[2021-12-01 19:59] VITALS: BP 160/66
[2021-12-01] MEDS: HEPARIN for SUB-Q USE 5,000 UNIT/ML VIAL. SQ SCH (20:11)
[2021-12-01 23:14] VITALS: BP 149/73
[2021-12-02 03:50] VITALS: BP 169/71
[2021-12-02] MEDS: HYDROmorphone 2 MG/ML INJ. IVP PRN ×4 (03:57→19:20)
[2021-12-02 06:14] LABS: HEMATOCRIT 26.4 % (39.0-53.0); HEMOGLOBIN 8.9 g/dL (13.0-17.5); RED BLOOD COUNT 3.17 x10^6/uL (4.30-5.70); RED CELL DISTRIBUTION WIDTH 16.2 % (11.5-14.5); WHITE BLOOD COUNT 16.9 x10^3/uL (4.0-11.0)
[2021-12-02 06:34] LABS: CALCIUM 8.7 mg/dL (8.5-10.1); CREATININE 5.9 mg/dL (0.7-1.3); GFR 9.9; POTASSIUM 4.2 mmol/L (3.5-5.1)
[2021-12-02 07:16] VITALS: BP 165/62
[2021-12-02] MEDS: INSULIN LISPRO 300 UNITS/3 ML VIAL. SQ SCH ×3 (08:00→17:00)
[2021-12-02] MEDS: FUROSEMIDE 40 MG/4 ML VIAL. IVP SCH (09:37)
[2021-12-02] MEDS: GLIMEPIRIDE 2 MG TABLET. PO SCH (09:38)
[2021-12-02] MEDS: METOPROLOL SUCC 24HR ER 25 MG TAB.ER.24H. PO SCH (09:38)
[2021-12-02] MEDS: ISOSORBIDE MONONITRATE ER 30 MG TAB.ER.24H PO SCH (09:39)
[2021-12-02] MEDS: HEPARIN for SUB-Q USE 5,000 UNIT/ML VIAL. SQ SCH ×2 (09:50→21:21)
--- NOTE | 2021-12-02 10:19 | PDOC ---
CARDIOLOGY PROGRESS NOTE SUBJECTIVE: No new issues overnight. Denies any chest pain or dyspnea. Resting comfortably in bed. at bedside. He ate well. OBJECTIVE: Vital Signs/I&O: Vital Signs Date Time Temp Pulse Resp B/P (MAP) Pulse Ox O2 Delivery O2 Flow Rate FiO2 12/02/21 09:39 70 165/62 12/02/21 07:16 99.6 16 92 Room Air 99.6 I & O 12/01/21 12/01/21 12/02/21 15:00 23:00 07:00 Intake Total 150 ml 50 ml Output Total 100 ml Balance 150 ml -50 ml Objective: GEN.: No apparent distress. Alert and oriented. HEENT: Head is normocephalic, atraumatic NECK: Supple. LUNGS: Clear to auscultation. HEART: RRR, S1, S2 present. Peripheral pulses intact ABDOMEN: Soft, nontender. Positive bowel sounds. EXTREMITIES: Without any cyanosis. 1+ edema. Bilateral legs look tanned but cannot rule out venous stasis dermatitis NEUROLOGIC: Normal speech, normal tone PSYCHIATRIC: Normal affect, normal mood. SKIN: No ulcerations CURRENT MEDICATIONS: hydral, imdur, amlodipine, toprol XL DIAGNOSTIC TESTING: labs reviewed. Labs: Laboratory Tests 12/02/21 05:40 Laboratory Tests Test 12/01/21 11:26 12/01/21 17:20 12/01/21 20:26 12/02/21 05:40 Glucose (Fingerstick) 177 mg/dL (70-99) H 84 mg/dL (70-99) 96 mg/dL (70-99) White Blood Count 16.9 x10^3/uL (4.0-11.0) H Red Blood Count 3.17 x10^6/uL (4.30-5.70) L Hemoglobin 8.9 g/dL (13.0-17.5) L Hematocrit 26.4 % (39.0-53.0) L Mean Corpuscular Volume 83 fL (79-100) Mean Corpuscular Hemoglobin 28 pg (25-35) Mean Corpuscular Hemoglobin Concent 34 g/dL (31-37) Red Cell Distribution Width 16.2 % (11.5-14.5) H Platelet Count 137 x10^3/uL (140-400) L Sodium Level 138 mmol/L (136-145) Potassium Level 4.2 mmol/L (3.5-5.1) Chloride Level 103 mmol/L (98-107) Carbon Dioxide Level 25 mmol/L (21-32) Anion Gap 10 (6-14) Blood Urea Nitrogen 46 mg/dL (8-26) H Creatinine 5.9 mg/dL (0.7-1.3) H Estimated GFR (Cockcroft-Gault) 9.9 Glucose Level 73 mg/dL (70-99) Calcium Level 8.7 mg/dL (8.5-10.1) Test 12/02/21 08:03 Glucose (Fingerstick) 70 mg/dL (70-99) ASSESSMENT: 1. ADRIENNE 2. Diastolic HF 3. HTN PLAN: 1. Continue current medical therapy. Continue HD. 2. Prior ischemic w/u has been negative. Supportive care. Justicifation of Admission Dx: Justifications for Admission: Justification of Admission Dx: Yes JUAN MANUEL OLGUIN MD Dec 02, 2021 10:19
--- NOTE | 2021-12-02 11:02 | PDOC ---
[facility] PROGRESS NOTE Date of Service DOS: DATE: 12/02/21 TIME: 09:56 Chief Complaint Chief Complaint Acute diastolic CHF exacerbation Acute on chronic renal failure DM2 HTN Plan: Fluid restriction to 2L daily, monitor urine output. Patient encouraged to elevate legs at night Consultation to nephrology Hold lisinopril IV hydralazine Resume home medications FEN - Cardiac diet PPX - Heparin FULL CODE/patient surrogate decision-maker is his (Yenni Bates) Dispo - inpatient for above History of Present Illness History of Present Illness Patient is a 56-year-old male with past medical history CHF, presents to the ED with complaints of worsening shortness of breath over the past 2 weeks. He notes associated bilateral feet swelling. States he has taken his home Lasix with improvement. He was told recently by his stapler hand only take his Lasix as needed. States last time he took Lasix was one day ago. Denies any chest pain. Labs on admission showed hemoglobin 9.5, hematocrit 28.2, BUN 54, creatinine 4.4, CBG 188, proBNP 8324. Chest x-ray on admission showed increase in small to moderate left pleural effusion with adjacent compressive atelectasis versus infiltrate. Will admit patient for further medical management. 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 Still with SOB on exertion and significant lower extremity swelling on IV Lasix. 11/30: Swelling the same. N.p.o. for renal biopsy this morning. Still short of breath with exertion. Labs not improved. 12/01: Having some back pain right renal biopsy site. States Dilaudid 1 mg is not cutting it for pain. Renal labs worsen. Temporary dialysis catheter had been placed and is going for dialysis today. Overall swelling has worsened a little bit shortness of breath is little worse as well. 12/02: WBC 16.9, Hb 8.9, platelets 137. Tolerated short dialysis run plan for dialysis again today. He still complaining of some right back pain and some right hip pain after renal biopsy. Vitals/I&O Vitals/I&O: Vital Signs Date Time Temp Pulse Resp B/P (MAP) Pulse Ox O2 Delivery O2 Flow Rate FiO2 12/02/21 09:39 70 165/62 12/02/21 07:16 99.6 16 92 Room Air 99.6 I & O 12/01/21 12/01/21 12/02/21 15:00 23:00 07:00 Intake Total 150 ml 50 ml Output Total 100 ml Balance 150 ml -50 ml Physical Exam General: Alert Lungs: Clear Labs Labs: Laboratory Tests Test 12/01/21 11:26 12/01/21 17:20 12/01/21 20:26 12/02/21 05:40 Glucose (Fingerstick) 177 mg/dL (70-99) 84 mg/dL (70-99) 96 mg/dL (70-99) White Blood Count 16.9 x10^3/uL (4.0-11.0) Red Blood Count 3.17 x10^6/uL (4.30-5.70) Hemoglobin 8.9 g/dL (13.0-17.5) Hematocrit 26.4 % (39.0-53.0) Mean Corpuscular Volume 83 fL (79-100) Mean Corpuscular Hemoglobin 28 pg (25-35) Mean Corpuscular Hemoglobin Concent 34 g/dL (31-37) Red Cell Distribution Width 16.2 % (11.5-14.5) Platelet Count 137 x10^3/uL (140-400) Sodium Level 138 mmol/L (136-145) Potassium Level 4.2 mmol/L (3.5-5.1) Chloride Level 103 mmol/L (98-107) Carbon Dioxide Level 25 mmol/L (21-32) Anion Gap 10 (6-14) Blood Urea Nitrogen 46 mg/dL (8-26) Creatinine 5.9 mg/dL (0.7-1.3) Estimated GFR (Cockcroft-Gault) 9.9 Glucose Level 73 mg/dL (70-99) Calcium Level 8.7 mg/dL (8.5-10.1) Test 12/02/21 08:03 Glucose (Fingerstick) 70 mg/dL (70-99) Assessment and Plan Assessmemt and Plan Problems Medical Problems: (1) Shortness of breath Status: Acute Comment Review of Relevant I have reviewed the following items rosanne (where applicable) has been applied. Medications: Current Medications Medications (Trade) Dose Ordered Sig/Zeyad Route PRN Reason Start Time Stop Time Status Last Admin Dose Admin Heparin Sodium (Porcine) (Heparin Sodium) 5,000 unit Q12HR SQ 12/01/21 21:00 12/02/21 09:50 Hydromorphone HCl (Dilaudid) 2 mg PRN Q3HRS PRN IVP MODERATE TO SEVERE PAIN 12/01/21 13:45 12/02/21 03:57 Justifications for Admission Other Justification Hypertensive emergency OC GUNTER MD Dec 02, 2021 11:02
[2021-12-02] MEDS ORDERED: IV NORMAL SALINE 1000ML BAG 1,000 ML IV PRN ×2 (11:15)
[2021-12-02] MEDS ORDERED: DIALYSIS PATIENT. MC PRN (11:15)
--- NOTE | 2021-12-02 13:01 | PDOC ---
DATE OF SERVICE DATE: 12/02/21 TIME: 12:54 SUBJECTIVE ROS Denies SOB. No N/V. No problems on Dialyssi yesterday Seen during dialysis today 2nd treatment, No complaints OBJECTIVE Vital Signs Vital Signs Date Time Temp Pulse Resp B/P (MAP) Pulse Ox O2 Delivery O2 Flow Rate FiO2 12/02/21 11:06 17 Room Air 12/02/21 09:39 70 165/62 12/02/21 07:16 99.6 92 99.6 I & 0 Intake and Output 12/02/21 07:00 Intake Total 200 ml Output Total 100 ml Balance 100 ml Intake Oral 200 ml Output Urine Total 100 ml # Voids 1 PHYSICAL EXAM Physical Exam General: No acute distress HEENT: Atraumatic, Mucous membr. moist/pink, On RA Neck supple Lungs: Clear to auscultation, non labored Heart: Regular rate Abdomen: Soft, No tenderness Extremities: Bilat LE edema +, Skin: No significant lesion, No rash Neuro: grossly normal Psych/Mental Status: Mental status NL, Mood NL No Mercado DIAGNOSIS/ASSESSMENT Assessment & Plan Likely New Onset ESRD - Based on on Renal Bx 11/30/2021 - Prelim Results CW Advanced diabetic changes with significant Glomerulosclerosis. Requiring dialysis, started on 12/01, 2nd treatment today. Seen during dialysis, Tolerating well . Continue as ordered. Reid ALFONSO Access Temp HDC. Replace with Tunneled HDC on Saturday and PAMELA for OP chair time @ [facility] UNIT . Anemia Post Bx Hgb stable Dyspnea with acute on chronic diastolic CHF and pleural effusion; Echo 12/23 with preserved LV systolic function. Stress test 12/23 without normal perfusion Proteinuria 2/2 DM and HTN. Pr/Cr 3584 , repeat was 24 Hr Ur Pr 7.7 gms . Prelim - Bx- advanced Diabetic Nephrosclerosis HTN - Uncontrolled HTN , BP's in 200's systolic / Diastolic also significantly elevated Renal Doppler no e/o SHEFALI . During his recent office visit he reported that he has been taking his meds sporadically . Edema - chronic with worsening , start dialysis today Renal Calculus- per pt report x 1 approx 10 years ago,, CT in 2017 . Left-sided nephrolithiasis, nonobstructive. diabetes mellitus type 2- Uncontrolled in past, recent A1C 7.2 per pt, pt reports PCP titrating down Diabetes meds COMMENT/RELEVANT DATA Meds Current Medications Medications (Trade) Dose Ordered Sig/Zeyad Start Time Stop Time Status Last Admin Dose Admin Acetaminophen (Tylenol) 650 mg PRN Q4HRS PRN 11/28/21 20:15 11/28/21 20:18 DC Acetaminophen/ Hydrocodone Bitart (Lortab 5/325) 1 tab PRN Q4HRS PRN 11/28/21 18:45 11/30/21 13:57 1 TAB Al Hydroxide/Mg Hydroxide (Mylanta Plus Xs) 30 ml PRN Q3HRS PRN 11/28/21 18:45 Amlodipine Besylate (Norvasc) 10 mg DAILY 11/28/21 18:30 12/02/21 09:39 10 MG Atenolol (Tenormin) 50 mg DAILY 11/28/21 18:30 11/29/21 12:51 DC 11/29/21 08:27 50 MG Cefazolin Sodium/ Dextrose 50 ml @ As Directed STK-MED ONCE 11/30/21 12:35 11/30/21 15:51 DC Dextrose (Dextrose 50%-Water Syringe) 12.5 gm PRN Q15MIN PRN 11/28/21 19:00 UNV Dextrose (Iv Dextrose 5%) 250 ml PRN Q15MIN PRN 11/28/21 19:00 Enoxaparin Sodium (Lovenox 30mg Syringe) 30 mg Q24H 11/28/21 21:00 11/30/21 17:48 DC 11/28/21 21:02 30 MG Fentanyl Citrate (Fentanyl 5ml Vial) 250 mcg STK-MED ONCE 11/30/21 12:32 11/30/21 15:50 DC Furosemide (Lasix) 40 mg DAILY 11/29/21 09:00 12/02/21 09:37 40 MG Gelatin (Gelfoam Size 12-7mm) 1 each STK-MED ONCE 11/30/21 12:57 11/30/21 15:51 DC Glimepiride (Amaryl) 2 mg DAILY 11/30/21 09:00 12/02/21 09:38 2 MG Heparin Sodium (Porcine) (Heparin Sodium) 5,000 unit Q12HR 12/01/21 21:00 12/02/21 09:50 5,000 UNIT Hydralazine HCl (Apresoline Inj) 10 mg PRN Q4HRS PRN 11/28/21 19:00 Hydralazine HCl (Apresoline) 50 mg BID 11/29/21 21:00 11/29/21 14:20 DC Hydromorphone HCl (Dilaudid) 2 mg PRN Q3HRS PRN 12/01/21 13:45 12/02/21 10:36 2 MG Info (PHARMACY MONITORING -- do not chart) 1 each PRN DAILY PRN 12/02/21 11:15 UNV Insulin Human Lispro (HumaLOG) 0-7 UNITS TIDWMEALS 11/29/21 08:00 12/01/21 12:14 3 UNITS Isosorbide Mononitrate (Imdur) 30 mg DAILY 11/29/21 14:30 UNV Lidocaine HCl (Buffered Lidocaine 1%) 3 ml STK-MED ONCE 11/30/21 12:59 11/30/21 15:51 DC Magnesium Hydroxide (Milk Of Magnesia) 2,400 mg PRN Q12HR PRN 11/28/21 18:45 Metoprolol Succinate (Toprol Xl) 25 mg DAILY 11/29/21 13:30 12/02/21 09:38 25 MG Midazolam HCl (Versed) 5 mg STK-MED ONCE 11/30/21 12:32 11/30/21 15:50 DC Morphine Sulfate (Morphine Sulfate) 4 mg PRN Q2HR PRN 11/28/21 20:15 11/29/21 11:09 DC Ondansetron HCl (Zofran) 4 mg PRN Q8HRS PRN 11/28/21 20:15 11/28/21 20:18 DC Sodium Chloride 1,000 ml @ 400 mls/hr Q2H30M PRN 12/02/21 11:15 12/02/21 23:14 Zolpidem Tartrate (Ambien) 5 mg PRN QHS PRN 11/28/21 18:45 Lab Laboratory Tests Test 12/01/21 17:20 12/01/21 20:26 12/02/21 05:40 12/02/21 08:03 Glucose (Fingerstick) 84 mg/dL (70-99) 96 mg/dL (70-99) 70 mg/dL (70-99) White Blood Count 16.9 x10^3/uL (4.0-11.0) Red Blood Count 3.17 x10^6/uL (4.30-5.70) Hemoglobin 8.9 g/dL (13.0-17.5) Hematocrit 26.4 % (39.0-53.0) Mean Corpuscular Volume 83 fL (79-100) Mean Corpuscular Hemoglobin 28 pg (25-35) Mean Corpuscular Hemoglobin Concent 34 g/dL (31-37) Red Cell Distribution Width 16.2 % (11.5-14.5) Platelet Count 137 x10^3/uL (140-400) Sodium Level 138 mmol/L (136-145) Potassium Level 4.2 mmol/L (3.5-5.1) Chloride Level 103 mmol/L (98-107) Carbon Dioxide Level 25 mmol/L (21-32) Anion Gap 10 (6-14) Blood Urea Nitrogen 46 mg/dL (8-26) Creatinine 5.9 mg/dL (0.7-1.3) Estimated GFR (Cockcroft-Gault) 9.9 Glucose Level 73 mg/dL (70-99) Calcium Level 8.7 mg/dL (8.5-10.1) Results All relevant outside records, renal labs, imaging studies, telemetry/EKG's were reviewed. Justicifation of Admission Dx: Justifications for Admission: Justification of Admission Dx: Yes CARSON HAWKINS MD Dec 02, 2021 13:01
[2021-12-02 16:00] VITALS: BP 158/60
[2021-12-02 19:00] VITALS: BP 170/68
[2021-12-02 22:47] VITALS: BP 140/61
[2021-12-03 03:07] VITALS: BP 172/69
[2021-12-03 06:47] VITALS: BP 169/70
[2021-12-03 07:58] LABS: BASO # 0.1 x10^3/uL (0.0-0.2); BASO % 0 % (0-3); EOS % 0 % (0-3); HEMATOCRIT 24.9 % (39.0-53.0); HEMOGLOBIN 8.3 g/dL (13.0-17.5); LYMPH # 0.8 x10^3/uL (1.0-4.8); LYMPH % 5 % (24-48); MEAN CORPUSCULAR HEMOGLOBIN 28 pg (25-35); MEAN CORPUSCULAR HGB CONC 33 g/dL (31-37); MEAN CORPUSCULAR VOLUME 84 fL (79-100); MONO % 13 % (0-9); NEUT # 12.4 x10^3/uL (1.8-7.7); NEUT % 81 % (31-73); PLATELET COUNT 119 x10^3/uL (140-400); RED BLOOD COUNT 2.99 x10^6/uL (4.30-5.70); RED CELL DISTRIBUTION WIDTH 15.9 % (11.5-14.5); WHITE BLOOD COUNT 15.2 x10^3/uL (4.0-11.0)
[2021-12-03] MEDS ORDERED: DEXTROSE 50% 25 GM / 50ML DISP.SYRIN. IV ONE (08:00)
[2021-12-03] MEDS: INSULIN LISPRO 300 UNITS/3 ML VIAL. SQ SCH ×3 (08:00→17:00)
[2021-12-03] MEDS ORDERED: DEXTROSE 50% 25 GM / 50ML DISP.SYRIN. IV PRN (08:15)
[2021-12-03 08:18] LABS: CALCIUM 8.6 mg/dL (8.5-10.1); CREATININE 5.6 mg/dL (0.7-1.3); GFR 10.5; POTASSIUM 4.1 mmol/L (3.5-5.1)
[2021-12-03] MEDS: GLIMEPIRIDE 2 MG TABLET. PO SCH (09:26)
[2021-12-03] MEDS: FUROSEMIDE 40 MG/4 ML VIAL. IVP SCH (09:26)
[2021-12-03] MEDS: ISOSORBIDE MONONITRATE ER 30 MG TAB.ER.24H PO SCH (09:27)
[2021-12-03] MEDS: METOPROLOL SUCC 24HR ER 25 MG TAB.ER.24H. PO SCH (09:28)
[2021-12-03] MEDS: HEPARIN for SUB-Q USE 5,000 UNIT/ML VIAL. SQ SCH ×2 (09:39→19:49)
[2021-12-03 10:34] LABS: % EOS 1 % (0-5); % LYMPHS 3 % (24-48); % MONOS 15 % (0-10); % SEGS 81 % (35-66); PLT ESTIMATE ADEQUATE (ADEQUATE)
[2021-12-03 11:00] VITALS: BP 163/69
--- NOTE | 2021-12-03 12:55 | PDOC ---
DATE OF SERVICE DATE: 12/03/21 TIME: 12:53 SUBJECTIVE ROS Denies SOB. No N/V. at bedside OBJECTIVE Vital Signs Vital Signs Date Time Temp Pulse Resp B/P (MAP) Pulse Ox O2 Delivery O2 Flow Rate FiO2 12/03/21 11:00 99.8 80 19 163/69 (100) 91 Room Air 99.8 I & 0 Intake and Output 12/03/21 07:00 Intake Total 220 ml Balance 220 ml Intake Oral 220 ml PHYSICAL EXAM Physical Exam General: No acute distress HEENT: Atraumatic, Mucous membr. moist/pink, On RA Neck supple Lungs: Clear to auscultation, non labored Heart: Regular rate Abdomen: Soft, No tenderness Extremities: Bilat LE edema +, Skin: No significant lesion, No rash Neuro: grossly normal Psych/Mental Status: Mental status NL, Mood NL No Mercado DIAGNOSIS/ASSESSMENT Assessment & Plan New Onset ESRD - Renal Bx 11/30/2021 - Prelim Results - Advanced diabetic changes with significant Glomerulosclerosis. started on 12/01, 2nd treatment 12/02 Currently No indication for dialysis today . Discussed about PD and Transplant with patient had the same questions again today. Explained to her as well Access Temp HDC. Replace with Tunneled HDC on Saturday and for OP chair time @ [facility] UNIT . Anemia Post Bx Hgb stable Dyspnea with acute on chronic diastolic CHF and pleural effusion; Echo 12/23 with preserved LV systolic function. Stress test 12/23 without normal perfusion Proteinuria 2/2 DM and HTN. Pr/Cr 3584 , repeat was 24 Hr Ur Pr 7.7 gms . Prelim - Bx- advanced Diabetic Nephrosclerosis HTN - Uncontrolled HTN , BP's in 200's systolic / Diastolic also significantly elevated Renal Doppler no e/o SHEFALI . During his recent office visit he reported that he has been taking his meds sporadically . Edema - chronic with worsening , start dialysis today Renal Calculus- per pt report x 1 approx 10 years ago,, CT in 2017 . Left-sided nephrolithiasis, nonobstructive. diabetes mellitus type 2- Uncontrolled in past, recent A1C 7.2 per pt, pt reports PCP titrating down Diabetes meds COMMENT/RELEVANT DATA Meds Current Medications Medications (Trade) Dose Ordered Sig/Zeyad Start Time Stop Time Status Last Admin Dose Admin Acetaminophen (Tylenol) 650 mg PRN Q4HRS PRN 11/28/21 20:15 11/28/21 20:18 DC Acetaminophen/ Hydrocodone Bitart (Lortab 5/325) 1 tab PRN Q4HRS PRN 11/28/21 18:45 11/30/21 13:57 1 TAB Al Hydroxide/Mg Hydroxide (Mylanta Plus Xs) 30 ml PRN Q3HRS PRN 11/28/21 18:45 Amlodipine Besylate (Norvasc) 10 mg DAILY 11/28/21 18:30 12/03/21 09:27 10 MG Atenolol (Tenormin) 50 mg DAILY 11/28/21 18:30 11/29/21 12:51 DC 11/29/21 08:27 50 MG Cefazolin Sodium/ Dextrose 50 ml @ As Directed STK-MED ONCE 11/30/21 12:35 11/30/21 15:51 DC Dextrose (Dextrose 50%-Water Syringe) 12.5 gm PRN Q15MIN PRN 12/03/21 08:15 12/03/21 07:55 12.5 GM Dextrose (Iv Dextrose 5%) 250 ml PRN Q15MIN PRN 11/28/21 19:00 Enoxaparin Sodium (Lovenox 30mg Syringe) 30 mg Q24H 11/28/21 21:00 11/30/21 17:48 DC 11/28/21 21:02 30 MG Fentanyl Citrate (Fentanyl 5ml Vial) 250 mcg STK-MED ONCE 11/30/21 12:32 11/30/21 15:50 DC Furosemide (Lasix) 40 mg DAILY 11/29/21 09:00 12/03/21 09:26 40 MG Gelatin (Gelfoam Size 12-7mm) 1 each STK-MED ONCE 11/30/21 12:57 11/30/21 15:51 DC Glimepiride (Amaryl) 2 mg DAILY 11/30/21 09:00 12/03/21 09:26 2 MG Heparin Sodium (Porcine) (Heparin Sodium) 5,000 unit Q12HR 12/01/21 21:00 12/03/21 09:39 5,000 UNIT Hydralazine HCl (Apresoline Inj) 10 mg PRN Q4HRS PRN 11/28/21 19:00 12/03/21 02:41 10 MG Hydralazine HCl (Apresoline) 50 mg BID 11/29/21 21:00 11/29/21 14:20 DC Hydromorphone HCl (Dilaudid) 2 mg PRN Q3HRS PRN 12/01/21 13:45 12/02/21 19:20 2 MG Info (PHARMACY MONITORING -- do not chart) 1 each PRN DAILY PRN 12/02/21 11:15 UNV Insulin Human Lispro (HumaLOG) 0-7 UNITS TIDWMEALS 11/29/21 08:00 12/01/21 12:14 3 UNITS Isosorbide Mononitrate (Imdur) 30 mg DAILY 11/29/21 14:30 UNV Lidocaine HCl (Buffered Lidocaine 1%) 3 ml STK-MED ONCE 11/30/21 12:59 11/30/21 15:51 DC Magnesium Hydroxide (Milk Of Magnesia) 2,400 mg PRN Q12HR PRN 11/28/21 18:45 Metoprolol Succinate (Toprol Xl) 25 mg DAILY 11/29/21 13:30 12/03/21 09:28 25 MG Midazolam HCl (Versed) 5 mg STK-MED ONCE 11/30/21 12:32 11/30/21 15:50 DC Morphine Sulfate (Morphine Sulfate) 4 mg PRN Q2HR PRN 11/28/21 20:15 11/29/21 11:09 DC Ondansetron HCl (Zofran) 4 mg PRN Q8HRS PRN 11/28/21 20:15 11/28/21 20:18 DC Sodium Chloride 1,000 ml @ 400 mls/hr Q2H30M PRN 12/02/21 11:15 12/02/21 23:14 DC Zolpidem Tartrate (Ambien) 5 mg PRN QHS PRN 11/28/21 18:45 Lab Laboratory Tests Test 12/02/21 17:04 12/02/21 19:04 12/03/21 06:30 12/03/21 07:38 Glucose (Fingerstick) 95 mg/dL (70-99) 127 mg/dL (70-99) 45 mg/dL (70-99) White Blood Count 15.2 x10^3/uL (4.0-11.0) Red Blood Count 2.99 x10^6/uL (4.30-5.70) Hemoglobin 8.3 g/dL (13.0-17.5) Hematocrit 24.9 % (39.0-53.0) Mean Corpuscular Volume 84 fL (79-100) Mean Corpuscular Hemoglobin 28 pg (25-35) Mean Corpuscular Hemoglobin Concent 33 g/dL (31-37) Red Cell Distribution Width 15.9 % (11.5-14.5) Platelet Count 119 x10^3/uL (140-400) Neutrophils (%) (Auto) 81 % (31-73) Lymphocytes (%) (Auto) 5 % (24-48) Monocytes (%) (Auto) 13 % (0-9) Eosinophils (%) (Auto) 0 % (0-3) Basophils (%) (Auto) 0 % (0-3) Neutrophils # (Auto) 12.4 x10^3/uL (1.8-7.7) Lymphocytes # (Auto) 0.8 x10^3/uL (1.0-4.8) Monocytes # (Auto) 2.0 x10^3/uL (0.0-1.1) Eosinophils # (Auto) 0.0 x10^3/uL (0.0-0.7) Basophils # (Auto) 0.1 x10^3/uL (0.0-0.2) Segmented Neutrophils % 81 % (35-66) Lymphocytes % 3 % (24-48) Monocytes % 15 % (0-10) Eosinophils % 1 % (0-5) Platelet Estimate Adequate (ADEQUATE) Sodium Level 137 mmol/L (136-145) Potassium Level 4.1 mmol/L (3.5-5.1) Chloride Level 102 mmol/L (98-107) Carbon Dioxide Level 28 mmol/L (21-32) Anion Gap 7 (6-14) Blood Urea Nitrogen 35 mg/dL (8-26) Creatinine 5.6 mg/dL (0.7-1.3) Estimated GFR (Cockcroft-Gault) 10.5 Glucose Level 39 mg/dL (70-99) Calcium Level 8.6 mg/dL (8.5-10.1) Test 12/03/21 07:48 12/03/21 08:32 5/1/22 11:18 Glucose (Fingerstick) 56 mg/dL (70-99) 131 mg/dL (70-99) 166 mg/dL (70-99) Results All relevant outside records, renal labs, imaging studies, telemetry/EKG's were reviewed. Justicifation of Admission Dx: Justifications for Admission: Justification of Admission Dx: Yes CARSON HAWKINS MD December 03, 2021 12:55
[2021-12-03] MEDS ORDERED: HYDROmorphone 2 MG/ML INJ. IVP PRN ×2 (14:30→14:45)
--- NOTE | 2021-12-03 14:38 | PDOC ---
[employer] PROGRESS NOTE Date of Service DOS: DATE: 12/03/21 TIME: 14:37 Chief Complaint Chief Complaint Acute diastolic CHF exacerbation Acute on chronic renal failure DM2 HTN Plan: Fluid restriction to 2L daily, monitor urine output. Patient encouraged to elevate legs at night Consultation to nephrology Hold lisinopril IV hydralazine Resume home medications FEN - Cardiac diet PPX - Heparin FULL CODE/patient surrogate decision-maker is his (Yenni Bates) Dispo - inpatient for above History of Present Illness History of Present Illness Patient is a 56-year-old male with past medical history CHF, presents to the ED with complaints of worsening shortness of breath over the past 2 weeks. He notes associated bilateral feet swelling. States he has taken his home Lasix with improvement. He was told recently by his superintendent measurement only take his Lasix as needed. States last time he took Lasix was one day ago. Denies any chest pain. Labs on admission showed hemoglobin 9.5, hematocrit 28.2, BUN 54, creatinine 4.4, CBG 188, proBNP 8324. Chest x-ray on admission showed increase in small to moderate left pleural effusion with adjacent compressive atelectasis versus infiltrate. Will admit patient for further medical management. 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 Still with SOB on exertion and significant lower extremity swelling on IV Lasix. 11/30: Swelling the same. N.p.o. for renal biopsy this morning. Still short of breath with exertion. Labs not improved. 12/01: Having some back pain right renal biopsy site. States Dilaudid 1 mg is not cutting it for pain. Renal labs worsen. Temporary dialysis catheter had been placed and is going for dialysis today. Overall swelling has worsened a little bit shortness of breath is little worse as well. 12/02: WBC 16.9, Hb 8.9, platelets 137. Tolerated short dialysis run plan for dialysis again today. He still complaining of some right back pain and some right hip pain after renal biopsy. 12/03: Small hemoglobin drop WBC coming down. His pain is actually nearly resolved today. Discussed with patient and will obtain renal ultrasound after biopsy. Plan in the works for outpatient dialysis chair placement. He did have a hypoglycemic episode in the 30s. Discussed he should hold his Amaryl for now this is relatively high risk given his new dialysis status. Vitals/I&O Vitals/I&O: Vital Signs Date Time Temp Pulse Resp B/P (MAP) Pulse Ox O2 Delivery O2 Flow Rate FiO2 12/03/21 11:00 99.8 80 19 163/69 (100) 91 Room Air 99.8 I & O 12/02/21 12/02/21 12/03/21 15:00 23:00 07:00 Intake Total 220 ml Balance 220 ml Physical Exam General: Alert Lungs: Clear Labs Labs: Laboratory Tests Test 12/02/21 17:04 12/02/21 19:04 12/03/21 06:30 12/03/21 07:38 Glucose (Fingerstick) 95 mg/dL (70-99) 127 mg/dL (70-99) 45 mg/dL (70-99) White Blood Count 15.2 x10^3/uL (4.0-11.0) Red Blood Count 2.99 x10^6/uL (4.30-5.70) Hemoglobin 8.3 g/dL (13.0-17.5) Hematocrit 24.9 % (39.0-53.0) Mean Corpuscular Volume 84 fL (79-100) Mean Corpuscular Hemoglobin 28 pg (25-35) Mean Corpuscular Hemoglobin Concent 33 g/dL (31-37) Red Cell Distribution Width 15.9 % (11.5-14.5) Platelet Count 119 x10^3/uL (140-400) Neutrophils (%) (Auto) 81 % (31-73) Lymphocytes (%) (Auto) 5 % (24-48) Monocytes (%) (Auto) 13 % (0-9) Eosinophils (%) (Auto) 0 % (0-3) Basophils (%) (Auto) 0 % (0-3) Neutrophils # (Auto) 12.4 x10^3/uL (1.8-7.7) Lymphocytes # (Auto) 0.8 x10^3/uL (1.0-4.8) Monocytes # (Auto) 2.0 x10^3/uL (0.0-1.1) Eosinophils # (Auto) 0.0 x10^3/uL (0.0-0.7) Basophils # (Auto) 0.1 x10^3/uL (0.0-0.2) Segmented Neutrophils % 81 % (35-66) Lymphocytes % 3 % (24-48) Monocytes % 15 % (0-10) Eosinophils % 1 % (0-5) Platelet Estimate Adequate (ADEQUATE) Sodium Level 137 mmol/L (136-145) Potassium Level 4.1 mmol/L (3.5-5.1) Chloride Level 102 mmol/L (98-107) Carbon Dioxide Level 28 mmol/L (21-32) Anion Gap 7 (6-14) Blood Urea Nitrogen 35 mg/dL (8-26) Creatinine 5.6 mg/dL (0.7-1.3) Estimated GFR (Cockcroft-Gault) 10.5 Glucose Level 39 mg/dL (70-99) Calcium Level 8.6 mg/dL (8.5-10.1) Test 12/03/21 07:48 12/03/21 08:32 12/03/21 11:18 Glucose (Fingerstick) 56 mg/dL (70-99) 131 mg/dL (70-99) 166 mg/dL (70-99) Assessment and Plan Assessmemt and Plan Problems Medical Problems: (1) Shortness of breath Status: Acute Comment Review of Relevant I have reviewed the following items rosanne (where applicable) has been applied. Medications: Current Medications Medications (Trade) Dose Ordered Sig/Zeyad Route PRN Reason Start Time Stop Time Status Last Admin Dose Admin Dextrose (Dextrose 50%-Water Syringe) 12.5 gm PRN Q15MIN PRN IV SEE COMMENTS 12/03/21 08:15 12/03/21 07:55 Justifications for Admission Other Justification Hypertensive emergency OC GUNTER MD December 03, 2021 14:38
[2021-12-03 15:00] VITALS: BP 156/102
[2021-12-03 19:23] VITALS: BP 156/67
[2021-12-03] MEDS: traZODone 50 MG TABLET. PO PRN (19:48)
[2021-12-03 23:07] VITALS: BP 156/76
[2021-12-04] VITALS (13 sets, daily range): BP systolic 136–168; BP diastolic 51–72
--- NOTE | 2021-12-04 06:24 | RAD ---
INDICATION: Reason: Pain, drop in hemoglobin, follow up post-biopsy - TECH NOTIFIED / Spl. Instructi ons: / History: COMPARISON: Biopsy from November 30, 2021 FINDINGS: Focused ultrasound images are obtained of the right kidney. Right kidney is 121 mm without hydronephrosis. Along the peripheral aspect of the kidney there is an echogenic line seen with hypoechoic material portillo perficial to it measuring about 14 mm in thickness and extending for approximately 70 mm.. There is l imitation to this ultrasound secondary to overlying structures obscuring by some subcapsular blood at this location IMPRESSION: * Limited evaluation secondary to overlying structures obscuring but there is a echogenic line seen along the peripheral aspect of the right kidney with hypoechoic material superficial to it. Given th e patient's recent procedure some subcapsular blood at the region could have this appearance. If more complete information is needed CT could further assess given the limitations of this exam.. Electronically signed by: Leif Gonzalez MD (12/04/2021 6:22 AM) [id number]
[2021-12-04] MEDS ORDERED: LIDOCAINE 1%/EPI 1:100,000 20 ML VIAL. ONE (07:54)
[2021-12-04] MEDS: INSULIN LISPRO 300 UNITS/3 ML VIAL. SQ SCH ×3 (07:57→17:20)
[2021-12-04] MEDS: ISOSORBIDE MONONITRATE ER 30 MG TAB.ER.24H PO SCH (08:06)
[2021-12-04] MEDS: METOPROLOL SUCC 24HR ER 25 MG TAB.ER.24H. PO SCH (08:07)
[2021-12-04 08:30] LABS: BASO % 0 % (0-3); EOS # 0.2 x10^3/uL (0.0-0.7); EOS % 2 % (0-3); HEMATOCRIT 21.9 % (39.0-53.0); HEMOGLOBIN 7.4 g/dL (13.0-17.5); LYMPH # 0.6 x10^3/uL (1.0-4.8); LYMPH % 5 % (24-48); MEAN CORPUSCULAR HEMOGLOBIN 29 pg (25-35); MEAN CORPUSCULAR HGB CONC 34 g/dL (31-37); MEAN CORPUSCULAR VOLUME 85 fL (79-100); MONO # 0.9 x10^3/uL (0.0-1.1); MONO % 8 % (0-9); NEUT # 10.1 x10^3/uL (1.8-7.7); NEUT % 85 % (31-73); PLATELET COUNT 108 x10^3/uL (140-400); RED BLOOD COUNT 2.59 x10^6/uL (4.30-5.70); WHITE BLOOD COUNT 11.9 x10^3/uL (4.0-11.0)
[2021-12-04] MEDS ORDERED: MIDAZOLAM HCL/PF 2 MG/2 ML VIAL. ONE (08:45)
[2021-12-04] MEDS ORDERED: fentaNYL PF VIAL 100 MCG/2 ML VIAL ONE (08:45)
[2021-12-04 08:46] LABS: ALBUMIN 1.9 g/dL (3.4-5.0); CALCIUM 8.2 mg/dL (8.5-10.1); CREATININE 6.6 mg/dL (0.7-1.3); GFR 8.7; PHOSPHORUS 4.1 mg/dL (2.6-4.7); POTASSIUM 3.9 mmol/L (3.5-5.1)
--- NOTE | 2021-12-04 09:08 | PDOC ---
DATE OF SERVICE DATE: 12/04/21 TIME: 09:05 SUBJECTIVE ROS Denies SOB. No N/V. No complaints. at bedside OBJECTIVE Vital Signs Vital Signs Date Time Temp Pulse Resp B/P (MAP) Pulse Ox O2 Delivery O2 Flow Rate FiO2 12/04/21 09:02 80 19 97 Room Air 12/04/21 08:07 168/70 12/04/21 07:00 98.9 98.9 I & 0 Intake and Output 12/04/21 07:00 Intake Total 1560 ml Output Total 700 ml Balance 860 ml Intake Oral 1560 ml Output Urine Total 700 ml PHYSICAL EXAM Physical Exam General: No acute distress HEENT: Atraumatic, Mucous membr. moist/pink, On RA Neck supple Lungs: Clear to auscultation, non labored Heart: Regular rate Abdomen: Soft, No tenderness Extremities: Bilat LE edema +, Skin: No significant lesion, No rash Neuro: grossly normal Psych/Mental Status: Mental status NL, Mood NL No Mercado DIAGNOSIS/ASSESSMENT Assessment & Plan New Onset ESRD - Renal Bx 11/30/2021 - Prelim Results - Advanced diabetic changes with significant Glomerulosclerosis. started on 12/01, 2nd treatment 12/02 No indication for dialysis today . Discussed about PD and Transplant with patient and Access [facility]eled HDC on 12/04/2021 SW for OP chair time @ [facility] , Reid RN . Anemia Post Bx Hgb decreased Dyspnea with acute on chronic diastolic CHF and pleural effusion; Echo 12/23 with preserved LV systolic function. Stress test 12/23 without normal perfusion Proteinuria 2/2 DM and HTN. Pr/Cr 3584 , repeat was 24 Hr Ur Pr 7.7 gms . Prelim - Bx- advanced Diabetic Nephrosclerosis HTN - Uncontrolled HTN , BP's in 200's systolic / Diastolic also significantly elevated Renal Doppler no e/o SHEFALI . During his recent office visit he reported that he has been taking his meds sporadically . Edema - chronic with worsening , start dialysis today Renal Calculus- per pt report x 1 approx 10 years ago,, CT in 2017 . Left-sided nephrolithiasis, nonobstructive. diabetes mellitus type 2- Uncontrolled in past, recent A1C 7.2 per pt, pt reports PCP titrating down Diabetes meds COMMENT/RELEVANT DATA Meds Current Medications Medications (Trade) Dose Ordered Sig/Zeyad Start Time Stop Time Status Last Admin Dose Admin Acetaminophen (Tylenol) 650 mg PRN Q4HRS PRN 11/28/21 20:15 11/28/21 20:18 DC Acetaminophen/ Hydrocodone Bitart (Lortab 5325) 1 tab PRN Q4HRS PRN 11/28/21 18:45 12/03/21 14:32 DC 11/30/21 13:57 1 TAB Al Hydroxide/Mg Hydroxide (Mylanta Plus Xs) 30 ml PRN Q3HRS PRN 11/28/21 18:45 12/03/21 14:36 DC Amlodipine Besylate (Norvasc) 10 mg DAILY 11/28/21 18:30 12/04/21 08:07 10 MG Atenolol (Tenormin) 50 mg DAILY 11/28/21 18:30 11/29/21 12:51 DC 11/29/21 08:27 50 MG Cefazolin Sodium/ Dextrose 50 ml @ 100 mls/hr 1X ONCE 12/04/21 09:15 12/04/21 09:44 UNV Dextrose (Dextrose 50%-Water Syringe) 12.5 gm PRN Q15MIN PRN 12/03/21 08:15 12/03/21 07:55 12.5 GM Dextrose (Iv Dextrose 5%) 250 ml PRN Q15MIN PRN 11/28/21 19:00 Enoxaparin Sodium (Lovenox 30mg Syringe) 30 mg Q24H 11/28/21 21:00 11/30/21 17:48 DC 11/28/21 21:02 30 MG Fentanyl Citrate (Fentanyl 2ml Vial) 100 mcg 1X ONCE 12/04/21 09:15 12/04/21 09:16 UNV Fentanyl Citrate (Fentanyl 5ml Vial) 250 mcg STK-MED ONCE 11/30/21 12:32 11/30/21 15:50 DC Furosemide (Lasix) 40 mg DAILY 11/29/21 09:00 12/03/21 14:32 DC 12/03/21 09:26 40 MG Gelatin (Gelfoam Size 12-7mm) 1 each STK-MED ONCE 11/30/21 12:57 11/30/21 15:51 DC Glimepiride (Amaryl) 2 mg DAILY 11/30/21 09:00 12/03/21 14:32 DC 12/03/21 09:26 2 MG Heparin Sodium (Porcine) (Heparin Sodium) 5,000 unit Q12HR 12/01/21 21:00 12/03/21 09:39 5,000 UNIT Hydralazine HCl (Apresoline Inj) 10 mg PRN Q4HRS PRN 11/28/21 19:00 12/03/21 02:41 10 MG Hydralazine HCl (Apresoline) 50 mg BID 11/29/21 21:00 11/29/21 14:20 DC Hydromorphone HCl (Dilaudid) 2 mg PRN Q4HRS PRN 12/03/21 14:30 Info (PHARMACY MONITORING -- do not chart) 1 each PRN DAILY PRN 12/02/21 11:15 UNV Insulin Human Lispro (HumaLOG) 0-7 UNITS TIDWMEALS 11/29/21 08:00 12/03/21 17:00 4 UNITS Isosorbide Mononitrate (Imdur) 30 mg DAILY 11/29/21 14:30 UNV Lidocaine HCl (Buffered Lidocaine 1%) 3 ml STK-MED ONCE 11/30/21 12:59 11/30/21 15:51 DC Lidocaine/ Epinephrine (LIDOCAINE 1%-EPI 1:100,000 Multi-Dose) 10 ml 1X ONCE 12/04/21 09:15 12/04/21 09:16 UNV Magnesium Hydroxide (Milk Of Magnesia) 2,400 mg PRN Q12HR PRN 11/28/21 18:45 12/03/21 14:36 DC Metoprolol Succinate (Toprol Xl) 25 mg DAILY 11/29/21 13:30 12/04/21 08:07 25 MG Midazolam HCl (Versed) 2 mg 1X ONCE 12/04/21 09:15 12/04/21 09:16 UNV Morphine Sulfate (Morphine Sulfate) 4 mg PRN Q2HR PRN 11/28/21 20:15 11/29/21 11:09 DC Ondansetron HCl (Zofran) 4 mg PRN Q8HRS PRN 11/28/21 20:15 11/28/21 20:18 DC Sodium Chloride 1,000 ml @ 400 mls/hr Q2H30M PRN 12/02/21 11:15 12/02/21 23:14 DC Trazodone HCl (Desyrel) 50 mg PRN QHS PRN 12/03/21 14:45 12/03/21 19:48 50 MG Zolpidem Tartrate (Ambien) 5 mg PRN QHS PRN 11/28/21 18:45 12/03/21 14:41 DC Lab Laboratory Tests Test 12/03/21 11:18 12/03/21 17:15 12/03/21 20:25 12/04/21 06:45 Glucose (Fingerstick) 166 mg/dL (70-99) 233 mg/dL (70-99) 167 mg/dL (70-99) White Blood Count 11.9 x10^3/uL (4.0-11.0) Red Blood Count 2.59 x10^6/uL (4.30-5.70) Hemoglobin 7.4 g/dL (13.0-17.5) Hematocrit 21.9 % (39.0-53.0) Mean Corpuscular Volume 85 fL (79-100) Mean Corpuscular Hemoglobin 29 pg (25-35) Mean Corpuscular Hemoglobin Concent 34 g/dL (31-37) Red Cell Distribution Width 16.0 % (11.5-14.5) Platelet Count 108 x10^3/uL (140-400) Neutrophils (%) (Auto) 85 % (31-73) Lymphocytes (%) (Auto) 5 % (24-48) Monocytes (%) (Auto) 8 % (0-9) Eosinophils (%) (Auto) 2 % (0-3) Basophils (%) (Auto) 0 % (0-3) Neutrophils # (Auto) 10.1 x10^3/uL (1.8-7.7) Lymphocytes # (Auto) 0.6 x10^3/uL (1.0-4.8) Monocytes # (Auto) 0.9 x10^3/uL (0.0-1.1) Eosinophils # (Auto) 0.2 x10^3/uL (0.0-0.7) Basophils # (Auto) 0.0 x10^3/uL (0.0-0.2) Sodium Level 138 mmol/L (136-145) Potassium Level 3.9 mmol/L (3.5-5.1) Chloride Level 102 mmol/L (98-107) Carbon Dioxide Level 26 mmol/L (21-32) Anion Gap 10 (6-14) Blood Urea Nitrogen 45 mg/dL (8-26) Creatinine 6.6 mg/dL (0.7-1.3) Estimated GFR (Cockcroft-Gault) 8.7 Glucose Level 126 mg/dL (70-99) Calcium Level 8.2 mg/dL (8.5-10.1) Phosphorus Level 4.1 mg/dL (2.6-4.7) Albumin 1.9 g/dL (3.4-5.0) Test 12/04/21 07:35 Glucose (Fingerstick) 122 mg/dL (70-99) Results All relevant outside records, renal labs, imaging studies, telemetry/EKG's were reviewed. Justicifation of Admission Dx: Justifications for Admission: Justification of Admission Dx: Yes CARSON HAWKINS MD December 04, 2021 09:08
[2021-12-04] MEDS ORDERED: fentaNYL PF VIAL 100 MCG/2 ML VIAL IV ONE (09:15)
[2021-12-04] MEDS ORDERED: LIDOCAINE 1%/EPI 1:100,000 20 ML VIAL. INJ ONE (09:15)
[2021-12-04] MEDS ORDERED: MIDAZOLAM HCL/PF 2 MG/2 ML VIAL. IV ONE (09:15)
--- NOTE | 2021-12-04 09:21 | NUR ---
Received report from Makeda ALAS in IR at 0906. Patient received 2 versed, 100mcg fentanyl, new dialysis catheter place in same are, RU chest. 2 grams of ancef. BP was reported as 162/72, HR 80, 98% RA. Patient arrived on unit at 0918. On frequent q 15minutes, then q30 mins for an hour. Tray ordered for patient.
--- NOTE | 2021-12-04 09:43 | PDOC ---
SWAPNIL BENAVIDES HULL INSPECTOR 12/04/21 0943: CARDIO Progress Notes Date and Time Date of Service 12/04/21 Time of Evaluation 1015 Subjective Subjective: No Chest Pain, No shortness of breath, No Palpitations, Other (sleepy ) Vitals Vitals Vital Signs Date Time Temp Pulse Resp B/P (MAP) Pulse Ox O2 Delivery O2 Flow Rate FiO2 12/04/21 09:20 98.3 82 22 145/51 (82) 94 Room Air 98.3 Weight Weight [ ] Input and Output Intake and Output Intake and Output 12/04/21 07:00 Intake Total 1560 ml Output Total 700 ml Balance 860 ml Intake Oral 1560 ml Output Urine Total 700 ml Laboratory Labs Laboratory Tests Test 12/03/21 11:18 12/03/21 17:15 12/03/21 20:25 12/04/21 06:45 Glucose (Fingerstick) 166 mg/dL (70-99) 233 mg/dL (70-99) 167 mg/dL (70-99) White Blood Count 11.9 x10^3/uL (4.0-11.0) Red Blood Count 2.59 x10^6/uL (4.30-5.70) Hemoglobin 7.4 g/dL (13.0-17.5) Hematocrit 21.9 % (39.0-53.0) Mean Corpuscular Volume 85 fL (79-100) Mean Corpuscular Hemoglobin 29 pg (25-35) Mean Corpuscular Hemoglobin Concent 34 g/dL (31-37) Red Cell Distribution Width 16.0 % (11.5-14.5) Platelet Count 108 x10^3/uL (140-400) Neutrophils (%) (Auto) 85 % (31-73) Lymphocytes (%) (Auto) 5 % (24-48) Monocytes (%) (Auto) 8 % (0-9) Eosinophils (%) (Auto) 2 % (0-3) Basophils (%) (Auto) 0 % (0-3) Neutrophils # (Auto) 10.1 x10^3/uL (1.8-7.7) Lymphocytes # (Auto) 0.6 x10^3/uL (1.0-4.8) Monocytes # (Auto) 0.9 x10^3/uL (0.0-1.1) Eosinophils # (Auto) 0.2 x10^3/uL (0.0-0.7) Basophils # (Auto) 0.0 x10^3/uL (0.0-0.2) Sodium Level 138 mmol/L (136-145) Potassium Level 3.9 mmol/L (3.5-5.1) Chloride Level 102 mmol/L (98-107) Carbon Dioxide Level 26 mmol/L (21-32) Anion Gap 10 (6-14) Blood Urea Nitrogen 45 mg/dL (8-26) Creatinine 6.6 mg/dL (0.7-1.3) Estimated GFR (Cockcroft-Gault) 8.7 Glucose Level 126 mg/dL (70-99) Calcium Level 8.2 mg/dL (8.5-10.1) Phosphorus Level 4.1 mg/dL (2.6-4.7) Albumin 1.9 g/dL (3.4-5.0) Test 12/04/21 07:35 Glucose (Fingerstick) 122 mg/dL (70-99) Physical Exam HEENT: Neck Supple W Full Motion Chest: Symmetric LUNGS: Other (diminished bases ) Heart: RRR (SR) Abdomen: Soft N/T Extremities: Other (trace pedal edema ) Neurology: alert, oriented, follow commands Assessment Assessment 1. Acute on chronic diastolic CHF and pleural effusion; r/t renal failure. Echo 12/23 with preserved LV systolic function. Stress test 12/23 without normal perfusion. Limited echo showed LVEF 60%, no WMA 2. Accelerated hypertensive; improved 3. ADRIENNE on CKD; Cr ^ 5.8. s/p renal biopsy. HD initiated 4. Diabetes, II 5. Hyperlipidemia 6. GERD 7. Anemia- hgb drift to 7.4. no obvious bleeding Recommendations Continue metoprolol, amlodipine, hydralazine, and Imdur Fluid offloading via HD No ACEi/ARB with RI- avoid nephrotoxins Supportive care Justicifation of Admission Dx: Justifications for Admission: Justification of Admission Dx: Yes JUAN MANUEL OLGUIN MD 12/05/21 0854: CARDIO Progress Notes Plan Plan Late entry for 12/04/2021 Patient seen and examined. Agree with above nurse practitioner note SWAPNIL BENAVIDES APRN December 04, 2021 09:43 JUAN MANUEL OLGUIN MD December 05, 2021 08:54
[2021-12-04] MEDS ORDERED: METO-239 PO (10:50)
[2021-12-04] MEDS ORDERED: TRAZ-118 PO (10:50)
[2021-12-04] MEDS ORDERED: ISOS30TA68 PO (10:50)
--- NOTE | 2021-12-04 10:51 | PDOC ---
[employer] PROGRESS NOTE Date of Service DOS: DATE: 12/04/21 TIME: 10:51 Chief Complaint Chief Complaint Acute diastolic CHF exacerbation Acute on chronic renal failure DM2 HTN History of Present Illness History of Present Illness 12/04/2021 Patient seen exam Discussed with RN Chart reviewed He got his new permanent catheter We are hoping to discharge this afternoon once his dialysis chair time has been arranged Patient is a 56-year-old male with past medical history CHF, presents to the ED with complaints of worsening shortness of breath over the past 2 weeks. He notes associated bilateral feet swelling. States he has taken his home Lasix with improvement. He was told recently by his clock mechanic only take his Lasix as needed. States last time he took Lasix was one day ago. Denies any chest pain. Labs on admission showed hemoglobin 9.5, hematocrit 28.2, BUN 54, creatinine 4.4, CBG 188, proBNP 8324. Chest x-ray on admission showed increase in small to moderate left pleural effusion with adjacent compressive atelectasis versus infiltrate. Will admit patient for further medical management. 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 Still with SOB on exertion and significant lower extremity swelling on IV Lasix. 11/30: Swelling the same. N.p.o. for renal biopsy this morning. Still short of breath with exertion. Labs not improved. 12/01: Having some back pain right renal biopsy site. States Dilaudid 1 mg is not cutting it for pain. Renal labs worsen. Temporary dialysis catheter had been placed and is going for dialysis today. Overall swelling has worsened a little bit shortness of breath is little worse as well. 12/02: WBC 16.9, Hb 8.9, platelets 137. Tolerated short dialysis run plan for dialysis again today. He still complaining of some right back pain and some right hip pain after renal biopsy. 12/03: Small hemoglobin drop WBC coming down. His pain is actually nearly resolved today. Discussed with patient and will obtain renal ultrasound after biopsy. Plan in the works for outpatient dialysis chair placement. He did have a hypoglycemic episode in the 30s. Discussed he should hold his Amaryl for now this is relatively high risk given his new dialysis status. Vitals/I&O Vitals/I&O: Vital Signs Date Time Temp Pulse Resp B/P (MAP) Pulse Ox O2 Delivery O2 Flow Rate FiO2 12/04/21 09:20 98.3 67 20 136/67 (90) 93 Room Air 98.3 I & O 12/03/21 12/03/21 12/04/21 15:00 23:00 07:00 Intake Total 600 ml 840 ml 120 ml Output Total 400 ml 300 ml Balance 600 ml 440 ml -180 ml Physical Exam General: Alert Lungs: Clear Labs Labs: Laboratory Tests Test 12/03/21 11:18 12/03/21 17:15 12/03/21 20:25 12/04/21 06:45 Glucose (Fingerstick) 166 mg/dL (70-99) 233 mg/dL (70-99) 167 mg/dL (70-99) White Blood Count 11.9 x10^3/uL (4.0-11.0) Red Blood Count 2.59 x10^6/uL (4.30-5.70) Hemoglobin 7.4 g/dL (13.0-17.5) Hematocrit 21.9 % (39.0-53.0) Mean Corpuscular Volume 85 fL (79-100) Mean Corpuscular Hemoglobin 29 pg (25-35) Mean Corpuscular Hemoglobin Concent 34 g/dL (31-37) Red Cell Distribution Width 16.0 % (11.5-14.5) Platelet Count 108 x10^3/uL (140-400) Neutrophils (%) (Auto) 85 % (31-73) Lymphocytes (%) (Auto) 5 % (24-48) Monocytes (%) (Auto) 8 % (0-9) Eosinophils (%) (Auto) 2 % (0-3) Basophils (%) (Auto) 0 % (0-3) Neutrophils # (Auto) 10.1 x10^3/uL (1.8-7.7) Lymphocytes # (Auto) 0.6 x10^3/uL (1.0-4.8) Monocytes # (Auto) 0.9 x10^3/uL (0.0-1.1) Eosinophils # (Auto) 0.2 x10^3/uL (0.0-0.7) Basophils # (Auto) 0.0 x10^3/uL (0.0-0.2) Sodium Level 138 mmol/L (136-145) Potassium Level 3.9 mmol/L (3.5-5.1) Chloride Level 102 mmol/L (98-107) Carbon Dioxide Level 26 mmol/L (21-32) Anion Gap 10 (6-14) Blood Urea Nitrogen 45 mg/dL (8-26) Creatinine 6.6 mg/dL (0.7-1.3) Estimated GFR (Cockcroft-Gault) 8.7 Glucose Level 126 mg/dL (70-99) Calcium Level 8.2 mg/dL (8.5-10.1) Phosphorus Level 4.1 mg/dL (2.6-4.7) Albumin 1.9 g/dL (3.4-5.0) Test 12/04/21 07:35 Glucose (Fingerstick) 122 mg/dL (70-99) Assessment and Plan Assessmemt and Plan Problems Medical Problems: (1) Shortness of breath Status: Acute Discharge see Comment Review of Relevant I have reviewed the following items rosanne (where applicable) has been applied. Medications: Current Medications Medications (Trade) Dose Ordered Sig/Zeyad Route PRN Reason Start Time Stop Time Status Last Admin Dose Admin Trazodone HCl (Desyrel) 50 mg PRN QHS PRN PO INSOMNIA 12/03/21 14:45 12/03/21 19:48 Midazolam HCl (Versed) 2 mg 1X ONCE IV 12/04/21 09:15 12/04/21 09:16 DC 12/04/21 09:06 Fentanyl Citrate (Fentanyl 2ml Vial) 100 mcg 1X ONCE IV 12/04/21 09:15 12/04/21 09:16 DC 12/04/21 09:05 Lidocaine/ Epinephrine (LIDOCAINE 1%-EPI 1:100,000 Multi-Dose) 10 ml 1X ONCE INJ 12/04/21 09:15 12/04/21 09:16 DC 12/04/21 09:05 Cefazolin Sodium/ Dextrose 50 ml @ 100 mls/hr 1X ONCE IV 12/04/21 09:15 12/04/21 09:44 DC 12/04/21 09:05 Justifications for Admission Other Justification Hypertensive emergency GIO CROWE III DO December 04, 2021 10:51
[2021-12-04] MEDS: HEPARIN for SUB-Q USE 5,000 UNIT/ML VIAL. SQ SCH ×2 (12:30→20:31)
--- NOTE | 2021-12-04 17:02 | RAD ---
12/04/2021 4:59 PM Conversion of a temporary hemodialysis catheter to a tunneled hemodialysis catheter with fluoroscopic guidance. Indication: Renal failure, need for longer term hemodialysis. Consent: The procedure was explained in its entirety to the patient or the patients designated repres entative by a member of the treatment team, including a discussion of the risks, benefits and commonl y accepted alternatives to the procedure, as well as the expected consequences of no therapy whatsoev er. Discussion of the risks included, but was not limited to, those that are most frequent and thos e that are rare but possibly severe or life-threatening, as well as the possibility of unforeseen com plications. Sterility: The patient was prepped and draped using maximum sterile technique, including the use of: Current guideline approved cutaneous antisepsis, a large sterile sheet to establish a sterile field. Additionally the lap cutter truer operator wore a hat, mask, sterile gloves, a sterile gown during the procedure as we ll as practiced acceptable hand hygiene prior to placing the line. Sedation: The procedure was performed under conscious sedation including continuous cardiopulmonary m onitoring via a dedicated sedation nurse.[id number] sedation time: 30 minutes Fluoroscopy time: 0.4 minutes Dose Area Product: 4 Terry centimeter squared Procedural details: The right neck was prepped and draped as described. This includes the pre-existin g catheter. A guidewire was advanced through the catheter into the IVC. The pre-existing catheter w as removed over the wire and replaced with a peel-away sheath. A 23 cm tip to cuff palindrome cathete r was advanced from a small dermatotomy several centimeters inferior to the right clavicle, to the ac cess site. The new catheter was then delivered through the peel-away sheath such that the catheter ti p was in the proximal right atrium with the patient supine. The catheter was found to flush and aspir ate normally. The catheter was secured in place. Sterile dressings were applied. No immediate complic ations were identified. Impression: Conversion of a right internal jugular temporary hemodialysis catheter to tunneled cathet er Electronically signed by: Gibson Holguin MD (12/04/2021 5:00 PM) [id number]
[2021-12-04] MEDS: traZODone 50 MG TABLET. PO PRN (20:09)
--- NOTE | 2021-12-04 20:37 | DS ---
DATE OF DISCHARGE: 12/04/2021 ADMISSION DIAGNOSES: Volume overload, acute on chronic systolic and diastolic heart failure, diabetes, hypertension, renal failure. DISCHARGE DIAGNOSES: New initiation of dialysis, resolving heart failure, diabetes, hypertension. HOSPITAL COURSE: The patient is a pleasant middle-aged male who presented with volume overload. He has got chronic renal failure and had developed an acute phase of it. We went ahead and consulted Cardiology and Nephrology. He was started on dialysis. Today, I spoke with the case assistant. They are arranging for his dialysis chair time. He looks great. We plan to discharge. DISPOSITION: Home. ACTIVITY: As tolerated. DIET: Renal. DISCHARGE MEDICATIONS: Please see the MRAD. Imdur 30 mg a day, metoprolol 25 mg a day, trazodone 50 mg at bedtime, amlodipine 10 mg a day, glimepiride 4 mg a day and hydralazine 100 mg b.i.d. Total time [address]: Neeru TID: [id number]
[2021-12-05 03:00] VITALS: BP 163/66
[2021-12-05 07:00] VITALS: BP 171/69
[2021-12-05] MEDS: INSULIN LISPRO 300 UNITS/3 ML VIAL. SQ SCH ×2 (08:00→12:00)
[2021-12-05] MEDS ORDERED: DIALYSIS PATIENT. MC PRN ×2 (08:15)
--- NOTE | 2021-12-05 08:59 | PDOC ---
DATE OF SERVICE DATE: 12/05/21 TIME: 08:59 SUBJECTIVE ROS Denies SOB. No N/V. No complaints. at bedside OBJECTIVE Vital Signs Vital Signs Date Time Temp Pulse Resp B/P (MAP) Pulse Ox O2 Delivery O2 Flow Rate FiO2 12/05/21 07:00 14 14 171/69 (103) 93 Room Air 12/05/21 03:00 98.5 98.5 I & 0 Intake and Output 12/05/21 07:00 Intake Total 805 ml Output Total 1100 ml Balance -295 ml Intake Oral 805 ml Output Urine Total 1100 ml # Bowel Movements 3 PHYSICAL EXAM Physical Exam General: No acute distress HEENT: Atraumatic, Mucous membr. moist/pink, On RA Neck supple Lungs: Clear to auscultation, non labored Heart: Regular rate Abdomen: Soft, No tenderness Extremities: Bilat LE edema +, Skin: No significant lesion, No rash Neuro: grossly normal Psych/Mental Status: Mental status NL, Mood NL No Mercado DIAGNOSIS/ASSESSMENT Assessment & Plan New Onset ESRD - Renal Bx 11/30/2021 - Prelim Results - Advanced diabetic changes with significant Glomerulosclerosis. started on 12/01, 2nd treatment 12/02 . Dialysis today, tolerated well. Discussed treatment plan with KADEN Access Tunneled HDC on 12/04/2021 OP chair time @ [facility] UN[facility] . Can be dced from Renal standpoint Anemia Post Bx Hgb decreased Dyspnea with acute on chronic diastolic CHF and pleural effusion; Echo 12/23 with preserved LV systolic function. Stress test 12/23 without normal perfusion Proteinuria 2/2 DM and HTN. Pr/Cr 3584 , repeat was 24 Hr Ur Pr 7.7 gms . Prelim - Bx- advanced Diabetic Nephrosclerosis HTN - Uncontrolled HTN , BP's in 200's systolic / Diastolic also significantly elevated Renal Doppler no e/o SHEFALI . During his recent office visit he reported that he has been taking his meds sporadically . Edema - chronic with worsening , start dialysis today Renal Calculus- per pt report x 1 approx 10 years ago,, CT in 2017 . Left-sided nephrolithiasis, nonobstructive. diabetes mellitus type 2- Uncontrolled in past, recent A1C 7.2 per pt, pt reports PCP titrating down Diabetes meds COMMENT/RELEVANT DATA Meds Current Medications Medications (Trade) Dose Ordered Sig/Zeyad Start Time Stop Time Status Last Admin Dose Admin Acetaminophen (Tylenol) 650 mg PRN Q4HRS PRN 11/28/21 20:15 11/28/21 20:18 DC Acetaminophen/ Hydrocodone Bitart (Lortab ) 1 tab PRN Q4HRS PRN 11/28/21 18:45 12/03/21 14:32 DC 11/30/21 13:57 1 TAB Al Hydroxide/Mg Hydroxide (Mylanta Plus Xs) 30 ml PRN Q3HRS PRN 11/28/21 18:45 12/03/21 14:36 DC Amlodipine Besylate (Norvasc) 10 mg DAILY 11/28/21 18:30 12/04/21 08:07 10 MG Atenolol (Tenormin) 50 mg DAILY 11/28/21 18:30 11/29/21 12:51 DC 11/29/21 08:27 50 MG Cefazolin Sodium/ Dextrose 50 ml @ 100 mls/hr 1X ONCE 12/04/21 09:15 12/04/21 09:44 DC 12/04/21 09:05 100 MLS/HR Dextrose (Dextrose 50%-Water Syringe) 12.5 gm PRN Q15MIN PRN 12/03/21 08:15 12/03/21 07:55 12.5 GM Dextrose (Iv Dextrose 5%) 250 ml PRN Q15MIN PRN 11/28/21 19:00 Enoxaparin Sodium (Lovenox 30mg Syringe) 30 mg Q24H 11/28/21 21:00 11/30/21 17:48 DC 11/28/21 21:02 30 MG Fentanyl Citrate (Fentanyl 2ml Vial) 100 mcg 1X ONCE 12/04/21 09:15 12/04/21 09:16 DC 12/04/21 09:05 100 MCG Fentanyl Citrate (Fentanyl 5ml Vial) 250 mcg STK-MED ONCE 11/30/21 12:32 11/30/21 15:50 DC Furosemide (Lasix) 40 mg DAILY 11/29/21 09:00 12/03/21 14:32 DC 12/03/21 09:26 40 MG Gelatin (Gelfoam Size 12-7mm) 1 each STK-MED ONCE 11/30/21 12:57 11/30/21 15:51 DC Glimepiride (Amaryl) 2 mg DAILY 11/30/21 09:00 12/03/21 14:32 DC 12/03/21 09:26 2 MG Heparin Sodium (Porcine) (Heparin Sodium) 5,000 unit Q12HR 12/01/21 21:00 12/04/21 20:31 5,000 UNIT Hydralazine HCl (Apresoline Inj) 10 mg PRN Q4HRS PRN 11/28/21 19:00 12/03/21 02:41 10 MG Hydralazine HCl (Apresoline) 50 mg BID 11/29/21 21:00 11/29/21 14:20 DC Hydromorphone HCl (Dilaudid) 2 mg PRN Q4HRS PRN 12/03/21 14:30 Info (PHARMACY MONITORING -- do not chart) 1 each PRN DAILY PRN 12/05/21 08:15 UNV Insulin Human Lispro (HumaLOG) 0-7 UNITS TIDWMEALS 11/29/21 08:00 12/04/21 17:20 4 UNITS Isosorbide Mononitrate (Imdur) 30 mg DAILY 11/29/21 14:30 UNV Lidocaine HCl (Buffered Lidocaine 1%) 3 ml STK-MED ONCE 11/30/21 12:59 11/30/21 15:51 DC Lidocaine/ Epinephrine (LIDOCAINE 1%-EPI 1:100,000 Multi-Dose) 10 ml 1X ONCE 12/04/21 09:15 12/04/21 09:16 DC 12/04/21 09:05 10 ML Magnesium Hydroxide (Milk Of Magnesia) 2,400 mg PRN Q12HR PRN 11/28/21 18:45 12/03/21 14:36 DC Metoprolol Succinate (Toprol Xl) 25 mg DAILY 11/29/21 13:30 12/04/21 08:07 25 MG Midazolam HCl (Versed) 2 mg 1X ONCE 12/04/21 09:15 12/04/21 09:16 DC 12/04/21 09:06 2 MG Morphine Sulfate (Morphine Sulfate) 4 mg PRN Q2HR PRN 11/28/21 20:15 11/29/21 11:09 DC Ondansetron HCl (Zofran) 4 mg PRN Q8HRS PRN 11/28/21 20:15 11/28/21 20:18 DC Sodium Chloride 1,000 ml @ 400 mls/hr Q2H30M PRN 12/02/21 11:15 12/02/21 23:14 DC Trazodone HCl (Desyrel) 50 mg PRN QHS PRN 12/03/21 14:45 12/04/21 20:09 50 MG Zolpidem Tartrate (Ambien) 5 mg PRN QHS PRN 11/28/21 18:45 12/03/21 14:41 DC Lab Laboratory Tests Test 12/04/21 11:49 12/04/21 16:52 12/04/21 21:07 12/05/21 07:50 Glucose (Fingerstick) 196 mg/dL (70-99) 237 mg/dL (70-99) 210 mg/dL (70-99) Hemoglobin 8.5 g/dL (13.0-17.5) Test 12/05/21 07:52 Glucose (Fingerstick) 143 mg/dL (70-99) Results All relevant outside records, renal labs, imaging studies, telemetry/EKG's were reviewed. Justicifation of Admission Dx: Justifications for Admission: Justification of Admission Dx: Yes CARSON HAWKINS MD December 05, 2021 08:59
[2021-12-05 09:31] LABS: CALCIUM 8.5 mg/dL (8.5-10.1); CREATININE 7.5 mg/dL (0.7-1.3); GFR 7.5; POTASSIUM 3.9 mmol/L (3.5-5.1)
--- NOTE | 2021-12-05 10:24 | PDOC ---
[facility] [facility] PROGRESS NOTE Date of Service DOS: DATE: 12/05/21 TIME: 10:23 Chief Complaint Chief Complaint Acute diastolic CHF exacerbation Acute on chronic renal failure DM2 HTN History of Present Illness History of Present Illness 12/05/2021 Patient seen Discussed with RN Chart reviewed We are hoping to redischarge this afternoon if chair time is arranged 12/04/2021 Patient seen exam Discussed with RN Chart reviewed He got his new permanent catheter We are hoping to discharge this afternoon once his dialysis chair time has been arranged Patient is a 56-year-old male with past medical history CHF, presents to the ED with complaints of worsening shortness of breath over the past 2 weeks. He notes associated bilateral feet swelling. States he has taken his home Lasix with improvement. 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 States last time he took Lasix was one day ago. Denies any chest pain. Labs on admission showed hemoglobin 9.5, hematocrit 28.2, BUN 54, creatinine 4.4, CBG 188, proBNP 8324. Chest x-ray on admission showed increase in small to moderate left pleural effusion with adjacent compressive atelectasis versus infiltrate. Will admit patient for further medical management. 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 Still with SOB on exertion and significant lower extremity swelling on IV Lasix. 11/30: Swelling the same. N.p.o. for renal biopsy this morning. Still short of breath with exertion. Labs not improved. 12/01: Having some back pain right renal biopsy site. States Dilaudid 1 mg is not cutting it for pain. Renal labs worsen. Temporary dialysis catheter had been placed and is going for dialysis today. Overall swelling has worsened a little bit shortness of breath is little worse as well. 12/02: WBC 16.9, Hb 8.9, platelets 137. Tolerated short dialysis run plan for dialysis again today. He still complaining of some right back pain and some right hip pain after renal biopsy. 12/03: Small hemoglobin drop WBC coming down. His pain is actually nearly resolved today. Discussed with patient and will obtain renal ultrasound after biopsy. Plan in the works for outpatient dialysis chair placement. He did have a hypoglycemic episode in the 30s. Discussed he should hold his Amaryl for now this is relatively high risk given his new dialysis status. Vitals/I&O Vitals/I&O: Vital Signs Date Time Temp Pulse Resp B/P (MAP) Pulse Ox O2 Delivery O2 Flow Rate FiO2 12/05/21 07:00 14 14 171/69 (103) 93 Room Air 12/05/21 03:00 98.5 98.5 I & O 12/04/21 12/04/21 12/05/21 15:00 23:00 07:00 Intake Total 45 ml 540 ml 220 ml Output Total 400 ml 500 ml 200 ml Balance -355 ml 40 ml 20 ml Physical Exam General: Alert Lungs: Clear Labs Labs: Laboratory Tests Test 12/04/21 11:49 12/04/21 16:52 12/04/21 21:07 12/05/21 07:50 Glucose (Fingerstick) 196 mg/dL (70-99) 237 mg/dL (70-99) 210 mg/dL (70-99) Hemoglobin 8.5 g/dL (13.0-17.5) Sodium Level 138 mmol/L (136-145) Potassium Level 3.9 mmol/L (3.5-5.1) Chloride Level 101 mmol/L (98-107) Carbon Dioxide Level 26 mmol/L (21-32) Anion Gap 11 (6-14) Blood Urea Nitrogen 57 mg/dL (8-26) Creatinine 7.5 mg/dL (0.7-1.3) Estimated GFR (Cockcroft-Gault) 7.5 Glucose Level 138 mg/dL (70-99) Calcium Level 8.5 mg/dL (8.5-10.1) Iron Level 21 ug/dL (65-175) Total Iron Binding Capacity 173 ug/dL (250-450) Iron Saturation 12 % (15-34) Ferritin 318 ng/mL (26-388) Test 12/05/21 07:52 Glucose (Fingerstick) 143 mg/dL (70-99) Assessment and Plan Assessmemt and Plan Problems Medical Problems: (1) Shortness of breath Status: Acute Comment Review of Relevant I have reviewed the following items rosanne (where applicable) has been applied. Justifications for Admission Other Justification Hypertensive emergency GIO CROWE III DO December 05, 2021 10:24
[2021-12-05] MEDS: METOPROLOL SUCC 24HR ER 25 MG TAB.ER.24H. PO SCH (12:04)
[2021-12-05] MEDS: ISOSORBIDE MONONITRATE ER 30 MG TAB.ER.24H PO SCH (12:05)
[2021-12-05] MEDS: HEPARIN for SUB-Q USE 5,000 UNIT/ML VIAL. SQ SCH (12:05)
[2021-12-05 12:17] VITALS: BP 177/99
[2021-12-05] MEDS ORDERED: ISOS60TA55 PO (12:24)
--- NOTE | 2021-12-05 12:26 | PDOC ---
DANE BABCOCK HOSE FINISHER 12/05/21 1225: CARDIO Progress Notes Date and Time Date of Service 12/05/2021 Time of Evaluation 1215 Subjective Subjective: No Chest Pain, No shortness of breath, No Palpitations Vitals Vitals Vital Signs Date Time Temp Pulse Resp B/P (MAP) Pulse Ox O2 Delivery O2 Flow Rate FiO2 12/05/21 12:17 98.3 74 18 177/99 (125) 96 Room Air 98.3 Weight Weight [ ] Input and Output Intake and Output Intake and Output 12/05/21 07:00 Intake Total 805 ml Output Total 1100 ml Balance -295 ml Intake Oral 805 ml Output Urine Total 1100 ml # Bowel Movements 3 Laboratory Labs Laboratory Tests Test 12/04/21 16:52 12/04/21 21:07 12/05/21 07:50 12/05/21 07:52 Glucose (Fingerstick) 237 mg/dL (70-99) 210 mg/dL (70-99) 143 mg/dL (70-99) Hemoglobin 8.5 g/dL (13.0-17.5) Sodium Level 138 mmol/L (136-145) Potassium Level 3.9 mmol/L (3.5-5.1) Chloride Level 101 mmol/L (98-107) Carbon Dioxide Level 26 mmol/L (21-32) Anion Gap 11 (6-14) Blood Urea Nitrogen 57 mg/dL (8-26) Creatinine 7.5 mg/dL (0.7-1.3) Estimated GFR (Cockcroft-Gault) 7.5 Glucose Level 138 mg/dL (70-99) Calcium Level 8.5 mg/dL (8.5-10.1) Iron Level 21 ug/dL (65-175) Total Iron Binding Capacity 173 ug/dL (250-450) Iron Saturation 12 % (15-34) Ferritin 318 ng/mL (26-388) Test 12/05/21 12:11 Glucose (Fingerstick) 109 mg/dL (70-99) Physical Exam HEENT: Neck Supple W Full Motion Chest: Symmetric LUNGS: Other (diminished bases ) Heart: RRR (SR) Abdomen: Soft N/T Extremities: Other (trace pedal edema ) Neurology: alert, oriented, follow commands Assessment Assessment 1. Acute on chronic diastolic CHF and pleural effusion; r/t renal failure. Echo 12/23 with preserved LV systolic function. Stress test 12/23 without normal perfusion. Limited echo showed LVEF 60%, no WMA 2. Accelerated hypertensive: continues to be labile 3. New ESRD 4. Diabetes, II 5. Hyperlipidemia 6. GERD Recommendations Avoid nephrotoxins Fluid off loading per HD Continue metoprolol, amlodipine, hydralazine, and Imdur . Increase imdur. HBPM and will titrate meds per BP trend as an outpt No ACEi/ARB for now Supportive care Justicifation of Admission Dx: Justifications for Admission: Justification of Admission Dx: Yes JUAN MANUEL OLGUIN MD 12/05/21 1455: CARDIO Progress Notes Plan Plan The patient was seen and interviewed as well as examined at the bedside. The chart was reviewed. The case was discussed. Agree with the plan of care. DANE BABCOCK APRN December 05, 2021 12:25 JUAN MANUEL OLGUIN MD December 05, 2021 14:55
--- NOTE | 2021-12-05 15:25 | NUR ---
Patient and educated on discharge education. 2L taken of during dialysis today. Patient IV and telemonitor discontinued. Home with self care. Patient to follow up with machine taper and primary. Awaiting chair time with social work to return their call to patient.
--- NOTE | 2021-12-05 18:07 | PATHOLOGY ---
[facility] Accession Number: [id number] . 01 Material submitted: . kidney - RIGHT RENAL BIOPSY . 01 Clinical history: . ACUTE ON CHRONIC RENAL FAILURE ADRIENNE ON CKD CKD STAGE 3B/4 DM,CHF . 02 Diagnosis: Special studies report received from [facility] [address] [place] [address], [address], [place] [address], on case [id number], labeled with their number [id number] dated 12/01/2021. . Specimen submitted: By Jen Johnson MD For Kidney, biopsy . DIAGNOSIS: . Advanced Diabetic Glomerulosclerosis, RPS Class IV. . Comment: Clinical correlation is recommended to rule out rhabdomyolysis. . Chronicity Summary Total Glomeruli-26 Global Glomerulosclerosis-15 Segmental Sclerosis-Present Interstitial Fibrosis-Severe Tubular Atrophy-Severe Arterial Intimal Fibrosis-Moderate Arteriolar Hyalinosis-Severe . Reference: Ruby TW, Carlitos AL, Ronnie K, et al. Pathologic classification of diabetic nephropathy. J Am Soc Nephrol. 2010; 21:556-563. . Clinical History: The patient is a 56-year-old man with acute on chronic kidney disease and nephrotic range proteinuria. He has a history of diabetes, uncontrolled hypertension, and smoking. Serum creatinine increased from 1.8-1.9 to 4.4. Serum albumin is 2.7. Proteinuria is 7.7 g. . Gross Description: Received from [facility] via [facility] are two specimen bottles; one bottle contains formalin and the other contains Juve's fixative. The bottles are labeled with the patient's name (Rene Bates) and date of (1965). Per the submitted paperwork, the outside number is [id number]. . Received in formalin are three pieces of mack tissue measuring 0.2 x 0.1 x 0.1 cm, 1.1 x 0.1 x 0.1 cm, and 1.5 x 0.1 x 0.1 cm. Two pieces are submitted for electron microscopy and the remainder of the tissue is submitted in its entirety for light microscopy. . Received in Juve's fixative is one piece of mack tissue measuring 0.8 x 0.1 x 0.1 cm. The specimen is submitted in its entirety for immunofluorescence microscopy. . Microscopic Description: LIGHT MICROSCOPY: . Light microscopy tissue sections are stained for Hematoxylin and Eosin (x2), Periodic Acid James (x2), Huff Methenamine Silver (x1), Silver Methenamine with Dianna Trichrome (x1), and Dianna Trichrome (x1). Sections of kidney are represented by approximately 50% cortex and show up to 20 glomeruli with 11 globally sclerotic. . The remaining glomeruli are enlarged and show severe mesangial matrix expansion with frequent, variably sized nodule formation and mild to moderate mesangial hypercellularity. There is frequent segmental sclerosis and hyalinosis. There is no endocapillary proliferation, fibrinoid necrosis, or crescent formation. The glomerular basement membranes appear thickened but are without holes, spikes, or double contours on silver stain. There is severe interstitial fibrosis and tubular atrophy involving approximately 70-80% of the cortex. There is an interstitial mixed inflammatory infiltrate present within the areas of fibrosis. The tubular epithelium shows basement membrane thickening and cytoplasmic attention. There are no atypical tubular proteinaceous casts. There is severe arteriolar hyalinosis. Arteries show moderate intimal fibrosis. There is no arteritis present. A [place] red stain for amyloid is negative. Toluidine blue-stained sections show a single intact glomerulus. . Standard of care requirements for proper analysis of renal biopsies mandates serial sections, and PAS, Huff silver, trichrome and SMMT stains at multiple levels. PAS stains are used to evaluate various aspects of the glomerular, tubular, and vascular basement membranes. Huff silver stains are used to evaluate thickening, reduplication, "spiking" or "bubbling" of the glomerular basement membrane. Toluidine blue-stained sections highlight glomerular basement membranes, demonstrate unusual types of deposits, reveal details of tubular epithelial cells and aid in the analysis of vascular lesions. Dianna trichrome stains are used to evaluate interstitial fibrosis and basement membrane deposits. The SMMT stain helps evaluate basement membrane changes, immune deposits and tubulointerstitial scarring. Controls are routinely run on all special stains and are verified for acceptability. A review of the technical quality of routine slides is made before results are reported. . IMMUNOFLUORESCENCE: The sections are stained for IgG, IgM, IgA, C3, C1q, albumin, fibrinogen, and kappa and lambda light chains. The renal parenchyma submitted consists of 20% cortex. Five glomeruli are present for evaluation with four globally sclerotic. All stains are negative in the single intact glomerulus. There is no significant extraglomerular staining. [place] and lambda stain equally throughout the tubulointerstitium. . Performance of all immunofluorescence stains are verified for acceptability before results are reported. Internal antigens within the kidney parenchyma serve as positive and negative controls. . ELECTRON MICROSCOPY: . Two blocks are prepared. Ultrastructural evaluation of a glomerulus reveals basement membranes that are variably thickened. There is mesangial matrix expansion present. Though the mesangium contains ill-defined densities, no definite immune-type electron-dense deposits are present. No immune-type electron-dense deposits are identified along the capillary barkley. There is moderate to severe epithelial foot process effacement. The tubular basement membranes are without deposits. . Special procedures including immunofluorescence and electron microscopy correlate with the light microscopy findings. . . Note: Some of the tests reported here may have been developed and performance characteristics determined by [facility] They have not been cleared or approved by the U.S. Food and Drug Administration (FDA). The FDA does not require this test to go through premarket FDA review. This test is used for clinical purposes. It should not be regarded as investigational or for research. [facility] is certified under the Clinical Laboratory Improvement Amendments of 1988 (CLIA) as qualified to perform high complexity clinical laboratory testing. . . Physician/Physician's office called on 12/01/2021 at 4:21 PM Central. . *I have reviewed the clinical history, the pertinent gross findings, all microscopic materials, discussed the case with the clinician when appropriate, and have rendered the final diagnosis. . . Final Diagnosis performed by Ana Kahn M.D. Electronically signed 12/01/2021 6:05:20 PM . . A complete copy of the report is on file. . Professional and technical services performed by [facility] at [address] [place] [address], [facility] [address], [address]. . (ROSALINO:isa; 12/04/2021) S 12/05/2021 0821 Local . 02 Electronically signed: . Randy Owen MD, Pathologist NPI- [id number] . 01 Gross description: . The specimen is received in formalin, labeled "Rene Bates, renal biopsy". Received are three needle cores of pale mack soft tissue ranging in length from 0.2 to 1.5 cm, with each measuring 0.1 cm in diameter. The specimen is forwarded to an outside laboratory for further processing. . Also received is a container of Juve's fixative, labeled "Rene Bates, renal biopsy". Received is a single needle core of pale mack tissue measuring 0.8 cm in length by 0.1 cm in diameter. The specimen is forwarded to an outside laboratory for further processing. (CAA; 12/05/2021) QAC/QAC 12/05/2021 0819 Local . 02 Pathologist provided ICD-10: N18.32 . 02 CPT . 172477 Specimen Comment: A courtesy copy of this report has been sent to [phone] Specimen Comment: [phone], Specimen Comment: Report sent to , DR ALVARENGA / DR LALA Performed at: 01 [facility] [address] [facility] [address], [place] [id number] MD Bao Rahman MD Phone: [phone] Performed at: 02 [facility] [address] [place], [place] [id number] MD Randy Owen MD Phone: [phone]
--- NOTE | 2021-12-06 11:05 | DS ---
DATE OF DISCHARGE: 12/05/2021 ADMISSION DIAGNOSES: Acute on chronic systolic and diastolic heart failure, volume overload, chronic renal failure. DISCHARGE DIAGNOSES: Resolving volume overload, status post initiation of dialysis, resolving acute on chronic systolic and diastolic heart failure, diabetes, hypertension. CONSULTS: Nephrology and Cardiology. PROCEDURES: Dialysis access placement and dialysis. HOSPITAL COURSE: The patient is a pleasant middle-aged male who presented with acute on chronic systolic and diastolic heart failure and volume overload. He had chronic kidney disease. He was admitted. The above consults were obtained. We tried to diurese him, but he still remained somewhat volume overload. We initiated dialysis. Yesterday, I saw and examined him. He is doing well. I spoke with the director of casework department. They were arranging chair time. He was discharged to home. DISPOSITION: Home. ACTIVITY: As tolerated. DIET: Renal. DISCHARGE MEDICATIONS: Please see the MRAD. Imdur 60 a day, metoprolol 25 a day, trazodone 50 at bedtime, amlodipine 10 a day, glimepiride 4 a day and hydralazine 100 b.i.d. Total time 31 minutes. [facility] DR: Neeru TID: [id number]
== END 2021-12-05 15:25 | disposition home or self-care (01) | DRG 291 ==
LOC: ER 13:20 → ED HOLD 17:41 → 2 NORTH 20:06
PROVIDERS: ADMIT Family Medicine; ATTEND Family Medicine
PROC: 02PA33Z Removal of Infusion Device from Heart, Percutaneous Approach (ICD-10-PCS; 2021-11-28)
PROC: 02H633Z Insertion of Infusion Device into Right Atrium, Percutaneous Approach (ICD-10-PCS; 2021-11-28)
PROC: 0JH63XZ Insertion of Tunneled Vascular Access Device into Chest Subcutaneous Tissue and Fascia, Percutaneous Approach (ICD-10-PCS; 2021-11-28)
PROC: B5181ZA Fluoroscopy of Superior Vena Cava using Low Osmolar Contrast, Guidance (ICD-10-PCS; 2021-11-28)
PROC: 5A1D70Z Performance of Urinary Filtration, Intermittent, Less than 6 Hours Per Day (ICD-10-PCS; 2021-11-30)
PROC: 5A1D70Z Performance of Urinary Filtration, Intermittent, Less than 6 Hours Per Day (ICD-10-PCS; 2021-12-01)
PROC: 0TB03ZX Excision of Right Kidney, Percutaneous Approach, Diagnostic (ICD-10-PCS; 2021-12-01)
PROC: B548ZZA Ultrasonography of Superior Vena Cava, Guidance (ICD-10-PCS; 2021-12-01)
PROC: 5A1D70Z Performance of Urinary Filtration, Intermittent, Less than 6 Hours Per Day (ICD-10-PCS; 2021-12-01)
PROC: 5A1D70Z Performance of Urinary Filtration, Intermittent, Less than 6 Hours Per Day (ICD-10-PCS; 2021-12-02)
PROC: 5A1D70Z Performance of Urinary Filtration, Intermittent, Less than 6 Hours Per Day (ICD-10-PCS; 2021-12-03)
PROC: 5A1D70Z Performance of Urinary Filtration, Intermittent, Less than 6 Hours Per Day (ICD-10-PCS; principal; 2021-12-05)
PROC: 5A1D70Z Performance of Urinary Filtration, Intermittent, Less than 6 Hours Per Day (ICD-10-PCS; 2021-12-05)
DX: I13.2 Hypertensive heart and chronic kidney disease with heart failure and with stage 5 chronic kidney disease, or end stage renal disease (principal); I50.43 Acute on chronic combined systolic (congestive) and diastolic (congestive) heart failure; N18.6 End stage renal disease; N17.9 Acute kidney failure, unspecified; D64.9 Anemia, unspecified; E11.22 Type 2 diabetes mellitus with diabetic chronic kidney disease; E11.649 Type 2 diabetes mellitus with hypoglycemia without coma; E78.5 Hyperlipidemia, unspecified; F17.210 Nicotine dependence, cigarettes, uncomplicated; K21.9 Gastro-esophageal reflux disease without esophagitis; Z82.49 Family history of ischemic heart disease and other diseases of the circulatory system; Z86.73 Personal history of transient ischemic attack (TIA), and cerebral infarction without residual deficits; Z99.2 Dependence on renal dialysis; M19.90 Unspecified osteoarthritis, unspecified site; Z88.8 Allergy status to other drugs, medicaments and biological substances; Z90.49 Acquired absence of other specified parts of digestive tract
CPT/HCPCS: 36415; 36556; 36581; 50200; 71045; 76775; 76937; 76942; 77001; 80048; 80053; 80069; 81001; 82728; 82962; 83540; 83550; 83735; 83880; 84484; 85007; 85018; 85025; 85027; 85610; 85730; 86317; 86704; 86706; 86707; 87340; 87426; 88300; 93005; 93308; 99152; 99153; C1750; C1892; J0360; J0690; J1170; J1644; J1650; J1815; J1940; J2250; J2405; J3010; J3490; 99285-25; G0378